=== PATIENT | male | born 1980 | race Caucasian/White ===

== ENCOUNTER → 2017-12-03 12:37 | Outpatient (CLI) | payer OTHER, SELFPAY ==
[2017-12-03 13:22] LABS: Basophils # 0.1 K/mm3 (0-0.2); Eosinophils # 0.3 K/mm3 (0.0-0.4); Eosinophils % 3.7 % (0.1-12.0); Hematocrit 52.1 % (42.0-52.0); Hemoglobin 16.7 g/dL (14.1-18.0); Lymphocytes % 22.4 K/mm3 (10-50); Mean Corpuscular Volume 90.5 fl (80-94); Mean Platelet Volume 7.5 fl (7.4-10.4); Monocytes # 0.7 K/mm3 (0.1-1.0); Monocytes % 7.4 % (1.7-9.3); Neutrophils # 5.9 K/mm3 (1.8-7.8); Neutrophils % 65.6 % (37.0-80.0); Platelet Count 256 K/mm3 (142-424); Red Blood Count 5.75 M/mm3 (4.60-6.20); Red Cell Distribution Width 12.7 % (11.5-17.5); White Blood Count 8.9 K/mm3 (4.8-10.8)
[2017-12-03 13:40] LABS: Alanine Aminotransferase 28 U/L (12-78); Albumin Level 4.2 gm/dL (3.4-5.0); Albumin/Globulin Ratio 1.3 (1.1-1.8); Alkaline Phosphatase 79 U/L (46-116); Anion Gap 10.5 mEq/L (5-15); Aspartate Amino Transferase 16 U/L (15-37); Bilirubin,Total 0.3 mg/dL (0.2-1.0); Blood Urea Nitrogen 17 mg/dL (7-18); Calcium 9.2 mg/dL (8.5-10.1); Carbon Dioxide 31 mmol/L (21.0-32.0); Chloride 106 mmol/L (98-107); Chol/HDL Ratio 3.1 (1-3.5); Cholesterol 184 mg/dL (140-200); Creatinine,Serum 0.91 mg/dL (0.70-1.30); Estimated Glomerular Filt Rate 94 ml/min (>60); GFR (African American) 113 ML/MIN (>60); Globulin 3.3 gm/dl (1.3-3.2); Glucose 98 mg/dL (74-106); HDL Cholesterol 59 mg/dL (27-67); LDL Cholesterol 113 mg/dL (0-130); Potassium 4.5 mmoL/L (3.5-5.1); Sodium 143 mmol/L (136-145); Thyroid Stimulating Hormone 2.32 uIU/ml (0.358-3.740); Total Protein,Serum 7.5 gm/dL (6.4-8.2); Triglycerides 61 mg/dL (30-200); VLDL Cholesterol 12 mg/dL (0-40)
[2017-12-04 15:41] LABS: Vitamin B12 769 pg/mL (232-1245)
== END ==
PROVIDERS: Visit Provider Internal Medicine Adolescent Medicine
DX: Z00.00 Encounter for general adult medical examination without abnormal findings (principal); E03.9 Hypothyroidism, unspecified; G25.0 Essential tremor
CPT/HCPCS: 36415; 80053; 80061; 82607; 84443; 85025

== ENCOUNTER 2020-05-10 15:45 | Emergency (ER) | payer BC, SELFPAY ==
[2020-05-10 16:12] VITALS: BP 134/84; PULSE 64; RESP 19; TEMP 36.9; O2SAT 98; BMI 25.8
--- NOTE | 2020-05-10 16:18 | HMH.EDUTC ---
[facility] Disposition Clinical Impression: Low back pain Qualifiers: Chronicity: acute Back pain laterality: left Sciatica presence: with sciatica Sciatica laterality: sciatica of left side Qualified Code(s): M54.42 - Lumbago with sciatica, left side Sciatica Qualifiers: Laterality: left Qualified Code(s): M54.32 - Sciatica, left side Disposition: Home, Self-Care Condition on Discharge: Good Instructions: Low Back Pain, DI for Low Back Pain Additional Instructions: Go home and rest. It would be best if you rested tomorrow too. No heavy lifting. No twisting. Take the oral medications as directed. The muscle relaxer (robaxin) will make you drowsy, so don't drive or operate heavy machinery after taking it. Don't start the oral steroids (medrol dose pack) until tomorrow, since you had the shots in here today. Follow up with your regular doctor. GO TO THE ER FOR ANY WORSENING SYMPTOMS OR CONCERN, ESPECIALLY BOWEL OR BLADDER ISSUES, SADDLE AREA NUMBNESS, FEVER, ETC Prescriptions: methylPREDNISolone [Medrol] 4 mg PO DIRECTED 6 Days #21 tab.ds.pk Transmission Status: Received by [id number] Methocarbamol [Robaxin 500mg Tab] 500 mg PO BIDP PRN #30 tab PRN Reason: Muscle Spasm Transmission Status: Received by [id number] Referrals: Juno Ambrocio [Primary Care Provider] - Forms: Work/School Release Time of Disposition: 16:34 Medical Decision Making - Medical Records Medical records reviewed: No: I reviewed the patient's medical records. - Mark Inquiry Pt receiving controlled substance: No Vital Signs: 05/10/20 16:12 05/10/20 16:51 Temperature 98.4 F 98.4 F Temperature Source Oral Pulse Rate 64 Pulse Rate [Right Brachial] 64 Respiratory Rate 19 19 Blood Pressure 134/84 Blood Pressure [Right Arm] 134/84 Blood Pressure Mean [Right Arm] 100 Blood Pressure Source [Right Arm] Automatic Cuff Blood Pressure Position [Right Arm] Sitting 02 Sat by Pulse Oximetry 98 Oxygen Delivery Method Room Air Orders (Tests/Meds): ED MEDICATIONS Discontinued Medications Generic Name Dose Route Start Last Admin Trade Name Freq PRN Reason Stop Dose Admin Ketorolac Tromethamine 60 mg 05/10/20 16:32 05/10/20 16:40 Toradol 60mg/2ml Vial IM 05/10/20 16:33 60 mg ONCE ONE Administration Methylprednisolone Sodium Succinate 125 mg 05/10/20 16:32 05/10/20 16:40 Solu-Medrol 125mg/2ml Vial IM 05/10/20 16:33 125 mg ONCE ONE Administration [facility] HPI - General Stated complaint: back pain Time Seen by Provider: 05/10/20 16:18 Mode of Arrival: Ambulatory Source of Information: Patient Limitations: No Limitations Description of Symptoms (Recalled from Triage Doc. by RN): PATIENT C/O LOWER BACK PAIN SINCE SUNDAY HEENT Symptoms (Recalled from RN notes): No Resp Symptoms (Recalled from RN notes): No Skin Symptoms (Recalled from RN notes): No MS Symptoms (Recalled from RN notes): Yes Functional Status (Recalled from RN notes): WNL - History of Present Illness Provider Complaint: He c/o left sided low back pain that radiates down his left leg at times. This started 3 days ago. - Related Data Home Medications Medication Instructions Recorded Confirmed Primidone [Mysoline 50mg tablet] 50 mg PO DAILY 12/10/17 12/10/17 Previous Rx's Medication Instructions Recorded levoFLOXacin [Levaquin 500mg 500 mg PO DAILY #10 tab 12/11/17 tab] Azithromycin [Z-Gordon 250mg Tab*] 250 mg PO UD DOSE PK #6 tab 05/09/18 Dextromethorphan Polistirex 10 ml PO Q12H #350 te.er.[email or web address] 05/09/18 [Delsym] Methocarbamol [Robaxin 500mg Tab] 500 mg PO BIDP PRN #30 tab 05/10/20 methylPREDNISolone [Medrol] 4 mg PO DIRECTED 6 Days #21 05/10/20 tab.ds.pk Allergies Allergy/AdvReac Type Severity Reaction Status Date / Time amoxicillin [AMOXICILLIN] Allergy Unknown Verified 12/10/17 22:35 chlorpheniramine Allergy Unknown Verified 12/10/17 22:35 RickFrom NENA Ortega
[2020-05-10 16:51] VITALS: BP 134/84; PULSE 64; RESP 19; TEMP 36.9; O2SAT 98
== END 2020-05-10 17:03 | disposition home or self-care (01) ==
PROVIDERS: Emergency Provider Nurse Practitioner Family; PCP Family Medicine
DX: M54.42 Lumbago with sciatica, left side (principal); Z88.1 Allergy status to other antibiotic agents; Z88.8 Allergy status to other drugs, medicaments and biological substances
CPT/HCPCS: 96372; 99201

== ENCOUNTER 2020-06-03 08:00 | Outpatient (RCR) | payer BC, SELFPAY ==
--- NOTE | 2020-05-20 11:46 | HMH.PTOPEV ---
PT Outpatient Evaluation Rehab PT Outpatient Evaluation Start: 05/20/20 10:54 Freq: Status: Active Protocol: Document 05/20/20 11:30 LIZZEDGARDO (Rec: 05/20/20 11:45 LIZZJESUSCHAUNCEY [id number]) Electronically Signed By James Del Rosario, PT 05/20/20 11:30 Outpatient Therapy Subjective History Subjective History Patient is a 39 year old male presenting to outpatient PT with reports of acute LBP with BLE radicular symptoms of insidious onset starting 2 weeks ago. Symptoms worse in the morning . No recent imaging to reports. Centralization of symptoms noted with lumbar extension. No other comorbidities to report. Chief Complaint Pain,Stiff,Paresthesia Symptom Type Ache,Sharp Symptoms Relieved By Rest/Positioning,Prescription Meds Symptoms Aggravated By Standing,Physical Activity, Twisting Prior Functional Limitations None Current Functional Limitations Lifting,Housework,Standing, Squatting,Recreation Activity, Walking,Bending/Stooping Symptom Description Constant but Variable Level of pain today (0-10) 5 Pain scale - at its best (0-10) 4 Pain scale - at its worst (0-10) 7 Lumbopelvic Eval Posture Thoracic Spine Posture Standing Position Neutral Lumbar Spine Posture Standing Position Increased Lordosis Assistive device Assistive Devices None / NA Gait Observation General Gait Pattern Observation Antalgic Gait,Decrease Weight Bear (L) Palapation tenderness bilateral lumbar spinal tenderness Yes: L 3/4/5 3/4 paraspinal tenderness Yes buttock tenderness Yes Lumbar/Sacral Palpation Findings Tenderness Accessory Movement L3 bilateral L4 bilateral L5 bilateral S1 bilateral Range of Motion Lumbar Spine Active Flexion Range of 32 inc radic Motion (degrees) Lumbar Spine Active Extension Range of 12 B iliopsoas dist Motion (degrees) Left Lumbar Spine Lateral Flexion Active 18 Range of Motion (degrees) Right Lumbar Spine Lateral Flexion 24 Active Range of Motion (degrees) Lumbar Spine ROM Limitations Soft Tissue Tightness Manual Muscle Test Bilateral Knee Extension Strength Grade 5 Normal Knee Flexion Strength Grade 5 Normal Hip Flexion Strength Grade
== END 2020-06-03 09:05 | disposition home or self-care (01) ==
LOC: PT 08:00
PROVIDERS: PCP Family Medicine; Visit Provider Family Medicine
DX: M54.42 Lumbago with sciatica, left side; M51.26 Other intervertebral disc displacement, lumbar region
CPT/HCPCS: 97010; 97014; 97110; 97163; G0283

== ENCOUNTER → 2020-09-09 15:39 | Outpatient (CLI) | payer BC, SELFPAY ==
--- NOTE | 2020-09-09 15:43 | XR_ITS ---
PROCEDURE: XR LUMBAR SPINE MIN 4V CLINICAL INDICATION: LUMBAGO OF LUMBAR REGION W/ SCIATICA COMPARISON: No exams were available for comparison FINDINGS: No fracture or dislocation. No lytic or blastic change. There is normal mineralization. The disc spaces are well preserved. There is 3 mm anterolisthesis of L5 on S1. There are post Faith foci of increased density within the region of the colon and may be related to ingested material. Other findings:None. IMPRESSION: Minimal anterolisthesis of L5 on S1 otherwise negative lumbar spine. Dictated by: Alex Moses MD 09/09/2020 16:38 Alex Moses MD in [place] 09/09/2020 16:38
--- NOTE | 2020-09-09 15:44 | XR_ITS ---
PROCEDURE: XR HIP LT 2-3V W/PELVIS CLINICAL INDICATION: LUMBAGO OF LUMBAR REGION W/ SCIATICA Hip pain COMPARISON: No exams were available for comparison FINDINGS: No fracture or dislocation is evident. No significant degenerative change. No lytic or blastic change. Unremarkable soft tissues. There are multiple pelvic phleboliths present IMPRESSION: No acute findings. Dictated by: Alex Moses MD 09/09/2020 16:34 Alex Moses MD in [place] 09/09/2020 16:34
== END ==
LOC: RAD 15:40
PROVIDERS: PCP Family Medicine; Visit Provider Family Medicine
DX: M54.42 Lumbago with sciatica, left side (principal); M54.5 Low back pain; M25.552 Pain in left hip
CPT/HCPCS: 72110; 73502

== ENCOUNTER → 2020-10-27 14:11 | Outpatient (CLI) | payer BC, SELFPAY ==
--- NOTE | 2020-10-27 14:16 | MR_ITS ---
PROCEDURE: MR LUMBAR SPINE WO CON CLINICAL INDICATION: LBP NO TRAUMA Pt c/o lbp with bilateral leg pain COMPARISON: CR XR LUMBAR SPINE MIN 4V from 09/09/2020 TECHNIQUE: Standard multiplanar multiecho sequences are performed without contrast. 3-D MIP and myelographic images are also rendered and reviewed FINDINGS: There is normal alignment. The spinal cord ends at the L1-L2 level. T12-L1: Mild degenerative disc disease. L1-L2: Unremarkable. L2-L3: Unremarkable. L3-L4: Unremarkable. L4-5: Unremarkable. L5-S1: Bulging disc with a small broad-based central/left paracentral disc protrusion which abuts the anteromedial aspect of both S1 nerve roots right greater than left. Facet hypertrophic changes are present with mild bilateral lateral recess and foraminal narrowing. IMPRESSION: Bulging disc at L5-S1 with a small broad-based central/left paracentral disc protrusion which abuts the anteromedial aspect of both S1 nerve roots right more so than left Dictated by: Alex Moses MD 10/28/2020 11:48 Alex Moses MD in [place] 10/28/2020 11:48
== END ==
LOC: RAD 14:11
PROVIDERS: PCP Family Medicine; Visit Provider Nurse Practitioner
DX: M54.5 Low back pain (principal); M51.26 Other intervertebral disc displacement, lumbar region
CPT/HCPCS: 72148; 76376

== ENCOUNTER 2021-02-20 21:17 | Emergency (ER) | payer BC, SELFPAY ==
[2021-02-20 21:38] VITALS: BP 132/82; PULSE 76; RESP 16; TEMP 37.6; O2SAT 97; BMI 30.1
[2021-02-20 22:20] LABS: Basophils # 0.1 K/mm3 (0-0.2); Basophils % 1.1 % (0.1-2.0); Eosinophils # 0.3 K/mm3 (0.0-0.4); Eosinophils % 3.5 % (0.1-12.0); Hematocrit 39.8 % (42.0-52.0); Hemoglobin 13.2 g/dL (14.1-18.0); Lymphocytes # 2.4 K/mm3 (0.7-4.5); Lymphocytes % 28.3 % (10-50); Mean Corpuscular HGB Conc 33.1 g/dL (31.8-35.4); Mean Corpuscular Hemoglobin 27.9 pg (27.0-31.2); Mean Corpuscular Volume 84.3 fl (80-94); Monocytes # 0.4 K/mm3 (0.1-1.0); Monocytes % 4.3 % (1.7-9.3); Neutrophils # 5.3 K/mm3 (1.8-7.8); Neutrophils % 62.8 % (37.0-80.0); Platelet Count 573 K/mm3 (142-424); Red Blood Count 4.73 M/mm3 (4.60-6.20); Red Cell Distribution Width 13.1 % (11.5-17.5); White Blood Count 8.4 K/mm3 (4.8-10.8)
[2021-02-20 22:29] LABS: Alanine Aminotransferase 36 U/L (12-78); Albumin Level 4.3 g/dl (3.5-5.0); Albumin/Globulin Ratio 1.3 (1.1-1.8); Alkaline Phosphatase 94 U/L (38-126); Anion Gap 11.7 mEq/L (5-15); Aspartate Amino Transferase 27 U/L (17-59); Bilirubin,Total 0.4 mg/dl (0.2-1.3); Blood Urea Nitrogen 18 mg/dl (9-20); Calcium 9.3 mg/dl (8.4-10.2); Carbon Dioxide 29 mmol/L (22.0-30.0); Chloride 102 mmol/L (98-107); Creatinine Clearance Estimated 132 mL/min (50-200); Estimated Glomerular Filt Rate 83 ml/min (>60); GFR (African American) 100 ML/MIN (>60); Globulin 3.2 g/dL (1.3-3.2); Glucose 119 mg/dl (74-100); Lactic Acid 1.1 mmol/L (0.7-2.1); Potassium 3.7 mmoL/L (3.5-5.1); Sodium 139 mmol/L (136-145); Total Protein,Serum 7.5 g/dl (6.3-8.2)
[2021-02-20 22:46] LABS: Procalcitonin 0.073 ng/mL (0.0-2.0)
--- NOTE | 2021-02-20 22:46 | HMH.EDWNDL ---
ED Disposition Clinical Impression: Encounter for postoperative wound check Disposition: Home, Self-Care Condition on Discharge: Good Instructions: DI for Laceration Repair Referrals: Lionel Crocker MD [Primary Care Provider] - - Critical Care Critical Care Time: No Attestation: On 02/20/21, the high probability of a clinically significant, sudden or life threatening deterioration of the following system(s) required my full and direct attention, intervention and personal management. The time I documented below is in addition to time spent performing reported procedures but includes the following listed in this critical care notation. Medical Decision Making - Medical Records Medical records reviewed: Yes: I reviewed the patient's medical records. - Mark Inquiry Pt receiving controlled substance: No Vital Signs: 02/20/21 21:38 Temperature 99.7 F H Temperature Source Oral Pulse Rate [Right Brachial] 76 Respiratory Rate 16 Blood Pressure [Right Arm] 132/82 Blood Pressure Mean [Right Arm] 98 Blood Pressure Source [Right Arm] Automatic Cuff Blood Pressure Position [Right Arm] Supine 02 Sat by Pulse Oximetry 97 Oxygen Delivery Method Room Air - Lab Data Lab results reviewed: Yes: I reviewed the patient's lab results. Lab Results 02/20/21 22:00: WBC 8.4, RBC 4.73, Hgb 13.2 L, Hct 39.8 L, MCV 84.3, MCH 27.9, MCHC 33.1, RDW 13.1, Plt Count 573 H, MPV 7.0 L, Neut % (Auto) 62.8, Lymph % (Auto) 28.3, Amador % (Auto) 4.3, Eos % (Auto) 3.5, Baso % (Auto) 1.1, Neut # (Auto) 5.3, Lymph # (Auto) 2.4, Amador # (Auto) 0.4, Eos # (Auto) 0.3, Baso # (Auto) 0.1 02/20/21 22:00: Sodium 139, Potassium 3.7, Chloride 102, Carbon Dioxide 29, Anion Gap 11.7, BUN 18, Creatinine 1.00, Estimated Creat Clear 132, Estimated GFR 83, Est GFR ( Amer) 100, Glucose 119 H, Calcium 9.3, Total Bilirubin 0.4, AST 27, ALT 36, Alkaline Phosphatase 94, Total Protein 7.5, Albumin 4.3, Globulin 3.2, Albumin/Globulin Ratio 1.3 02/20/21 22:00: Lactate 1.1 Result diagrams: 02/20/21 22:00 02/20/21 22:00 Orders (Tests/Meds): ORDERS Category Date Time Status CT lumbar spine w con Stat Cat Scan 02/20/21 21:[address] thoracic spine w con Stat Cat Scan 02/20/21 21:55 Ordered Comprehensive Metabolic Panel Stat Lab 02/20/21 22:00 Results Procalcitonin Stat Lab 02/20/21 22:00 Results Blood Culture Stat Micro 02/20/21 22:00 Received Wound Culture and Gram Stain Stat Micro 02/20/21 21:55 Ordered Wound/Laceration HPI - General Chief Complaint: Wound/Laceration Stated Complaint: incision pain Time Seen by Provider: 02/20/21 22:40 Mode of Arrival: Ambulatory Limitations: No Limitations Description of Symptoms (Recalled from ER Triage Doc. by RN): Had spinal fusion to L5 and S1 on February [address] Harrell in . [place] in place to lower back. Wound is draining, slight reddness around the site - History of Present Illness HPI narrative: This is a 40-year-old male presenting for wound check. Patient had a lumbar spine fusion by Dr. Harrell approximately 2 weeks ago and was closed with ruma. Patient was concerned as he was started to have drainage from the upper portion of the wound. He denies any purulence or pus and describes the drainage mostly as clear sanguinous. He denies any fever chills. No increased pain at the surgical site no radicular symptoms as currently. - Related Data Home Medications Medication Instructions Recorded Confirmed Oxycodone HCl 1 cap .ROUTE Q4-6H PRN 02/20/21 02/20/21 Previous Rx's Medication Instructions Recorded Methocarbamol [Robaxin 500mg Tab] 500 mg PO BIDP PRN #30 tab 05/10/20 Allergies Allergy/AdvReac Type Severity Reaction Status Date / Time amoxicillin [AMOXICILLIN] Allergy Unknown Verified 12/10/17 22:35 chlorpheniramine Allergy Unknown Verified 12/10/17 22:35 [From [facility]] codeine [From [facility]] Allergy Unknown Verified 12/10/17 2
[2021-02-20 23:14] VITALS: BP 131/89; PULSE 87; RESP 20; TEMP 37.5; O2SAT 98
== END 2021-02-20 23:26 | disposition home or self-care (01) ==
PROVIDERS: Emergency Provider Emergency Medicine; PCP Family Medicine
DX: G89.18 Other acute postprocedural pain (principal); B96.89 Other specified bacterial agents as the cause of diseases classified elsewhere; Z88.8 Allergy status to other drugs, medicaments and biological substances; F17.210 Nicotine dependence, cigarettes, uncomplicated
CPT/HCPCS: 80053; 83605; 84145; 85025; 87040; 87070; 87077; 87186; 87205; 99283

== ENCOUNTER 2021-05-13 08:56 | Emergency (ER) | payer BC, SELFPAY ==
[2021-05-13 09:11] VITALS: BP 142/93; PULSE 57; RESP 14; TEMP 37; O2SAT 97; BMI 30.8
[2021-05-13 09:35] VITALS: BP 142/93; PULSE 57; RESP 14; TEMP 37
--- NOTE | 2021-05-13 09:44 | HMH.EDUTC ---
[facility] [place] Clinical Impression: Viral syndrome, Exposure to COVID-19 virus Disposition: Home, Self-Care Condition on Discharge: Good Instructions: DI for COVID-19 (Suspected or Confirmed ), Preventing the Spread of Coronavirus Discharge Instructions Additional Instructions: Drink plenty of fluids. Take tylenol or ibuprofen for pain or fever. Take the medications as directed. Follow up with your regular doctor. GO TO THE ER FOR ANY WORSENING SYMPTOMS Quarantine until you know the results of your covid-19 test. If it is positive, the health department should call you and give you further instructions about your length of Quarantine and other things. Notify your school or workplace of your results and follow their instructions regarding return to work/school. = Prescriptions: Benzonatate [Tessalon Perle 100mg Cap] 100 mg PO TIDP PRN #30 cap PRN Reason: Cough Transmission Status: Received by [facility] Ondansetron [Zofran 4mg ODT] 4 mg PO DAILYP PRN #12 tab PRN Reason: Nausea Transmission Status: Received by [facility] Referrals: Lionel Crocker MD [Primary Care Provider] - Time of Disposition: 09:47 Medical Decision Making - Medical Records Medical records reviewed: No: I reviewed the patient's medical records. - Mark Inquiry Pt receiving controlled substance: No Vital Signs: 05/13/21 09:11 05/13/21 09:35 Temperature 98.6 F 98.6 F Temperature Source Oral Pulse Rate 57 L Pulse Rate [Left] 57 L Respiratory Rate 14 14 Blood Pressure 142/93 H Blood Pressure [Right Arm] 142/93 H Blood Pressure Mean [Right Arm] 109 02 Sat by Pulse Oximetry 97 - Lab Data Lab results reviewed: Yes: I reviewed the patient's lab results. Lab Results 05/13/21 09:33: Strep Scn Rapid Clinic Negative Orders (Tests/Meds): ORDERS Category Date Time Status Covid-19 Nasal PCR ([facility]) Routine Lab 05/13/21 09:12 Received Strep Screen Confirmation Stat Micro 05/13/21 09:33 Received [facility] HPI - General Stated complaint: Sore throat; cough; runny nose Time Seen by Provider: 05/13/21 09:44 Mode of Arrival: Ambulatory Source of Information: Patient Limitations: No Limitations HEENT Symptoms (Recalled from RN notes): Yes (sore throat, [place], and nasal drainage and congestion) Resp Symptoms (Recalled from RN notes): Yes (cough) Skin Symptoms (Recalled from RN notes): No MS Symptoms (Recalled from RN notes): No Functional Status (Recalled from RN notes): body aches - History of Present Illness Provider Complaint: He has had a runny nose and a dry cough for the past 4 days. - Related Data Home Medications Medication Instructions Recorded Confirmed Oxycodone HCl 1 cap .ROUTE Q4-6H PRN 02/20/21 02/20/21 Previous Rx's Medication Instructions Recorded Methocarbamol [Robaxin 500mg Tab] 500 mg PO BIDP PRN #30 tab 05/10/20 Benzonatate [Tessalon Perle 100mg 100 mg PO TIDP PRN #30 cap 05/13/21 Cap] Ondansetron [Zofran 4mg ODT] 4 mg PO DAILYP PRN #12 tab 05/13/21 Allergies Allergy/AdvReac Type Severity Reaction Status Date / Time amoxicillin [AMOXICILLIN] Allergy Unknown Verified 12/10/17 22:35 chlorpheniramine Allergy Unknown Verified 12/10/17 22:35 [From [facility]] codeine [From [facility]] Allergy Unknown Verified 12/10/17 22:35 dihydrocodeine Allergy Unknown Verified 12/10/17 22:35 [From [facility]] phenylephrine Allergy Unknown Verified 12/10/17 22:35 [From [facility]] pseudoephedrine Allergy Unknown Verified 12/10/17 22:35 [From [facility]] - Worker's Comp Is this a Worker's Comp case?: No [facility] History - Hepatitis A Screen Drug use history?: No High risk sexual behaviors?: No History of sexually transmitted infection?: No Currently employed?: No Childcare worker?: No Do you have indoor plumbing?: Yes Do you have electricity?: Yes Attestation statement:: This patient has been s
[2021-05-13 09:45] LABS: UTC Strep Screen (Rapid) Negative (Negative)
== END 2021-05-13 09:51 | disposition home or self-care (01) ==
PROVIDERS: Emergency Provider Nurse Practitioner Family; PCP Family Medicine
DX: U07.1 COVID-19 (principal); B34.9 Viral infection, unspecified; F17.210 Nicotine dependence, cigarettes, uncomplicated
CPT/HCPCS: 87880; 99203; G0463; U0003

== ENCOUNTER 2021-10-27 19:56 | Emergency (ER) | payer BC, SELFPAY ==
[2021-10-27 20:09] VITALS: BP 129/85; PULSE 60; RESP 18; TEMP 37.1; O2SAT 97; BMI 30.7
[2021-10-27 20:23] LABS: UTC Strep Screen (Rapid) Positive (Negative)
--- NOTE | 2021-10-27 20:29 | HMH.EDUTC ---
[facility] Disposition Clinical Impression: Strep throat Disposition: Home, Self-Care Condition on Discharge: Good Instructions: Strep Throat, DI for Strep Throat Additional Instructions: *Monitor Temp, Over the counter Motrin or Tylenol as directed/as needed Tylenol every 4 hours and Motrin every 6 hours (as long as your family doctor has told you that you can take it) for fever or pain. and straight to ER if unable to lower temp less than 101.0 after medication given *Warm salt water gargles may help to soothe the throat *Throat Lozenges *Warm fluids like tea with honey may help to soothe the throat *Sleep elevated *Humidifier/Vaporizer *If you did not take Penicillin shot or was unable to, start taking antibiotic immediately and make sure that you take it for the FULL length of time although you should start to feel better in 24-48 hours *change toothbrush and toothpaste 24-48 hours after starting to take antibiotics so you do not reinfect yourself Monitor Temp. Tylenol and/or Ibuprofen as needed. ER if fever is no less than 101 despite alternating Tylenol and Ibuprofen * Encourage fluids, water, Gatorade, powerade, pedialyte if infant/toddler/or child *Cold fluids, popsicles and ice cream may feel good on his throat Follow up IMMEDIATELY for new or worsening symptoms or no Noticeable improvement over the next 48-72 hours. 911 for difficulty breathing or swallowing Prescriptions: Azithromycin [Z-Gordon 250mg Tab] 250 mg PO DIRECTED #6 tab Transmission Status: Pending to [id number] Referrals: Lionel Crocker MD [Primary Care Provider] - As needed Time of Disposition: 20:50 Medical Decision Making - Mark Inquiry Pt receiving controlled substance: No Mark was queried for this patient: No Vital Signs: 10/27/21 20:09 Temperature 98.8 F Temperature Source Oral Pulse Rate [Right Radial] 60 Respiratory Rate 18 Blood Pressure [Right Arm] 129/85 Blood Pressure Mean [Right Arm] 99 Blood Pressure Source [Right Arm] Automatic Cuff Blood Pressure Position [Right Arm] Sitting 02 Sat by Pulse Oximetry 97 Oxygen Delivery Method Room Air - Lab Data Lab results reviewed: Yes: I reviewed the patient's lab results. Lab Results 10/27/21 20:09: Strep Scn Rapid Clinic Positive A Orders (Tests/Meds): ED MEDICATIONS Discontinued Medications Generic Name Dose Route Start Last Admin Trade Name Larry PRN Reason Stop Dose Admin Azithromycin 500 mg 10/27/21 20:36 10/27/21 20:45 Azithromycin 250mg Tablet PO 10/27/21 20:37 500 mg ONCE ONE Administration Medical Decision Narrative: Patient state that he has taken azithromycin before without complications [facility] HPI - General Stated complaint: sore throat Time Seen by Provider: 10/27/21 20:29 Mode of Arrival: Ambulatory Source of Information: Patient Limitations: No Limitations Description of Symptoms (Recalled from Triage Doc. by RN): C/O sore throat since yesterday. Advises his has strep throat HEENT Symptoms (Recalled from RN notes): Yes (sore throat) Resp Symptoms (Recalled from RN notes): No Skin Symptoms (Recalled from RN notes): No MS Symptoms (Recalled from RN notes): No Functional Status (Recalled from RN notes): n/a - History of Present Illness Provider Complaint: Patient states that he has been having sore throat since yesterday States that his was dx with strep throat recently and he thinks he may have it now too - Related Data Home Medications Medication Instructions Recorded Confirmed Oxycodone HCl 1 cap .ROUTE Q4-6H PRN 02/20/21 02/20/21 Previous Rx's Medication Instructions Recorded Methocarbamol [Robaxin 500mg Tab] 500 mg PO BIDP PRN #30 tab 05/10/20 Benzonatate [Tessalon Perle 100mg 100 mg PO TIDP PRN #30 cap 05/13/21 Cap] Ondansetron [Zofran 4mg ODT] 4 mg PO DAILYP PRN #12 tab 05/13/21 Azithromycin [Z-Gordon 250mg Tab] 250 mg PO DIRECTED #6 tab 10/27/21 Allergies Allergy
[2021-10-27 21:06] VITALS: BP 129/85; PULSE 60; RESP 18; TEMP 37.1; O2SAT 97
== END 2021-10-27 21:08 | disposition home or self-care (01) ==
PROVIDERS: Emergency Provider Nurse Practitioner; PCP Family Medicine
DX: J02.0 Streptococcal pharyngitis (principal)
CPT/HCPCS: 87880; 99202; G0463

== ENCOUNTER 2022-07-12 23:59 | Emergency (ER) | payer BC, SELFPAY ==
[2022-07-13 00:01] VITALS: BP 143/80; PULSE 72; RESP 19; TEMP 36.9; O2SAT 97; BMI 26.5
--- NOTE | 2022-07-13 00:20 | XR_ITS ---
PROCEDURE INFORMATION: Exam: XR Chest Exam date and time: 07/13/2022 12:33 AM Age: 41 years old Clinical indication: Cough; Additional info: Cough, chest congestion TECHNIQUE: Imaging protocol: Radiologic exam of the chest. Views: 2 views. COMPARISON: CR CXR CHEST(2 VIEWS-NOT PORTABLE) 12/14/2015 5:10 PM FINDINGS: Lungs: Unremarkable. No consolidation. Pleural spaces: Unremarkable. No pleural effusion. No pneumothorax. Heart/Mediastinum: Unremarkable. No cardiomegaly. Vasculature: Unremarkable. Bones/joints: Unremarkable. IMPRESSION: No acute findings.
[2022-07-13 00:25] LABS: Coronavirus 19, PCR Not Detected (NotDetected); Influenza A, PCR Not Detected (NotDetected); Influenza B, PCR Not Detected (NotDetected)
[2022-07-13 00:32] LABS: Strep Scrn Group A (Rapid) Negative (Negative)
--- NOTE | 2022-07-13 00:48 | HMH.EDURI ---
Discharge Plan Disposition Patient Disposition: Home, Self-Care Prescriptions Prescriptions: New azithromycin [azithromycin] 250 mg tablet 250 mg PO DIRECTED Qty: 6 0RF Rx Instructions: Take two (2) tablets on day #1, then one (1) tablet day #2 thru #5 benzonatate 100 mg Capsule 100 mg PO Q8H Qty: 14 0RF prednisone [prednisone] 20 mg tablet 20 mg PO BID Qty: 10 0RF Referrals Follow up/Referrals: Chito Rose MD [Primary Care Provider] - See instructions Clinical Impressions Clinical Impression: Bronchitis Instructions Patient Instructions: DI for Acute Bronchitis Discharge ED Provider: Maxwell Tovar URI/Sore Throat HPI General Chief Complaint: Upper Respiratory Infection Stated Complaint: Sore throat,cough,congestion Time Seen by Provider: 07/13/22 00:48 Mode of Arrival: Family Vehicle Source of Information: Patient, Spouse and Medical Record Limitations: No Limitations Description of Symptoms (Recalled from ER Triage Doc. by RN): Pt c/o sore throat, cough, and chest congestion for 1 week. States he was taking mucinex and it felt like it got better, then it back slid.. Pt now taking Robitussin. Denies any n/v/d. Denies any fever, chills. Denies any SOA. 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 Complaint: fever, cough and sore throat Onset (ago): day(s) Duration: intermittent Severity: moderate Able to tolerate fluids by mouth: Yes Associated symptoms: denies other symptoms Treatments prior to arrival: acetaminophen Related Data Previous Rx's Medication Instructions Recorded azithromycin 250 mg tablet 250 mg PO DIRECTED #6 tabs 07/13/22 benzonatate 100 mg capsule 100 mg PO Q8H #14 caps 07/13/22 prednisone 20 mg tablet 20 mg PO BID #10 tabs 07/13/22 Allergies Allergy/AdvReac Type Severity Reaction Status Date / Time amoxicillin [AMOXICILLIN] Allergy Unknown Verified 12/10/17 22:35 chlorpheniramine Allergy Unknown Verified 12/10/17 22:35 [From [facility]] codeine [From [facility]] Allergy Unknown Verified 12/10/17 22:35 dihydrocodeine Allergy Unknown Verified 12/10/17 22:35 [From [facility]] phenylephrine Allergy Unknown Verified 12/10/17 22:35 [From [facility]] pseudoephedrine Allergy Unknown Verified 12/10/17 22:35 [From [facility]] [facility] Social History Smoking Status: Former smoker second hand exposure: Yes alcohol intake: never current occupational status: other Travel in the last 8 weeks: None ROS Obtained: Yes All systems reviewed & no additional complaints except as documented Physical Exam General General appearance: alert and in no apparent distress Head Head exam: normocephalic Eye Eye exam: Present PERRL and EOMI; Absent scleral icterus ENT ENT exam: Present mucous membranes moist Neck Neck exam: Present trachea midline Respiratory Respiratory exam: Present normal lung sounds bilaterally; Absent respiratory distress Cardiovascular Cardiovascular exam: Present regular rate Abdominal Exam Abdominal exam: Present soft; Absent distention, tenderness, guarding or rebound Extremities Exam Extremities exam: Present full ROM Neurological Exam Neurological exam: Present alert, oriented X3 and CN II-XII intact Psychiatric Psychiatric exam: Present normal affect Skin Skin exam: Absent rash Medical Decision Making Medical Records Medical records reviewed: Yes I reviewed the patient's medical records. Mark Inquiry Pt receiving controlled substance: No Vital Signs: 07/13/22 00:01 Temperature 98.5 F Temperature Source Oral Pulse Rate [Right] 72 Respiratory Rate 19 Blood Pressure [Right Arm] 143/80 H Blood Pressure Mean [Right Arm] 101 Blood Pressure Source [Right Arm] Automatic Cuff 02 Sat by Pulse Oximetry 97 Oxygen Delivery Method Room Air Lab Data Lab results reviewed: Yes I reviewed the patient's lab results.
[2022-07-13 01:32] VITALS: BP 140/78; PULSE 70; RESP 18; TEMP 36.6; O2SAT 98
== END 2022-07-13 01:34 | disposition home or self-care (01) ==
PROVIDERS: Emergency Provider Emergency Medicine; PCP Family Medicine
DX: J40 Bronchitis, not specified as acute or chronic (principal)
CPT/HCPCS: 71046; 87430; 99283; C9803; U0003; U0005

== ENCOUNTER 2022-08-19 11:30 | Emergency (ER) | payer BC, SELFPAY ==
[2022-08-19 12:38] VITALS: BP 126/83; PULSE 76; RESP 16; TEMP 37.2; O2SAT 97; BMI 26.6
[2022-08-19 12:43] LABS: UTC Strep Screen (Rapid) Negative (Negative)
[2022-08-19 12:45] LABS: UTC Influenza A Antigen Negative (Negative); UTC Influenza B Antigen Negative (Negative)
--- NOTE | 2022-08-19 13:10 | EXP.UTC ---
Discharge Plan Disposition Patient Disposition: Home, Self-Care Condition: Good Prescriptions Prescriptions: No Action azithromycin [azithromycin] 250 mg tablet 250 mg PO DIRECTED Qty: 6 0RF Rx Instructions: Take two (2) tablets on day #1, then one (1) tablet day #2 thru #5 benzonatate 100 mg Capsule 100 mg PO Q8H Qty: 14 0RF prednisone [prednisone] 20 mg tablet 20 mg PO BID Qty: 10 0RF Referrals Follow up/Referrals: Chito Rose MD [Primary Care Provider] - See instructions Clinical Impressions Clinical Impression: URI (upper respiratory infection) Instructions Patient Instructions: DI for Viral Upper Respiratory Infection -- Adult Discharge ED Provider: Sheridan Rodrigues [facility] [place] HPI General Stated complaint: swollen,painful throat Mode of Arrival: Ambulatory Source of Information: Patient Limitations: No Limitations Time Seen by Provider: 08/19/22 13:10 Description of Symptoms (Recalled from Triage Doc. by RN): pt comes in with c/o sore throat and headache. smyptoms began 1 week ago HEENT Symptoms (Recalled from RN notes): Yes Resp Symptoms (Recalled from RN notes): No Skin Symptoms (Recalled from RN notes): No MS Symptoms (Recalled from RN notes): No Functional Status (Recalled from RN notes): n/a Related Data Previous Rx's Medication Instructions Recorded azithromycin 250 mg tablet 250 mg PO DIRECTED #6 tabs 07/13/22 benzonatate 100 mg capsule 100 mg PO Q8H #14 caps 07/13/22 prednisone 20 mg tablet 20 mg PO BID #10 tabs 07/13/22 Allergies Allergy/AdvReac Type Severity Reaction Status Date / Time amoxicillin [AMOXICILLIN] Allergy Unknown Verified 08/19/22 12:39 chlorpheniramine Allergy Unknown Verified 08/19/22 12:39 [From [facility]] codeine [From [facility]] Allergy Unknown Verified 08/19/22 12:39 dihydrocodeine Allergy Unknown Verified 08/19/22 12:39 [From [facility]] phenylephrine Allergy Unknown Verified 08/19/22 12:39 [From [facility]] pseudoephedrine Allergy Unknown Verified 08/19/22 12:39 [From [facility]] prednisone AdvReac Mild Agitated Verified 08/19/22 12:39 Worker's Comp Is this a Worker's Comp case?: No PFSH PFSH Disclaimer: The information contained in this section may have been updated after the patient was seen, as this information can be updated by other users. Social History Smoking Status: Former smoker second hand exposure: Yes alcohol intake: never current occupational status: other Travel in the last 8 weeks: None ROS Obtained: Yes All systems reviewed & no additional complaints except as documented Constitutional Constitutional: Reports malaise Eyes Eyes: Reports system reviewed and no additional complaints, except as documented ENT Ears, Nose, Mouth, and Throat: Reports nasal discharge, Reports odynophagia, Reports post nasal drip and Reports sore throat Cardiovascular Cardiovascular: Reports system reviewed and no additional complaints, except as documented Respiratory Respiratory: Reports system reviewed and no additional complaints, except as documented Gastrointestinal Gastrointestingal: Reports system reviewed and no additional complaints, except as documented and odynophagia Genitourinary Male Genitourinary: Reports system reviewed and no additional complaints, except as documented Musculoskeletal Musculoskeletal: Reports system reviewed and no additional complaints, except as documented Integumentary/Breasts Skin/Breast: Reports system reviewed and no additional complaints, except as documented Neurologic Neurologic: Reports system reviewed and no additional complaints, except as documented Endocrine Endocrine: Reports system reviewed and no additional complaints, except as documented Hematologic/Lymphatic Henatologic/Lymphatic: Reports system reviewed and no additional complaints, except as documented Allergic/Immunologic Allergic/Immunologic: Reports system reviewed and
[2022-08-19 13:29] VITALS: BP 126/83; PULSE 76; RESP 16; TEMP 37.2
== END 2022-08-19 13:36 | disposition home or self-care (01) ==
PROVIDERS: Emergency Provider Nurse Practitioner Family; PCP Family Medicine
DX: J06.9 Acute upper respiratory infection, unspecified (principal)
CPT/HCPCS: 87804; 87880; 99212; G0463

== ENCOUNTER 2023-06-14 15:26 | Emergency (ER) | payer BC, SELFPAY ==
[2023-06-14 15:27] VITALS: BP 133/91; PULSE 52; RESP 18; TEMP 36.8; O2SAT 97; BMI 28.7
--- NOTE | 2023-06-14 15:37 | EXP.UTC ---
Discharge Plan Disposition Patient Disposition: Home, Self-Care Condition: Good Prescriptions Prescriptions: New ibuprofen [IBU] 800 mg tablet 800 mg PO Q8HP PRN (Reason: Moderate Pain) Qty: 30 0RF promethazine 25 mg tablet 25 mg PO TID PRN (Reason: nausea and vomiting) Qty: 20 0RF Referrals Follow up/Referrals: Chito Rose MD [Primary Care Provider] - See instructions Activity Restrictions/Add. Instructions Additional Instructions/Restrictions: Drink plenty of fluids. Take the medications as directed. Follow up with your regular doctor. GO TO THE ER FOR ANY WORSENING SYMPTOMS Clinical Impressions Clinical Impression: Headache, Epistaxis Stand Alone Forms Stand Alone Forms: Work/School Release Instructions Patient Instructions: DI for Nosebleed, DI for Headache Discharge ED Provider: Davis Drake [facility] General Stated complaint: BENTLEY, poss HBP Time Seen by Provider: 06/14/23 15:37 History of Present Illness Provider Complaint: He states that for the past 5 days he has had head ache. He had a nose bleed today at his job. So, he left there and came here. He is worried that his blood pressure is too high and it is causing his symptoms. Related Data Previous Rx's Medication Instructions Recorded ibuprofen 800 mg tablet (IBU) 800 mg PO Q8HP PRN Moderate Pain 06/14/23 #30 tabs promethazine 25 mg tablet 25 mg PO TID PRN nausea and 06/14/23 vomiting #20 tabs Allergies Allergy/AdvReac Type Severity Reaction Status Date / Time amoxicillin [AMOXICILLIN] Allergy Unknown Verified 06/14/23 15:44 chlorpheniramine Allergy Unknown Verified 06/14/23 15:44 [From [facility]] codeine [From [facility]] Allergy Unknown Verified 06/14/23 15:44 dihydrocodeine Allergy Unknown Verified 06/14/23 15:44 [From [facility]] phenylephrine Allergy Unknown Verified 06/14/23 15:44 [From [facility]] pseudoephedrine Allergy Unknown Verified 06/14/23 15:44 [From [facility]] prednisone AdvReac Mild Agitated Verified 06/14/23 15:44 [facility] Disclaimer: The information contained in this section may have been updated after the patient was seen, as this information can be updated by other users. Social History Smoking Status: Former smoker tobacco type: cigarettes second hand exposure: Yes alcohol intake: never current occupational status: other Travel in the last 8 weeks: None ROS Obtained: Yes All systems reviewed & no additional complaints except as documented Constitutional Constitutional: Denies chills, Denies fever(s) and Reports headache(s) Eyes Eyes: Denies eye discharge ENT Ears, Nose, Mouth, and Throat: Reports as per HPI, Denies dizziness, Denies otalgia, Reports epistaxis, Reports headache(s) and Denies sore throat Cardiovascular Cardiovascular: Denies chest pain Respiratory Respiratory: Denies shortness of breath, Denies chest congestion, Denies cough, Denies stridor and Denies wheezing Gastrointestinal Gastrointestingal: Denies nausea or vomiting Musculoskeletal Musculoskeletal: Reports system reviewed and no additional complaints, except as documented and Denies arthralgias Integumentary/Breasts Skin/Breast: Denies rash Neurologic Neurologic: Reports as per HPI, Denies dizziness, Reports headache(s) and Denies paresthesias Allergic/Immunologic Allergic/Immunologic: Denies wheezing Physical Exam General General appearance: alert and in no apparent distress Head Head exam: atraumatic, normocephalic and normal inspection Eye Eye exam: Present normal appearance, PERRL and EOMI ENT ENT exam: Present normal exam, normal oropharynx, mucous membranes moist, TM's normal bilaterally and normal external ear exam Neck Neck exam: Present normal inspection, full ROM and trachea midline; Absent meningismus or lymphadenopathy Chest Chest inspection: Present normal inspection and symmetric karrie
--- NOTE | 2023-06-14 17:57 | PC.NURSE ---
Pt's is going to take him home due to medication given. I explained that had to come into room for discharge.
[2023-06-14 18:04] VITALS: BP 128/96; PULSE 52; RESP 18; TEMP 36.8; O2SAT 97
== END 2023-06-14 18:04 | disposition home or self-care (01) ==
PROVIDERS: Emergency Provider Nurse Practitioner Family; PCP Family Medicine
DX: R51.9 Headache, unspecified (principal); R04.0 Epistaxis; Z87.891 Personal history of nicotine dependence
CPT/HCPCS: 96374; 96375; 99212; 99214; G0463

== ENCOUNTER 2023-10-19 11:45 | Emergency (ER) | payer BC, SELFPAY ==
[2023-10-19 12:10] VITALS: BP 130/82; PULSE 76; RESP 19; TEMP 36.6; O2SAT 99; BMI 31.1
--- NOTE | 2023-10-19 12:24 | ED_ITS ---
Discharge Plan Disposition Patient Disposition: Home, Self-Care Condition: Good Prescriptions Prescriptions: New cefdinir 300 mg capsule 300 mg PO BID Qty: 20 0RF No Action ibuprofen [IBU] 800 mg tablet 800 mg PO Q8HP PRN (Reason: Moderate Pain) Qty: 30 0RF promethazine 25 mg tablet 25 mg PO TID PRN (Reason: nausea and vomiting) Qty: 20 0RF Referrals Follow up/Referrals: Chito Rose MD [Primary Care Provider] - See instructions Activity Restrictions/Add. Instructions Additional Instructions/Restrictions: *Monitor Temp, Over the counter Motrin or Tylenol as directed/as needed Tylenol every 4 hours and Motrin every 6 hours (as long as your family doctor has told you that you can take it) for fever or pain. and straight to ER if unable to lower temp less than 101.0 after medication given *Warm salt water gargles may help to soothe the throat *Throat Lozenges? *Warm fluids like tea with honey may help to soothe the throat? *Sleep elevated *Humidifier/Vaporizer *Flonase 2 sprays in each nostril daily but be aware that it may take 2-3 days before you notice improvement *Bromfed may cause drowsiness. Know how it effects you (your child) before driving, caring for small child, or sending your child to school. Not other antihistamines/allergy medications while taking bromfed Your throat swab was sent for culture. Those results are typically sent to your primary care. Be sure to follow up in 2-3 days with your family doctor/primary care physician if no improvement so they can review those result and treat if necessary. If you don?t have a primary care doctor, I recommend you get one but in the mean time, you will have to return to a walk in clinic Follow up IMMEDIATELY for new or worsening symptoms or no Noticeable improvement over the next 48-72 hours. 911 for difficulty breathing or swallowing Instructions Patient Instructions: Strep Throat, DI for Strep Throat Discharge ED Provider: Ligia Meraz [facility] [facility] [place] H[place] General Stated complaint: fatigue, BENTLEY, congestion, body aches Mode of Arrival: Ambulatory Source of Information: Patient Limitations: No Limitations Time Seen by Provider: 10/19/23 12:24 Description of Symptoms (Recalled from Triage Doc. by RN): PATIENT C/O BODY ACHES, HEADACHE, FEELING TIRED, SORE THROAT, AND HEAD CONGESTION X 2 DAYS HEENT Symptoms (Recalled from RN notes): Yes Resp Symptoms (Recalled from RN notes): No Skin Symptoms (Recalled from RN notes): No MS Symptoms (Recalled from RN notes): No Functional Status (Recalled from RN notes): WNL History of Present Illness Provider Complaint: Patient states that he hasnt felt well for the last couple of days States that he has been having sore throat, body aches, fatigue and nasal congestion states that everyone in his household has been sick so today he came in to get tested Related Data Previous Rx's Medication Instructions Recorded ibuprofen 800 mg tablet (IBU) 800 mg PO Q8HP PRN Moderate Pain 06/14/23 #30 tabs promethazine 25 mg tablet 25 mg PO TID PRN nausea and 06/14/23 vomiting #20 tabs cefdinir 300 mg capsule 300 mg PO BID #20 caps 10/19/23 Allergies Allergy/AdvReac Type Severity Reaction Status Date / Time amoxicillin [AMOXICILLIN] Allergy Unknown Verified 06/14/23 15:44 chlorpheniramine Allergy Unknown Verified 06/14/23 15:44 [From [facility]] codeine [From [facility]] Allergy Unknown Verified 06/14/23 15:44 dihydrocodeine Allergy Unknown Verified 06/14/23 15:44 [From [facility]] phenylephrine Allergy Unknown Verified 06/14/23 15:44 [From [facility]] pseudoephedrine Allergy Unknown Verified 06/14/23 15:44 [From [facility]] prednisone AdvReac Mild Agitated Verified 06/14/23 15:44 Worker's Comp Is this a Worker's Comp case?: No [facility] Disclaimer: The information contained in this section may have been updated after the patient was seen, as this information can be updated by other users. Social History Smoking Status: Former smoker tobacco type: cigarettes second hand exposure: Yes alcohol intake: never current occupational status: other Travel in the last 8 weeks: None ROS Obtained: Yes All systems reviewed & no additional complaints except as documented and Yes Systems reviewed as appropriate & no additional complaints except as documented Constitutional Constitutional: Reports system reviewed and no additional complaints, except as documented, Reports as per HPI, Reports body ache, Reports chills, Reports fatigue and Reports fever(s) ENT Ears, Nose, Mouth, and Throat: Reports system reviewed and no additional complaints, except as documented, Reports as per HPI, Reports nasal congestion and Reports sore throat Cardiovascular Cardiovascular: Reports system reviewed and no additional complaints, except as documented and Reports as per HPI Respiratory Respiratory: Reports system reviewed and no additional complaints, except as documented and Reports as per HPI Gastrointestinal Gastrointestingal: Reports system reviewed and no additional complaints, except as documented and as per HPI Endocrine Endocrine: Reports fatigue Physical Exam General General appearance: alert and in no apparent distress ENT ENT exam: Present mucous membranes moist Expanded ENT Exam Nose exam: Absent sinus tenderness Throat exam: Present tonsillar erythema Respiratory Respiratory exam: Present normal lung sounds bilaterally; Absent respiratory distress or wheezes Cardiovascular Cardiovascular exam: Present regular rate, normal rhythm and normal heart sounds Abdominal Exam Abdominal exam: Present soft and normal bowel sounds; Absent distention or tenderness Neurological Exam Neurological exam: Present alert, oriented X3 and normal gait Medical Decision Making Mark Inquiry Pt receiving controlled substance: No Mark was queried for this patient: No Vital Signs: 10/19/23 12:10 Temperature 97.8 F Temperature Source Oral Pulse Rate [Right Brachial] 76 Respiratory Rate 19 Blood Pressure [Right Arm] 130/82 Blood Pressure Mean [Right Arm] 98 Blood Pressure Source [Right Arm] Automatic Cuff Blood Pressure Position [Right Arm] Sitting 02 Sat by Pulse Oximetry 99 Oxygen Delivery Method Room Air Lab Data Lab results reviewed: Yes I reviewed the patient's lab results. Medical Decision Narrative: Patient denies allergy to amoxicillin and reports has taken Cefdnir in the past without complications or reactions
[2023-10-19 12:35] VITALS: BP 130/82; PULSE 76; RESP 19; TEMP 36.6; O2SAT 99
[2023-10-19 12:47] LABS: UTC Influenza A Antigen Negative (Negative); UTC Influenza B Antigen Negative (Negative); UTC Strep Screen (Rapid) Positive (Negative)
== END 2023-10-19 12:50 | disposition home or self-care (01) ==
PROVIDERS: Emergency Provider Nurse Practitioner; PCP Family Medicine
DX: J02.0 Streptococcal pharyngitis (principal); R07.0 Pain in throat; R50.9 Fever, unspecified; R51.9 Headache, unspecified; R09.81 Nasal congestion; R53.83 Other fatigue; M79.18 Myalgia, other site
CPT/HCPCS: 87804; 87880; 99212; 99214; G0463

== ENCOUNTER 2023-11-09 09:00 | Emergency (ER) | payer BC, SELFPAY ==
[2023-11-09 09:05] VITALS: BP 128/86; PULSE 63; RESP 18; TEMP 36.8; O2SAT 97; BMI 31.5
--- NOTE | 2023-11-09 09:16 | ED_ITS ---
Discharge Plan Disposition Patient Disposition: Home, Self-Care Condition: Good Prescriptions Prescriptions: New amoxicillin 875 mg tablet 875 mg PO Q12H Qty: 20 0RF benzonatate 100 mg capsule 100 mg PO TIDP PRN (Reason: Cough) Qty: 30 0RF methylprednisolone 4 mg Tablets,Dose Pack 4 mg PO DIRECTED 6 Days Qty: 21 0RF Rx Instructions: Take 1 pack as directed for 6 days Referrals Follow up/Referrals: Chito Rose MD [Primary Care Provider] - See instructions Activity Restrictions/Add. Instructions Additional Instructions/Restrictions: Drink plenty of fluids. Take tylenol or ibuprofen for pain or fever. Take the medications as directed. Follow up with your regular doctor. GO TO THE ER FOR ANY WORSENING SYMPTOMS Throw your tooth brush away and get a new one. Clinical Impressions Clinical Impression: Strep throat Stand Alone Forms Stand Alone Forms: Work/School Release Instructions Patient Instructions: Strep Throat, DI for Strep Throat Discharge ED Provider: Davis Drake [facility] General Stated complaint: scratchy throat Time Seen by Provider: 11/09/23 09:16 History of Present Illness Provider Complaint: He states that he has had sore throat, fever, and malaise for the past 2 days. Related Data Previous Rx's Medication Instructions Recorded amoxicillin 875 mg tablet 875 mg PO Q12H #20 tabs 11/09/23 benzonatate 100 mg capsule 100 mg PO TIDP PRN Cough #30 caps 11/09/23 methylprednisolone 4 mg tablets in 4 mg PO DIRECTED 6 days #21 tabs 11/09/23 a dose pack Allergies Allergy/AdvReac Type Severity Reaction Status Date / Time chlorpheniramine Allergy Unknown Verified 11/09/23 09:55 [From [facility]] codeine [From [facility]] Allergy Unknown Verified 11/09/23 09:55 dihydrocodeine Allergy Unknown Verified 11/09/23 09:55 [From [facility]] phenylephrine Allergy Unknown Verified 11/09/23 09:55 [From [facility]] pseudoephedrine Allergy Unknown Verified 11/09/23 09:55 [From [facility]] prednisone AdvReac Mild Agitated Verified 11/09/23 09:55 [facility] Disclaimer: The information contained in this section may have been updated after the patient was seen, as this information can be updated by other users. Social History Smoking Status: Former smoker tobacco type: cigarettes second hand exposure: Yes alcohol intake: never current occupational status: other Travel in the last 8 weeks: None ROS Obtained: Yes All systems reviewed & no additional complaints except as documented Constitutional Constitutional: Reports chills and Reports fever(s) Eyes Eyes: Denies eye discharge ENT Ears, Nose, Mouth, and Throat: Reports as per HPI Cardiovascular Cardiovascular: Denies chest pain Respiratory Respiratory: Denies chest congestion and Reports cough Gastrointestinal Gastrointestingal: Reports nausea; Denies abdominal pain, constipation, cramping, diarrhea or vomiting Musculoskeletal Musculoskeletal: Denies arthralgias Integumentary/Breasts Skin/Breast: Denies rash Neurologic Neurologic: Denies paresthesias Physical Exam General General appearance: alert and in no apparent distress Head Head exam: atraumatic, normocephalic and normal inspection Eye Eye exam: Present normal appearance, PERRL and EOMI ENT ENT exam: Present mucous membranes moist and normal external ear exam Expanded ENT Exam TM/Canal exam: Bilateral TM: erythema and bulging Nose exam: Absent sinus tenderness Mouth exam: Present normal external inspection; Absent drooling Teeth exam: Present normal inspection Throat exam: Present tonsillar erythema, tonsillomegaly and tonsillar exudate Neck Neck exam: Present normal inspection, full ROM and trachea midline; Absent tenderness, meningismus or lymphadenopathy Chest Chest inspection: Present normal inspection and symmetric chest wall rise; Absent tenderness Respiratory Respiratory exam: Present normal lung sounds bilaterally; Absent respiratory distress, wheezes or stridor Cardiovascular Cardiovascular exam: Present regular rate and normal rhythm; Absent systolic murmur or diastolic murmur Abdominal Exam Abdominal exam: Present soft and normal bowel sounds; Absent distention, tenderness, guarding, rebound or rigidity Extremities Exam Extremities exam: Present normal inspection and normal capillary refill; Absent calf tenderness Back Exam Back exam: Present normal inspection and full ROM; Absent tenderness, CVA tenderness (R) or CVA tenderness (L) Neurological Exam Neurological exam: Present alert, oriented X3 and CN II-XII intact Psychiatric Psychiatric exam: Present normal affect and normal mood Skin Skin exam: Present warm, dry, intact and normal color Medical Decision Making Medical Records Medical records reviewed: No I reviewed the patient's medical records. Mark Inquiry Pt receiving controlled substance: No Lab Data Lab results reviewed: Yes I reviewed the patient's lab results.
[2023-11-09 09:45] LABS: UTC Strep Screen (Rapid) Positive (Negative)
[2023-11-09 10:08] VITALS: BP 128/86; PULSE 63; RESP 18; TEMP 36.8; O2SAT 97
== END 2023-11-09 10:08 | disposition home or self-care (01) ==
PROVIDERS: Emergency Provider Nurse Practitioner Family; PCP Family Medicine
DX: J02.0 Streptococcal pharyngitis (principal); R07.0 Pain in throat; R50.9 Fever, unspecified; R53.81 Other malaise; Z87.891 Personal history of nicotine dependence
CPT/HCPCS: 87880; 99212; 99214; G0463

== ENCOUNTER 2023-12-10 10:03 | Emergency (ER) | payer BC, SELFPAY ==
[2023-12-10 10:10] VITALS: BP 121/88; PULSE 62; RESP 18; TEMP 36.5; O2SAT 96; BMI 31.8
--- NOTE | 2023-12-10 10:29 | ED_ITS ---
Discharge Plan Disposition Patient Disposition: Home, Self-Care Condition: Good Referrals Follow up/Referrals: Chito Rose MD [Primary Care Provider] - See instructions Activity Restrictions/Add. Instructions Additional Instructions/Restrictions: *Monitor Temp, Over the counter Motrin or Tylenol as directed/as needed Tylenol every 4 hours and Motrin every 6 hours (as long as your family doctor has told you that you can take it) for fever or pain. and straight to ER if unable to lower temp less than 101.0 after medication given Make sure to drink plently of fluids *Sleep elevated *Humidifier/Vaporizer *Collect diarrhea sample and bring it back in, make sure to stop at registration and get your lab work registered Follow up IMMEDIATELY for new or worsening symptoms or no Noticeable improvement over the next 48-72 hours. 911 for difficulty breathing or swal lowing Clinical Impressions Clinical Impression: Viral syndrome Instructions Patient Instructions: DI for Viral Syndrome, Diarrhea [place]charge ED Provider[place] Ligia Meraz [facility] [place] General Stated complaint: headache, diarrhea Mode of Arrival: Ambulatory Source of Information: Patient and Parent(s) Limitations: No Limitations Time Seen by Provider: 12/10/23 10:29 Description of Symptoms (Recalled from Triage Doc. by RN): Pt's symptoms are diarrhea, BENTLEY, nausea, and no appetite, and fatigue. HEENT Symptoms (Recalled from RN notes): Yes Resp Symptoms (Recalled from RN notes): No Skin Symptoms (Recalled from RN notes): No MS Symptoms (Recalled from RN notes): No Functional Status (Recalled from RN notes): n/a History of Present Illness Provider Complaint: Patient states that he has been having diarrhea on and off for a week, nausea, headache States that he has been feeling bad on and off States that he wasnt sure if he may have the flu or not so he came in Related Data Allergies Allergy/AdvReac Type Severity Reaction Status Date / Time chlorpheniramine Allergy Unknown Verified 12/10/23 10:20 [From [facility]] codeine [From [facility]] Allergy Unknown Verified 12/10/23 10:20 dihydrocodeine Allergy Unknown Verified 12/10/23 10:20 [From [facility]] phenylephrine Allergy Unknown Verified 12/10/23 10:20 [From [facility]] pseudoephedrine Allergy Unknown Verified 12/10/23 10:20 [From [facility] ] azithromycin [From Zithromax] Allergy Verified 12/10/23 10:21 prednisone AdvReac Mild Agitated Verified 12/10/23 10:20 Worker's Comp Is this a Worker's Comp case?: No [facility] Disclaimer: The information contained in this section may have been updated after the patient was seen, as this information can be updated by other users. Social History Smoking Status: Former smoker tobacco type: cigarettes second hand exposure: Yes alcohol intake: never current occupational status: other Travel in the last 8 weeks: None ROS Obtained: Yes All systems reviewed & no additional complaints except as d ocumented and Yes Systems reviewed as appropriate & no additional complaints except as documented Constitutional Constitutional: Reports system reviewed and no additional complaints, except as documented, Reports as per HPI, Reports body ache, Denies chills, Reports fatigue and Denies fever(s) ENT Ears, Nose, Mouth, and Throat: Reports system reviewed and no additional complaints, except as documented and Reports as per HPI Cardiovascular Cardiovascular: Reports system reviewed and no additional complaints, except as documented and Reports as per HPI Respiratory Respiratory: Reports system reviewed and no additional complaints, except as documented and Reports as per HPI Gastrointestinal Gastrointestingal: Reports system reviewed and no additional complaints, except as documented and as per HPI Endocrine Endocrine: Reports fatigue Physical Exam General General appearance: alert and in no apparent distress ENT ENT exam: Present mucous membranes moist Respiratory Respiratory exam: Present normal lung sounds bilaterally; Absent respiratory distress or wheezes Cardiovascular Cardiovascular exam: Present regular rate, normal rhythm and normal heart sounds Abdominal Exam Abdominal exam: Present soft, distention and normal bowel sounds Neurological Exam Neurological exam: Present alert, oriented X3 and normal gait Medical Decision Making Mark Inquiry Pt receiving controlled substance: No Mark was queried for this patient: No Vital Signs: 12/10/23 10:10 Temperature 97.7 F Temperature Source Oral Pulse Rate [Right Radial] 62 Respiratory Rate 18 Blood Pressure [Right Arm] 121/88 Blood Pressure Mean [Right Arm] 99 Blood Pressure Source [Right Arm] Automatic Cuff Blood Pressure Position [Right Arm] Sitting 02 Sat by Pulse Oximetry 96 Oxygen Delivery Method Room Air Lab Data Lab results reviewed: Yes I reviewed the patient's lab results.
[2023-12-10 10:36] LABS: UTC Influenza A Antigen Negative (Negative); UTC Influenza B Antigen Negative (Negative)
[2023-12-10 10:50] VITALS: BP 139/86; PULSE 90; RESP 19; TEMP 36.6; O2SAT 100
[2023-12-10 11:24] LABS: Adenovirus F 40/41, stool Not Detected (NotDetected); Astrovirus Not Detected (NotDetected); Campylobacter Not Detected (NotDetected); Clostridium Difficile A/B, PCR Not Detected (NotDetected); Cryptosporidium Not Detected (NotDetected); Cyclospora Cayetanesis Not Detected (NotDetected); Entamoeba histolytica Not Detected (NotDetected); Enteroaggregative E coli Not Detected (NotDetected); Enterotoxigenic E coli Not Detected (NotDetected); Giardia lamblia Not Detected (NotDetected); Norovirus Not Detected (NotDetected); Plesimonas Shigalloides, PCR Not Detected (NotDetected); Rotavirus A Not Detected (NotDetected); Salmonella, PCR Not Detected (NotDetected); Sapovirus Not Detected (NotDetected); Shiga-like toxin E coli Not Detected (NotDetected); Shigella Enterovasive E coli Not Detected (NotDetected); Vibrio Cholerae Not Detected (NotDetected); Vibrio, PCR Not Detected (NotDetected); Yersinia Entercolitica, PCR Not Detected (NotDetected)
[2023-12-13 13:14] LABS: Enteropathogenic E coli Detected (NotDetected)
== END 2023-12-10 10:49 | disposition home or self-care (01) ==
PROVIDERS: Emergency Provider Nurse Practitioner; PCP Family Medicine
DX: A08.39 Other viral enteritis (principal); A04.0 Enteropathogenic Escherichia coli infection; R19.7 Diarrhea, unspecified; R11.0 Nausea; R51.9 Headache, unspecified; Z87.891 Personal history of nicotine dependence
CPT/HCPCS: 87507; 87804; 99212; 99213; G0463

== ENCOUNTER 2024-03-27 08:24 | Outpatient (CLI) | payer BC, SELFPAY ==
[2024-03-27 08:59] LABS: Benzodiazepines Screen,Urine Negative ng/ml (<200)
[2024-03-27 09:00] LABS: Amphetamine/Metha Screen,Urine Positive ng/ml (<1000)
[2024-03-27 09:01] LABS: Barbiturates Screen,Urine Negative ng/ml (<200); Cannabinoid Screen,Urine Positive ng/ml (<50)
[2024-03-27 09:02] LABS: Cocaine Screen,Urine Negative ng/ml (<300)
[2024-03-27 09:03] LABS: Methadone Screen,Urine Negative ng/ml (<300); Opiate Screen,Urine Negative ng/ml (<300)
[2024-03-27 09:04] LABS: Phencyclidine Screen,Urine Negative ng/ml (<25)
== END 2024-03-27 23:59 | disposition home or self-care (01) ==
LOC: LAB 08:24
PROVIDERS: PCP Family Medicine; Visit Provider Nurse Practitioner Psychiatric/Mental Health
DX: F90.9 Attention-deficit hyperactivity disorder, unspecified type (principal)
CPT/HCPCS: 36415; 80307

== ENCOUNTER 2024-07-06 17:10 | Emergency (ER) | payer BC, SELFPAY ==
--- NOTE | 2024-07-06 17:30 | ED_ITS ---
Discharge Plan Disposition Patient Disposition: Home, Self-Care Condition: Good Prescriptions Prescriptions: New polymyxin B sulf-trimethoprim 10,000 unit- 1 mg/mL drops 1 drp Eye-Left Q3H 7 Days Qty: 10 0RF Rx Instructions: while awake; do not exceed 6 doses in 24 hours ibuprofen [IBU] 800 mg tablet 800 mg PO Q8HP PRN (Reason: Moderate Pain) Qty: 30 0RF No Action clonidine HCl 0.1 mg tablet 0.1 mg PO DAILY Patient Comments: TAKE 1 TO 2 TABLET(S) BY MOUTH EVERY DAY AT BEDTIME FOR ANXIETY / SLEEP venlafaxine 75 mg capsule,extended release 24hr 75 mg PO DIRECTED Patient Comments: TAKE ONE CAPSULE BY MOUTH EVERY DAY IN THE MORNING dextroamphetamine-amphetamine 30 mg capsule,extended release 24hr 30 mg PO DAILY Patient Comments: TAKE ONE CAPSULE BY MOUTH EVERY DAY IN THE MORNING Referrals Follow up/Referrals: Chito Rose MD [Primary Care Provider] - See instructions Activity Restrictions/Add. Instructions Additional Instructions/Restrictions: Use the eye drops as directed. Follow up with your regular doctor. GO TO THE ER FOR ANY WORSENING SYMPTOMS OR CONCERNS Clinical Impressions Clinical Impression: Right cornea abrasion Instructions Patient Instructions: How to Instill Eye Drops, DI for Corneal Abrasion, Corneal Abrasion Print Language Print Language: Tamazight Discharge ED Provider: [facility] General Stated complaint: right eye swelling w/pain Time Seen by Provider: 07/06/24 17:30 History of Present Illness Provider Complaint: He states that since yesterday he has had right eye irritation and redness. He denies any injury, but he thinks that there was something in his eye at first. His tetanus immunization is up to date. He denies any vision changes. Related Data Home Medications ?Medication ?Instructions ?Recorded ?Confirmed clonidine HCl 0.1 mg tablet 0.1 mg PO DAILY 07/06/24 07/06/24 dextroamphetamine-amphetamine ER 30 mg PO DAILY 07/06/24 07/06/24 30 mg 24hr capsule,extend release venlafaxine 75 mg capsule,extended 75 mg PO DIRECTED 07/06/24 release 24 hr Previous Rx's ?Medication ?Instructions ?Recorded ibuprofen 800 mg tablet (IBU) 800 mg PO Q8HP PRN Moderate Pain 07/06/24 #30 tabs polymyxin B sulfate 10,000 1 drp Eye-Left Q3H 7 days #10 mL 07/06/24 unit-trimethoprim 1 mg/mL eye drops Allergies Allergy/AdvReac Type Severity Reaction Status Date / Time chlorpheniramine Allergy Unknown Verified 12/10/23 10:20 [From [facility]] codeine [From [facility]] Allergy Unknown Verified 12/10/23 10:20 dihydrocodeine Allergy Unknown Verified 12/10/23 10:20 [From [facility]] phenylephrine Allergy Unknown Verified 12/10/23 10:20 [From [facility]] pseudoephedrine Allergy Unknown Verified 12/10/23 10:20 [From [facility]] azithromycin [From Zithromax] Allergy Verified 12/10/23 10:21 prednisone AdvReac Mild Agitated Verified 12/10/23 10:20 PFSH PFS Disclaimer: The information contained in this section may have been updated after the patient was seen, as this information can be updated by other users. Social History Smoking Status: Former smoker tobacco type: cigarettes second hand exposure: Yes alcohol intake: never current occupational status: other Travel in the last 8 weeks: None ROS Obtained: Yes All systems reviewed & no additional complaints except as documented Constitutional Constitutional: Denies chills and Denies fever(s) Eyes Eyes: Reports as per HPI, Denies change in vision and Reports eye discharge ENT Ears, Nose, Mouth, and Throat: Denies dizziness, Denies otalgia and Denies sore throat Cardiovascular Cardiovascular: Denies chest pain Respiratory Respiratory: Denies shortness of breath, Denies chest congestion, Denies cough, Denies stridor and Denies wheezing Gastrointestinal Gastrointestingal: Denies nausea or vomiting Musculoskeletal Musculoskeletal: Reports system reviewed and no additional complaints, except as documented and Denies arthralgias Integumentary/Breasts Skin/Breast: Denies rash Neurologic Neurologic: Denies dizziness and Denies paresthesias Allergic/Immunologic Allergic/Immunologic: Denies wheezing Physical Exam General General appearance: alert and in no apparent distress Head Head exam: atraumatic, normocephalic and normal inspection Eye Eye exam: Present PERRL and EOMI Expanded Eye Exam Eyelids: left: normal inspection and right: erythema Pupils: Left: size (2), Right: size (2) and Bilateral: regular, round and reactive Sclera/Conjunctival: left: normal inspection and right: injection Visual acuity (R) = 20/: 25 Visual acuity (L) = 20/: 25 ENT ENT exam: Present normal exam, normal oropharynx, mucous membranes moist, TM's normal bilaterally and normal external ear exam Neck Neck exam: Present normal inspection, full ROM and trachea midline; Absent meningismus or lymphadenopathy Chest Chest inspection: Present normal inspection and symmetric chest wall rise; Absent tenderness Respiratory Respiratory exam: Present normal lung sounds bilaterally; Absent respiratory distress Cardiovascular Cardiovascular exam: Present regular rate and normal rhythm; Absent JVD Abdominal Exam Abdominal exam: Present soft and normal bowel sounds; Absent distention, tenderness or guarding Extremities Exam Extremities exam: Present normal inspection, full ROM and normal capillary refill; Absent calf tenderness Back Exam Back exam: Present normal inspection; Absent tenderness Neurological Exam Neurological exam: Present alert and oriented X3 Psychiatric Psychiatric exam: Present normal affect and normal mood Skin Skin exam: Present warm, dry, intact and normal color Lymphatic Lymphatic Findings: no adenopathy Medical Decision Making Medical Records Medical records reviewed: No I reviewed the patient's medical records. Screening: Per USPSTF and CDC recommendations, given the prevalence of disease in [facility], it is our hospital?s policy to screen for HIV and viral Hepatitis for all patients aged 18 and over and those with ongoing risk factors. Mark Inquiry Pt receiving controlled substance: No Procedures Risk/Benefits of Procedure(s) Were Explained: Yes Eye Exam/FB Removal Location: eye (R) Topical anesthetic used: tetracaine Fluorescein Stick(s) used: Yes Time Out performed: Yes Procedure performed under: direct visualization with magnification Foreign body: other (none) Evidence of corneal penetration: No Technique: irrigation Eye irrigated w/saline (#ccs): 25 Patient tolerated procedure: well and no complications Complications: other (He tolerated this well, no foreign body was noted. the upper lid was inverted to do make sure no foreign body was there. There was a small corneal abrasion noted at the 2:00 position in relation to the pupil )
[2024-07-06 17:32] VITALS: BP 130/89; PULSE 70; RESP 20; TEMP 36.8; O2SAT 98; BMI 30.1
[2024-07-06 18:46] VITALS: BP 130/89; PULSE 70; RESP 20; TEMP 36.8
[2024-07-06] MEDS: TETRACAINE 0.5% OPTH SOL 15ML OP (18:51)
[2024-07-06] MEDS: EYE WASH IRRIGATION SOLN 118ML BOTTLE 120 ML OP (18:51)
== END 2024-07-06 18:52 | disposition home or self-care (01) ==
PROVIDERS: Emergency Provider Nurse Practitioner Family; PCP Family Medicine
DX: S05.01XA Injury of conjunctiva and corneal abrasion without foreign body, right eye, initial encounter (principal); X58.XXXA Exposure to other specified factors, initial encounter
CPT/HCPCS: 99213; G0381

== ENCOUNTER 2025-02-03 19:33 | Emergency (ER) | payer BC, SELFPAY ==
--- NOTE | 2025-02-03 19:38 | ED_ITS ---
<Statement entered by Prasad Grossman MD - 02/03/25 23:09> I was consulted by the AILIN, and we discussed the complexity of the problems being addressed. I approved the treatment and management plan for this patient's care in the emergency department, thus performing a substantive portion of the medical decision making. Prasad Grossman MD, JAQUELIN, FACEP Discharge Plan Disposition Patient Disposition: Home, Self-Care Condition: Good Prescriptions Prescriptions: New pantoprazole [Protonix] 40 mg tablet,delayed release (DR/EC) 40 mg PO DAILY Qty: 30 0RF No Action clonidine HCl 0.1 mg tablet 0.1 mg PO DAILY Patient Comments: TAKE 1 TO 2 TABLET(S) BY MOUTH EVERY DAY AT BEDTIME FOR ANXIETY / SLEEP venlafaxine 75 mg capsule,extended release 24hr 75 mg PO DIRECTED Patient Comments: TAKE ONE CAPSULE BY MOUTH EVERY DAY IN THE MORNING dextroamphetamine-amphetamine 30 mg capsule,extended release 24hr 30 mg PO DAILY Patient Comments: TAKE ONE CAPSULE BY MOUTH EVERY DAY IN THE MORNING polymyxin B sulf-trimethoprim 10,000 unit- 1 mg/mL drops 1 drp Eye-Left Q3H 7 Days Qty: 10 0RF Rx Instructions: while awake; do not exceed 6 doses in 24 hours ibuprofen [IBU] 800 mg tablet 800 mg PO Q8HP PRN (Reason: Moderate Pain) Qty: 30 0RF Referrals Follow up/Referrals: Chito Rose MD [Primary Care Provider, Medical] - See instructions Dane Jc II, MD [Staff Physician, Gastroenterology] - See instructions Activity Restrictions/Add. Instructions Additional Instructions/Restrictions: I have started you on a proton pump inhibitor and have sent a prescription to your pharmacy. I am also referring you to gastroenterology. Please call in the morning to make your appointment. If you have persistent new or worsening signs or symptoms follow-up with your PCP return to the ER as needed. Clinical Impressions Clinical Impression: Gastritis Qualifiers: Gastritis type: unspecified gastritis Chronicity: acute Gastritis bleeding: p resence of bleeding unspecified Qualified Code(s): K29.00 - Acute gastritis without bleeding Instructions Patient Instructions: DI for Acute Abdominal Pain Print Language Print Language: Mongolian Discharge ED Provider: Prasad Grossman General Adult HPI <NEO Mayorga - Last Filed: 02/03/25 21:49> General Chief complaint: Abdominal Pain Stated complaint: Nausea,stomach pain Time Seen by Provider: 02/03/25 19:37 History of Present Illness HPI narrative: Patient presents for evaluation of epigastric abdominal pain. Patient states his pain began this morning about 30 minutes after having oatmeal for breakfast. It has been persistent all day and is not radiated. Patient has had nausea but no vomiting no diarrhea chest pain shortness of breath hemoptysis hematochezia melena hematemesis hematuria. He has never had any abdominal surgery does not drink smoke take any [id number] medications. He has had similar symptoms in the past but never this intense. Related Data Home Medications ?Medication ?Instructions ?Recorded ?Confirmed clonidine HCl 0.1 mg tablet 0.1 mg PO DAILY 07/06/24 1 09/05/23 dextroamphetamine-amphetamine ER 30 mg PO DAILY 07/06/24 30 mg 24hr capsule,extend release venlafaxine 75 mg capsule,extended 75 mg PO DIRECTE D 07/06/24 release 24 hr Previous Rx's ?Medication ?Instructions ?Recorded ibuprofen 800 mg tablet (IBU) 800 mg PO Q8HP PRN Moder ate Pain 07/06/24 #30 tabs polymyxin B sulfate 10,000 1 drp Eye-Left Q3H 7 days # 10 mL 07/06/24 unit-trimethoprim 1 mg/mL eye drops pantoprazole 40 mg tablet,delayed 40 mg PO DAILY #30 t abs 02/03/25 release (Protonix) Allergies Allergy/AdvReac Type Severity Reaction Status Date / Time chlorpheniramine (From Allergy Unknown Verified 12/10/23 10:20 [facility]) codeine (From [facility]) Allergy Unknown Verified 12/10/23 10:20 dihydrocodeine (From Allergy Unknown Verified 12/10/23 10:20 [facility]) phenylephrine (From Allergy Unknown Verified 12/10/23 10:20 [facility]) pseudoephedrine (From Allergy Unknown Verified 12/10/23 10:20 [facility]) azithromycin (From Zithromax) Allergy Verified 12/10/23 10:21 prednisone AdvReac Mild Agitated Verified 12/10/23 10:20 [facility] <NEO Mayorga - Last Filed: 02/03/25 21:49> [facility] Disclaimer: The information contained in this section may have been updated after the patient was seen, as this information can be updated by other users. Social History Smoking Status: Former smoker tobacco type: cigarettes second hand exposure: Yes alcohol intake: never current occupational status: other Travel in the last 8 weeks?: None Have you lived/traveled outside [place] in past 30 days?: No Contact w/someone who lives/traveled outside [place] past 30 days?: No Exposure to someone with infectious disease in past 14 days?: No Do you have a fever (greater than 100.4 F or 38 C)?: No Have you tested positive for COVID-19?: No Exposed to someone with COVID-19 in past 14 days?: No Do you have a sore throat?: No Do you have a cough?: No Do you have any weakness?: No Do you have any diarrhea?: No Are you experiencing any unusual bleeding?: No Do you have any muscle aches/pain?: No Do you have any abdominal pain?: No Are you experiencing loss of taste or smell?: No Other Medical History Have you received the Flu Vaccine for this season: No Have you received the Pneumonia Vaccine: No <NEO Mayorga - Last Filed: 02/03/25 21:49> ROS Obtained: Yes Systems reviewed as appropriate & no additional complaints except as documented Physical Exam <NEO Mayorga - Last Filed: 02/03/25 21:49> General General appearance: alert and in no apparent distress Respiratory Respiratory exam: Present normal lung sounds bilaterally Cardiovascular Cardiovascular exam: Present regular rate Neurological Exam Neurological exam: Present alert and oriented X3 Medical Decision Making <NEO Mayorga - Last Filed: 02/03/25 21:49> Medical Records Medical records reviewed: Yes I reviewed the patient's medical records. Screening: Per USPSTF and CDC recommendations, given the prevalence of disease in our region, it is our hospital?s policy to screen for HIV and viral Hepatitis for all patients aged 18 and over and those with ongoing risk factors. Mark Inquiry Pt receiving controlled substance: No Vital Signs: 02/03/25 19:46 02/03/25 20:00 02/03/25 20:43 Temperature 98 F Temperature Source Oral Pulse Rate 67 77 Pulse Rate [Radial] 76 Respiratory Rate 16 Blood Pressure 132/93 H 134/90 Blood Pressure [Right Arm] 141/86 H Blood Pressure Mean [Right Arm] 104 Blood Pressure Position Blood Pressure Position [Right Arm] Sitting 02 Sat by Pulse Oximetry 97 94 L 96 Oxygen Delivery Method Room Air 02/03/25 21:42 Temperature 98 F Temperature Source Oral Pulse Rate 70 Pulse Rate [Radial] Respiratory Rate 16 Blood Pressure 128/83 Blood Pressure [Right Arm] Blood Pressure Mean [Right Arm] Blood Pressure Position Sitting Blood Pressure Position [Right Arm] 02 Sat by Pulse Oximetry Oxygen Delivery Method Room Air Lab Data Lab results reviewed: Yes I reviewed the patient's lab results. Lab Results 02/03/25 19:45: WBC 11.4 H, RBC 5.14, Hgb 14.7, Hct 44.5, MCV 86.6, MCH 28.6, MCHC 33.0, RDW 12.8, Plt Count 275, MPV 9.3, Neut % (Auto) 67.7, Lymph % (Auto) 18.9, [place] % (Auto) 10.0 H, Eos % (Auto) 2.0, Baso % (Auto) 0.6, Neut # (Auto) 7.8, Lymph # (Auto) 2.2, [place] # (Auto) 1.1 H, Eos # (Auto) 0.2, Baso # (Auto) 0.1, Sodium 138, Potassium 4.0, Chloride 106, Carbon Dioxide 25, Anion Gap 11.0, BUN 24 H, Creatinine 0.80, Estimated Creat Clear 167, Estimated GFR 105, Est GFR ( Amer) 127, Glucose 121 H, Calcium 9.2, Total Bilirubin 0.4, AST 33, ALT 44, Alkaline Phosphatase 79, Total Protein 7.2, Albumin 4.4, Globulin 2.8, Albumin/Globulin Ratio 1.6, Lipase 46, Procalcitonin 0.066 02/03/25 19:45 02/03/25 19:45 Orders (Tests/Meds): ED MEDICATIONS Discontinued Medications Generic Name Dose Route Start Last Admin Trade Name Freq PRN Reason Stop Dose Admin Belladonna Alkaloids 60 ml 02/03/25 19:45 02/03/25 19:52 Belladonna Alkaloids 60 Ml Ml PO 02/03/25 19:46 60 ml ONCE ONE Administration Famotidine 20 mg 02/03/25 20:38 02/03/25 20:42 Famotidine 20mg/2ml Vial IV 02/03/25 20:39 20 mg ONCE ONE Administration Sodium Chloride 1,000 mls @ 999 mls/hr 02/03/25 19:45 02/03/25 19:52 Sod Chlor 0.9% 1000ml Bag IV 02/03/25 20:45 999 mls/hr .Q1H1M ONE Administration Iopamidol 75 ml 02/03/25 20:35 02/03/25 20:35 Iopamidol-370 (76%);100ml Bottle IV 02/03/25 20:36 75 ml ONCE ONE Administration Ketorolac Tromethamine 15 mg 02/03/25 19:45 02/03/25 19:51 Ketorolac 30mg/Ml Vial IV 02/03/25 19:46 15 mg ONCE ONE Administration Ondansetron HCl 4 mg 02/03/25 19:45 02/03/25 19:52 Ondansetron 4mg/2ml Vial IV 02/03/25 19:46 4 mg ONCE ONE Administration Sodium Chloride 10 ml 02/03/25 20:35 02/03/25 20:35 Sodium Chloride 0.9% 10ml Syr (Rad Only) IV 03/05/25 20:34 10 ml NEEDED PRN Administration Maintain IV Site Sodium Chloride 8 ml 02/03/25 20:38 Sodium Chloride 0.9% 10ml Vial IV 03/05/25 20:37 NEEDED PRN dilute pepcid ORDERS Category Date Time Status CT abdomen pelvis w con Stat Cat Scan 02/03/25 19:45 Completed POCUS Point of Care (ER Only) Stat Exams 02/03/25 19:45 Completed CBC w/Auto Diff [Complete Blood Count Auto Diff] Stat Lab 02/03/25 19:45 Completed CMP [Comprehensive Metabolic Panel] Stat Lab 02/03/25 19:45 Completed Lipase Stat Lab 02/03/25 19:45 Completed Procalcitonin Stat Lab 02/03/25 19:45 Completed Medical Decision Narrative: In summary patient is a 44-year-old male who presents to the emergency department for evaluation of epigastric abdominal pain. Patient is dynamically stable upon arrival, febrile. Physical exam is remarkable for clear breath sounds with no adventitious sounds or increased work of breathing, cardiovascular is S1-S2 regular rate and rhythm without murmurs gallops rubs or thrills no dependent edema noted. Abdominal examination reveals very tender in the epigastrium without rebound or guarding or rigidity. Patient does not have a positive Cuevas sign. Bowel sounds normal active.. Differential diagnosis includes ulcer versus GERD versus esophagitis versus pancreatitis versus constipation versus cholelithiasis versus cholecystitis etc. Initial workup will be conducted with hematologic labs POCUS CT scan abdomen pelvis. Initial interventions include crystalloid bolus Toradol Zofran GI cocktail. Initial workup reviewed by me and POCUS reveals a very thick-walled and contracted gallbladder without evidence of stone or biliary ductal dilatation, hematologic labs are nonactionable and my informal interpretation of his CT scan shows a thickened gastrum consistent with gastritis versus gastroduodenitis. Please see final read for formal interpretation. Upon repeat evaluation patient had improvement after IV Pepcid,. Given this I have started the patient on Protonix and sent the prescription to his pharmacy and I will for him to gastroenterology for evaluation for upper endoscopy. Patient given strict return precautions. <Prasad Grossman MD - Last Filed: 02/03/25 21:14> Vital Signs: 02/03/25 19:46 02/03/25 20:00 02/03/25 20:43 Temperature 98 F Temperature Source Oral Pulse Rate 67 77 Pulse Rate [Radial] 76 Respiratory Rate 16 Blood Pressure 132/93 H 134/90 Blood Pressure [Right Arm] 141/86 H Blood Pressure Mean [Right Arm] 104 Blood Pressure Position Blood Pressure Position [Right Arm] Sitting 02 Sat by Pulse Oximetry 97 94 L 96 Oxygen Delivery Method Room Air 02/03/25 21:42 Temperature 98 F Temperature Source Oral Pulse Rate 70 Pulse Rate [Radial] Respiratory Rate 16 Blood Pressure 128/83 Blood Pressure [Right Arm] Blood Pressure Mean [Right Arm] Blood Pressure Position Sitting Blood Pressure Position [Right Arm] 02 Sat by Pulse Oximetry Oxygen Delivery Method Room Air Lab Data Lab Results 02/03/25 19:45: WBC 11.4 H, RBC 5.14, Hgb 14.7, Hct 44.5, MCV 86.6, MCH 28.6, MCHC 33.0, RDW 12.8, Plt Count 275, MPV 9.3, Neut % (Auto) 67.7, Lymph % (Auto) 18.9, [place] % (Auto) 10.0 H, Eos % (Auto) 2.0, Baso % (Auto) 0.6, Neut # (Auto) 7.8, Lymph # (Auto) 2.2, [place] # (Auto) 1.1 H, Eos # (Auto) 0.2, Baso # (Auto) 0.1, Sodium 138, Potassium 4.0, Chloride 106, Carbon Dioxide 25, Anion Gap 11.0, BUN 24 H, Creatinine 0.80, Estimated Creat Clear 167, Estimated GFR 105, Est GFR ( Amer) 127, Glucose 121 H, Calcium 9.2, Total Bilirubin 0.4, AST 33, ALT 44, Alkaline Phosphatase 79, Total Protein 7.2, Albumin 4.4, Globulin 2.8, Albumin/Globulin Ratio 1.6, Lipase 46, Procalcitonin 0.066 Orders (Tests/Meds): ED MEDICATIONS Discontinued Medications Generic Name Dose Route Start Last Admin Trade Name Freq PRN Reason Stop Dose Admin Belladonna Alkaloids 60 ml 02/03/25 19:45 02/03/25 19:52 Belladonna Alkaloids 60 Ml Ml PO 02/03/25 19:46 60 ml ONCE ONE Administration Famotidine 20 mg 02/03/25 20:38 02/03/25 20:42 Famotidine 20mg/2ml Vial IV 02/03/25 20:39 20 mg ONCE ONE Administration Sodium Chloride 1,000 mls @ 999 mls/hr 02/03/25 19:45 02/03/25 19:52 Sod Chlor 0.9% 1000ml Bag IV 02/03/25 20:45 999 mls/hr .Q1H1M ONE Administration Iopamidol 75 ml 02/03/25 20:35 02/03/25 20:35 Iopamidol-370 (76%);100ml Bottle IV 02/03/25 20:36 75 ml ONCE ONE Administration Ketorolac Tromethamine 15 mg 02/03/25 19:45 02/03/25 19:51 Ketorolac 30mg/Ml Vial IV 02/03/25 19:46 15 mg ONCE ONE Administration Ondansetron HCl 4 mg 02/03/25 19:45 02/03/25 19:52 Ondansetron 4mg/2ml Vial IV 02/03/25 19:46 4 mg ONCE ONE Administration Sodium Chloride 10 ml 02/03/25 20:35 02/03/25 20:35 Sodium Chloride 0.9% 10ml Syr (Rad Only) IV 03/05/25 20:34 10 ml NEEDED PRN Administration Maintain IV Site Sodium Chloride 8 ml 02/03/25 20:38 Sodium Chloride 0.9% 10ml Vial IV 03/05/25 20:37 NEEDED PRN dilute pepcid ORDERS Category Date Time Status CT abdomen pelvis w con Stat Cat Scan 02/03/25 19:45 Completed POCUS Point of Care (ER Only) Stat Exams 02/03/25 19:45 Completed CBC w/Auto Diff [Complete Blood Count Auto Diff] Stat Lab 02/03/25 19:45 Completed CMP [Comprehensive Metabolic Panel] Stat Lab 02/03/25 19:45 Completed Lipase Stat Lab 02/03/25 19:45 Completed Procalcitonin Stat Lab 02/03/25 19:45 Completed Procedures <Prasad Grossman MD - Last Filed: 02/03/25 21:14> Miscellaneous Procedure Procedure Performed: Limited RUQ ultrasound Indication: Abdominal pain Identified structures: -Gallbladder -Gallbladder wall -Common bile duct -Liver Findings: Sonographic Cuevas sign negative no obvious gallstones or sludge there is possibly some scant possible pericholecystic fluid and anterior gallbladder wall is significantly thickened however the gallbladder is contracted into gallbladder wall was measured at 0.7 cm. Common bile duct visualized and within normal limits Impression: Abnormal limits right upper quadrant ultrasound with thickened anterior gallbladder wall but contracted GB, may represent chronic inflammatory change vs. thickening due to contracted GB, equivocal study Images were saved to permanent archive The study was technically adequate CPT 16143-14 This study was performed by me, and I personally interpreted all images/videos. Based on my clinical judgement, these images were adequate and did not necessitate further imaging. Critical Care <NEO Mayorga - Last Filed: 02/03/25 21:49> Critical Care Time Critical Care Time: No
--- NOTE | 2025-02-03 19:45 | CT_ITS ---
PROCEDURE INFORMATION: Exam: CT Abdomen And Pelvis With Contrast Exam date and time: 02/03/2025 8:29 PM Age: 44 years old Clinical indication: Abdominal pain; Epigastric; Additional info: Epigastric abdominal pain TECHNIQUE: Imaging protocol: Computed tomography of the abdomen and pelvis with contrast. Radiation optimization: All CT scans at this facility use at least one of these dose optimization techniques: automated exposure control; mA and/or kV adjustment per patient size (includes targeted exams where dose is matched to clinical indication); or iterative reconstruction. Contrast material: ISOVUE; Contrast volume: 75 ml; Contrast route: IV; COMPARISON: CR XR HIP LT 2-3V W/PELVIS 09/09/2020 3:54 PM FINDINGS: Liver: Normal. No mass. Gallbladder and biliary ducts: Normal. No calcified stones. No ductal dilation. Pancreas: Normal. No ductal dilation. Spleen: Normal. No splenomegaly. Adrenal glands: Normal. No mass. Kidneys and ureters: Normal. No hydronephrosis. Stomach and bowel: Concentric wall thickening of the gastric antrum and diffuse mucosal enhancement throughout the stomach, compatible with gastritis. Bowel loops are normal in caliber. No evidence of bowel obstruction. Appendix: No evidence of appendicitis. Intraperitoneal space: Unremarkable. No free air. No significant fluid collection. Vasculature: Unremarkable. No abdominal aortic aneurysm. Lymph nodes: Unremarkable. No enlarged lymph nodes. Urinary bladder: Unremarkable as visualized. Reproductive: Unremarkable as visualized. Bones/joints: Orthopedic hardware produces fusion of the lumbosacral junction. Bones are otherwise unremarkable. Soft tissues: Unremarkable. IMPRESSION: Findings suggestive of gastritis
[2025-02-03 19:46] VITALS: BP 141/86; PULSE 76; RESP 16; TEMP 36.6; O2SAT 97; BMI 31.7
--- OUTSIDE RECORDS SUMMARY | 2025-02-03 19:50 | XMS_ITS | Data Portability ---
Author Organization [facility] Address [address] [place] [address] Care Team Providers Care Enchilada Maker Name Role Phone MINI CHO Primary Care Provider LEONARDO HERNANDEZ Metal Bed Assembler [phone] Assessment Encounter Date Assessment Date Assessment LastModified by Organization Details LastModified Time 10/23/2023 10/23/2023 he is doing very well good tolerance of upgraded activities [place] [id number] Not available 10/23/2023 09:20:55 10/25/2023 10/25/2023 he is doing very well good tolerance of upgraded activities [place] [address] Not available 10/25/2023 08:54:07 10/29/2023 10/29/2023 he is doing very well good tolerance of upgraded activities [place] [address] Not available 10/29/2023 09:09:33 10/31/2023 10/31/2023 he is doing very well good tolerance of upgraded activities he will now go to work conditioning at [place] [id number] Not available 10/31/2023 14:04:22 10/31/2023 10/31/2023 5 weeks s/p medial lateral epicondyle debridement with ulnar nerve transposition. Doing exceptionally well with no sign of numbness or tingling, continue light use of the hand, continue stretching exercises, follow-up 4 weeks for repeat exam, if he is completely symptom-free we can start to phase him in to a work conditioning program [email or web address] Not available 10/31/2023 12:54:40 Plan of Treatment Reminders Order Date Submit Date Provider Last Modified By Organization Details Last Modified Time Details Appointments None record ed. Lab None record ed. Referral None record ed. Procedures None record ed. Surgeries None record ed. Imaging None record ed. Medication Orders None record ed. Patient TargetsNo targets recorded. Patient Instructions Encounter Date Encounter Id Patient Instructions Last Modified By Organization Details Last Modified Time 10/23/2023 [id number] Therapy 1-2 time s per week for 3-4 weeks to regain full ROM and strength. ST. Wrist/elbow AROM/PROM WFL within 2 weeks 2. Begin towel inspector/pinch/wrist strengthening progression within 3 weeks 3. Regain forceful grasp for all functional activities within 4-6 weeks Not available 10/23/2023 09:20:55 10/25/2023 [id number] Therapy 1-2 time s per week for 3-4 weeks to regain full ROM and strength. ST. Wrist/elbow AROM/PROM WFL within 2 weeks 2. Begin towel inspector/pinch/wrist strengthening progression within 3 weeks 3. Regain forceful grasp for all functional activities within 4-6 weeks Not available 10/25/2023 08:54:07 10/29/2023 [id number] Therapy 1-2 time s per week for 3-4 weeks to regain full ROM and strength. ST. Wrist/elbow AROM/PROM WFL within 2 weeks 2. Begin towel inspector/pinch/wrist strengthening progression within 3 weeks 3. Regain forceful grasp for all functional activities within 4-6 weeks Not available 10/29/2023 09:09:33 10/31/2023 [id number] Therapy 1-2 time s per week for 3-4 weeks to regain full ROM and strength. ST. Wrist/elbow AROM/PROM WFL within 2 weeks 2. Begin towel inspector/pinch/wrist strengthening progression within 3 weeks 3. Regain forceful grasp for all functional activities within 4-6 weeks Not available 10/31/2023 13:29:28 Reason for Referral None Reported. Problems No Known Problems Procedures Surgical History Date Name Laterality Status Provider Name and Address Organization Details Recorded Time OT Therapeutic Exercise completed JOSEPH GREGORY JR, OTR/L, CHT [address] [place], [address], [facility] 10/31/2023 13:29:27 4 PT Hot/Cold Pack completed JOSEPH GREGORY JR, OTR/L, CHT [address] [place], [address], [facility] 10/31/2023 13:29:27 4 OT Therapeutic Exercise completed JOSEPH GREGORY JR, OTR/L, CHT [address] [place], [address], [facility] 10/29/2023 09:18:57 4 PT Hot/Cold Pack completed JOSEPH GREGORY JR, OTR/L, CHT [address] [place], [address], [facility] 10/29/2023 09:09:33 4 OT Therapeutic Exercise completed JOSEPH GREGORY JR, OTR/L, CHT [address] [place], [address], [facility] 10/25/2023 08:54:07 4 PT Hot/Cold Pack completed JOSEPH GREGORY JR, OTR/L, CHT [address] [place], [address], [facility] 10/25/2023 08:54:07 4 OT Therapeutic Exercise completed JOSEPH GREGORY JR, OTR/L, CHT [address] [place], [address], [facility] 10/23/2023 10:14:05 4 PT Hot/Cold Pack completed JOSEPH GREGORY JR, OTR/L, CHT [address] [place], [address], [facility] 10/23/2023 09:20:55 4 OT Therapeutic Exercise completed JOSEPH GREGORY JR, OTR/L, CHT [address] [place], [address], [facility] 10/17/2023 10:30:18 4 PT Hot/Cold Pack completed JOSEPH GREGORY JR, OTR/L, CHT [address] [place], [address], [facility] 10/17/2023 10:02:05 4 OT Therapeutic Exercise completed JOSEPH GREGORY JR, OTR/L, CHT [address] [place], [address], [facility] 10/15/2023 09:32:01 4 PT Hot/Cold Pack completed JOSEPH GREGORY JR, OTR/L, CHT [address] [place], [address], [facility] 10/15/2023 09:32:01 4 OT Therapeutic Exercise completed JOSEPH GREGORY JR, OTR/L, CHT [address] [place], [address], [facility] 10/11/2023 10:10:46 4 PT Hot/Cold Pack completed JOSEPH GREGORY JR, OTR/L, CHT [address] [place], [address], [facility] 10/11/2023 09:09:15 4 OT Therapeutic Exercise completed JOSEPH GREGORY JR, OTR/L, CHT [address] [place], [address], [facility] 10/09/2023 09:36:31 4 OT Manual Therapy completed JOSEPH GREGORY JR, OTR/L, CHT [address] [place], [address], [facility] 10/09/2023 09:25:10 4 PT Hot/Cold Pack completed JOSEPH GREGORY JR, OTR/L, CHT [address] [place], [address], [facility] 10/09/2023 09:25:10 4 OT Therapeutic Exercise completed JOSEPH GREGORY JR, OTR/L, CHT [address] [place], [address], [facility] 10/02/2023 10:24:48 4 OT Manual Therapy completed JOSEPH GREGORY JR, OTR/L, CHT [address] [place], [address], [facility] 10/02/2023 10:24:48 4 PT Hot/Cold Pack completed JOSEPH GREGORY JR, OTR/L, CHT [address] [place], [address], [facility] 10/02/2023 10:24:48 4 OT Therapeutic Exercise completed JOSEPH GREGORY JR, OTR/L, CHT [address] [place], [address], [facility] 09/27/2023 15:40:41 4 OT Manual Therapy completed JOSEPH GREGORY JR, OTR/L, CHT [address] [place], [address], [facility] 09/27/2023 15:40:37 4 PT Hot/Cold Pack completed JOSEPH GREGORY JR, OTR/L, CHT [address] [place], [address], [facility] 09/27/2023 14:31:25 4 OT Evaluation - Moderate complexity completed JOSEPH GREGORY JR, OTR/L, CHT [address] [place], [address], [facility] 09/24/2023 09:00:28 4 OT Therapeutic Exercise completed JOSEPH GREGORY JR, OTR/L, CHT [address] [place], [address], [facility] 09/24/2023 10:40:54 4 PT Hot/Cold Pack completed JOSEPH GREGORY JR, OTR/L, CHT [address] [place], [address], [facility] 09/24/2023 10:40:56 4 Op Note completed LIONEL ADAN MD [address] [place], [address], [facility] 09/20/2023 14:14:19 3 Orthotic, EWHO, Static Custom completed JOSEPH GREGORY JR, OTR/L, CHT [address] [place], [address], [facility] 06/27/2023 13:52:27 Imaging Results None recorded. Procedure Notes None recorded. Medical Equipment None Reported. Allergies Allergen ID Allergen Name Allergen Category Reaction Reaction Severity Criticality Documentation Date Start Date Code Code System Note Provider Name and Address Organization Details Recorded Time [id number] azithromy [facility]rish[facility] medicatio n Not available Not available Not available 06/27/2023 63523 Rx[facility] 13:17[facility]23 Medications Name Sig Start Date Stop Date Status Note LastModified by Organization Details LastModified Time hydrocodone 10 mg-acetamin ophen 325 mg tablet TAKE 1/2 - 1 TABLET EVERY 4-6 HOURS NEEDED FOR SEVERE POST SURGICAL PAIN 2023 active per patient, not taking anymore 10/03/19 24 Not Available Not Available Not Available meloxicam 7.5 mg tablet TAKE 1 TABLET PO DAILY WITH FOOD REGARDLES S OF PAIN FOR 1 WEEK, THEN ONLY NEEDED FOR PAIN RELIEF THEREAFTE R 2023 active Not Available Not Available Not Avai lable gabapentin 100 mg capsule TAKE 1 CAPSULE EVERY NIGHT BEFORE BED FOR 1 WEEK 2023 active per patient not taking anymore 10/03/19 24 Not Available Not Available Not Available Vitals Date Recorded Body height Body mass index (BMI) Body weight Provider Name and Address Organization Details Last Updated DateTime 10/31/2023 177.8 cm 30.6 kg/m2 [address]85.[address] [facility] 10/31/2023 12:45:08 Social History None recorded. Functional Status Question Answer Note LastModified by Organization D etails LastModified Time What is your level of alcohol consumption? None [email or web address] Information not available 06/27/2023 Mental Status None recorded. Family History Nothing Reported. Medical History No medical history recorded. 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 Lateral ep icondylitis of right humerus 6540427753 52464 M77.11 [id number] LIONEL ADAN MD SURGERY SCHEDULE [address] [place] [address] 09/20/2023 10:27:32 09/20/2023 10:30:56 [id number] JOSEPH GREGORY JR, OTR/L, CHT PHYSICAL THERAPY / HAND TH[facility]APY [facility] [address] [place] [address] 09/24/2023 09:23:31 09/25/2023 16:36:10 Lateral epicondylitis of right humerus 0988947839 54482 M77.11 Medial epi condylitis of right elbow joint 2787992797 61749 M77.01 Ulnar nerv e entrapment at elbow 348260552 G56.21 [id number] JOSEPH GREGORY JR, OTR/L, CHT PHYSICAL THERAPY / [facility]AP[facility] [address] [place] [address] 09/27/2023 14:28:43 09/28/2023 04:06:49 Lateral epicondylitis of right humerus 8117637019 23665 M77.11 Medial epi condylitis of right elbow joint 1779028153 33620 M77.01 Ulnar nerv e entrapment at elbow 308162816 G56.21 [id number] LIONEL ADAN MD [facility] [address] [place] [address] 10/03/2023 12:07:48 10/03/2023 12:38:42 Medial epicondylitis of right elbow joint 3155818732 78120 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 Lateral ep icondylitis of right humerus 8005881921 79706 M77.11 [id number] JOSEPH GREGORY JR, OTR/L, CHT PHYSICAL THERAPY / HAND TH[facility]APY [facility] [address] [place] [address] 10/02/2023 10:07:55 10/03/2023 04:40:55 Lateral epicondylitis of right humerus 9146419025 10863 M77.11 Medial epi condylitis of right elbow joint 3875065507 53012 M77.01 Ulnar nerv e entrapment at elbow 624290778 G56.21 [id number] JOSEPH GREGORY JR, OTR/L, CHT PHYSICAL THERAPY / [facility]APY [facility] [address] [place] [address] 10/09/2023 09:02:04 10/10/2023 04:56:56 Lateral epicondylitis of right humerus 1692926034 88895 M77.11 Medial epi condylitis of right elbow joint 7220231289 68815 M77.01 Ulnar nerv e entrapment at elbow 547060358 G56.21 [id number] JOSEPH GREGORY JR, OTR/L, CHT PHYSICAL THERAPY / [facility] [address] [place] [address] 10/11/2023 08:51:46 10/12/2023 05:05:00 Lateral epicondylitis of right humerus 8008440791 37615 M77.11 Medial epi condylitis of right elbow joint 3681832089 66998 M77.01 Ulnar nerv e entrapment at elbow 125471515 G56.21 [id number] JOSEPH GREGORY JR, OTR/L, CHT PHYSICAL THERAPY / [facility]APY [facility] [address] [place] [address] 10/15/2023 09:14:49 10/16/2023 04:33:44 Lateral epicondylitis of right humerus 7051059354 41168 M77.11 Medial epi condylitis of right elbow joint 4088375076 74465 M77.01 Ulnar nerv e entrapment at elbow 558423217 G56.21 [id number] JOSEPH GREGORY JR, OTR/L, CHT PHYSICAL THERAPY / [facility]APY [facility] [address] [place] [address] 10/17/2023 09:56:50 10/18/2023 04:25:31 Lateral epicondylitis of right humerus 7531330189 49586 M77.11 Medial epi condylitis of right elbow joint 1227035011 44734 M77.01 Ulnar nerv e entrapment at elbow 790582104 G56.21 [id number] JOSEPH GREGORY JR, OTR/L, CHT PHYSICAL THERAPY / [facility]APY [facility] [address] [place] [address] 10/23/2023 08:49:14 10/24/2023 11:20:54 Lateral epicondylitis of right humerus 9157833956 12392 M77.11 Medial epi condylitis of right elbow joint 9545076888 35751 M77.01 Ulnar nerv e entrapment at elbow 002348233 G56.21 [id number] JOSEPH GREGORY JR, OTR/L, CHT PHYSICAL THERAPY / HAND [facility]APY [facility] [address] [place] [address] 10/25/2023 08:45:14 10/26/2023 05:00:23 Lateral epicondylitis of right humerus 1640314716 02095 M77.11 Medial epi condylitis of right elbow joint 3960885687 01019 M77.01 Ulnar nerv e entrapment at elbow 653389851 G56.21 [id number] LIONEL ADAN MD [facility] [address] [place] [address] 10/31/2023 12:40:23 10/31/2023 13:02:37 Medial epicondylitis of right elbow joint 4293226296 16068 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 Lateral ep icondylitis of right humerus 8789346540 80013 M77.11 Postoperative care 40783 9007 Z48.89 5 weeks s/p medial lateral epicondyle debridemen t with ulnar nerve transposit ion. He continues to heal well. Patient will begin physical therapy. F/U PRN. [id number] JOSEPH GREGORY JR, OTR/L, CHT PHYSICAL THERAPY / HAND [facility]APY [facility] [address] [place] [address] 10/29/2023 08:58:33 10/30/2023 04:46:30 Lateral epicondylitis of right humerus 1584680873 17240 M77.11 Medial epi condylitis of right elbow joint 6183097756 07707 M77.01 Ulnar nerv e entrapment at elbow 246656004 G56.21 [id number] JOSEPH GREGORY JR, OTR/L, CHT PHYSICAL THERAPY / [facility]APY [facility] [address] [place] [address] 10/31/2023 12:40:43 11/01/2023 04:52:10 Lateral epicondylitis of right humerus 4972605694 74287 M77.11 Medial epi condylitis of right elbow joint 6232290089 40476 M77.01 Ulnar nerv e entrapment at elbow 744239512 G56.21 Health Concerns Section Related Observation LastModified by Organization Detai ls LastModified Time None Recorded Concern Status LastModified by Organization Details LastModified Time None Recorded Advance Directives Directive None Recorded Payers Insurance Date Sequence Insurance Name Policy Number Policy Velasco Covered Member ID Velasco Member ID Guarantor Name 11/01/2023 [employer] Notes Date Note Type Note Provider Name and Address Organization Details Recorded Time 4 text/html PT Functional and ADL AssessmentReported bystaff.Pushingcannot perform Pullingcannot perform Reachingcannot perform Graspingperforms with deficit or compensation Liftingcannot perform Carryingcannot perform 09-20-2023 LATERAL EPICONDYLE DEBRIDEMENT; RIGHT MEDIAL EPICONDYLE DEBRIDEMENT; R SQUNT, *Performed by Lionel Adan MDThe patient will begin gentle range of motion exercises and nerve glides 3-5 days postoperatively. no use of right hand for ADL's JOSEPH GREGORY JR, OTR/L, CHT [address] [place], [address], [facility] 10/23/2023 10:14:19 4 text/html PT Functional and ADL AssessmentReported bystaff.Pushingcannot perform Pullingcannot perform Reachingcannot perform Graspingperforms with deficit or compensation Liftingcannot perform Carryingcannot perform 09-20-2023 LATERAL EPICONDYLE DEBRIDEMENT; RIGHT MEDIAL EPICONDYLE DEBRIDEMENT; R SQUNT, *Performed by Lionel Adan MDThe patient will begin gentle range of motion exercises and nerve glides 3-5 days postoperatively. no use of right hand for ADL's JOSEPH GREGORY JR, OTR/L, CHT [address] [place], [address], [facility] 10/25/2023 09:32:52 4 text/html PT Functional and ADL AssessmentReported bystaff.Pushingcannot perform Pullingcannot perform Reachingcannot perform Graspingperforms with deficit or compensation Liftingcannot perform Carryingcannot perform 09-20-2023 LATERAL EPICONDYLE DEBRIDEMENT; RIGHT MEDIAL EPICONDYLE DEBRIDEMENT; R SQUNT, *Performed by Lionel Adan MDThe patient will begin gentle range of motion exercises and nerve glides 3-5 days postoperatively. no use of right hand for ADL's JOSEPH GREGORY JR, OTR/L, CHT [address] [place], [address], [facility] 10/29/2023 09:53:00 4 text/html POST OP GLOBAL VISITDATE OF SURGERY: 09/20/2023TIME POST SURGERY:10-14 DAYS 2 WKS 6 WKS 12WKS OTHER: 5 wksSURGERY:Right lateral condyle debridementRight medial epicondyle debridementRight subcutaneous ulnar nerve transpositionINTERVAL HISTORY: PREOP SYMPTOMSBETTER PAIN LEVEL (VAS)3/10 OVERALL ASSESSMENTIMPROVING NEW SYMPTOMS OR QUESTIONS: Mr. Smith is here for a post op visit. Still having some tenderness, but overall improving. OTHER RECENT SURGERIES: n/a EMPLOYMENT STATUS: w.c. off work due to surgery LIONEL ADAN MD [address] [place], [address], [facility] 10/31/2023 12:58:19 4 text/html PT Functional and ADL AssessmentReported bystaff.Pushingcannot perform Pullingcannot perform Reachingcannot perform Graspingperforms with deficit or compensation Liftingcannot perform Carryingcannot perform 09-20-2023 LATERAL EPICONDYLE DEBRIDEMENT; RIGHT MEDIAL EPICONDYLE DEBRIDEMENT; R SQUNT, *Performed by Lionel Adan MDThe patient will begin gentle range of motion exercises and nerve glides 3-5 days postoperatively. no use of right hand for ADL's JOSEPH GREGORY JR, OTR/L, CHT [address] [place], [address], [facility] 10/31/2023 14:04:36
[2025-02-03] MEDS: KETOROLAC 30MG/ML VIAL 15 MG IV (19:51)
[2025-02-03] MEDS: 0.9 % SODIUM CHLORIDE 1000ML 1,000 ML 999 ML IV (19:52)
[2025-02-03] MEDS: BELLADONNA ALKALOIDS 60 ML ML PO (19:52)
[2025-02-03] MEDS: ONDANSETRON 4MG/2ML VIAL 4 MG IV (19:52)
--- NOTE | 2025-02-03 19:56 | ECG_ITS ---
APPROVED REPORT Exam: Resting ECG HR:70 bpm ECG Measurements Heart Rate 70 AXES IL 157 P 76 QRSd 89 QRS 95 QT 361 T 91 QTc 381 Conclusion SINUS RHYTHM BORDERLINE RIGHT AXIS DEVIATION [QRS AXIS > 90] BORDERLINE ECG UNCONFIRMED REPORT Electronically signed by : Davis Grossman, 02/03/2025 23:14:12
[2025-02-03 19:57] LABS: Basophils # 0.1 K/mm3 (0-0.2); Basophils % 0.6 % (0.1-2.0); Eosinophils # 0.2 Kmm3 (0.0-0.4); Hematocrit 44.5 % (42.0-52.0); Hemoglobin 14.7 g/dL (14.1-18.0); Immature Granulocytes # 0.09 10^3uL; Immature Granulocytes % 0.8 %; Lymphocytes # 2.2 K/mm3 (0.7-4.5); Lymphocytes % 18.9 % (10-50); Mean Corpuscular Hemoglobin 28.6 pg (27.0-31.2); Mean Corpuscular Volume 86.6 fl (80-94); Mean Platelet Volume 9.3 fl (7.4-10.4); Monocytes # 1.1 K/mm3 (0.1-1.0); Neutrophils # 7.8 K/mm3 (1.8-7.8); Neutrophils % 67.7 % (37.0-80.0); Nucleated Red Blood Cells # 0 10^3/uL; Nucleated Red Blood Cells % 0 %; Platelet Count 275 K/mm3 (142-424); Red Blood Count 5.14 M/mm3 (4.60-6.20); Red Cell Distribution Width 12.8 % (11.5-17.5); Red Cell Distribution Width-SD 39.9 fL; White Blood Count 11.4 K/mm3 (4.8-10.8)
[2025-02-03 20:00] VITALS: BP 132/93; PULSE 67; O2SAT 94
[2025-02-03 20:07] LABS: Albumin Level 4.4 g/dl (3.5-5.0); Chloride 106 mmol/L (98-107); Sodium 138 mmol/L (136-145)
[2025-02-03 20:09] LABS: Alanine Aminotransferase 44 U/L (12-78); Aspartate Amino Transferase 33 U/L (17-59); Blood Urea Nitrogen 24 mg/dl (9-20); Creatinine Clearance Estimated 167 mL/min (50-200); Estimated Glomerular Filt Rate 105 ml/min (>60); GFR (African American) 127 ML/MIN (>60)
[2025-02-03 20:10] LABS: Albumin/Globulin Ratio 1.6 (1.1-1.8); Alkaline Phosphatase 79 U/L (38-126); Bilirubin,Total 0.4 mg/dl (0.2-1.3); Calcium 9.2 mg/dl (8.4-10.2); Carbon Dioxide 25 mmol/L (22.0-30.0); Globulin 2.8 g/dL (1.3-3.2); Glucose 121 mg/dl (74-100); Lipase 46 U/L (23-300); Total Protein,Serum 7.2 g/dl (6.3-8.2)
--- NOTE | 2025-02-03 20:31 | PC.NURSE ---
pt out of the room for testing.
--- NOTE | 2025-02-03 20:32 | PC.NURSE ---
pt brought back to assigned room from radiology without incident.
[2025-02-03] MEDS: IOPAMIDOL-370 (76%);100ML BOTTLE 75 ML IV (20:35)
[2025-02-03] MEDS: SODIUM CHLORIDE 0.9% 10ML SYR (RAD ONLY) 10 ML IV (20:35)
[2025-02-03 20:39] LABS: Procalcitonin 0.066 ng/mL (0.0-2.0)
[2025-02-03] MEDS: FAMOTIDINE 20MG/2ML VIAL 20 MG IV (20:42)
[2025-02-03 20:43] VITALS: BP 134/90; PULSE 77; O2SAT 96
[2025-02-03 21:42] VITALS: BP 128/83; PULSE 70; RESP 16; TEMP 36.6; O2SAT 96
== END 2025-02-03 21:44 | disposition home or self-care (01) ==
PROVIDERS: Physician Assistant; Emergency Provider Student in an Organized Health Care Education/Training Program; PCP Family Medicine
DX: K29.00 Acute gastritis without bleeding (principal); Z87.891 Personal history of nicotine dependence
CPT/HCPCS: 74177; 80053; 83690; 84145; 85025; 93005; 96361; 96374; 96375; 99285; J1885; J2405; J7030; Q9967

== ENCOUNTER 2025-02-07 09:24 | Observation (INO) | payer BC, SELFPAY ==
[2025-02-07] VITALS (13 sets, daily range): BP systolic 107–125; BP diastolic 65–88; PULSE 77–110; RESP 15–18; TEMP 37–37.6; O2SAT 94–99; BMI 31.2
--- OUTSIDE RECORDS SUMMARY | 2025-02-07 09:35 | XMS_ITS | Clinical Summary ---
Author Organization [facility] Address [address] [place] [phone] Phone [email or web address] Care Team Providers Care Physical Metallurgist Name Role Phone Lionel Crocker MD Primary Care Provider [phone] Allergies Active Allergy Reactions Criticality Noted Date Comments Amoxicillin 12/10/2017 Azithromycin Rash Low 12/06/2020 Chlorpheniramine 12/10/2017 Codeine 12/10/2017 Dihydrocodeine 12/10/2017 Phenylephrine 12/10/2017 Pseudoephedrine 12/10/2017 Medications topiramate (TOPAMAX) 100 MG tablet Take 100 mg by mouth 2 (two) times a day. Active methocarbamol (ROBAXIN) 750 MG tablet Take 750 mg by mouth every night. 1 Active HYDROcodone-jhonatan taminophen (LORCET PLUS) 10-325 MG per tablet TAKE ONE TABLET BY MOUTH EVERY 8 HOURS NEEDED FOR SEVERE pain MAY CAUSE DROWSINESS 1 Active famotidine (PEPCID) 10 MG tablet Take by mouth. Activ e Active Problems No known active problems Social History Tobacco Use Types Packs/Day Years Used Date Smoking Tobacco: Every Day E-Cigarettes Smokeless Tobacco: Never Tobacco Cessation:Ready to Q uit: Not Asked; Counseling Given: Not Answered Alcohol Use Standard Drinks/Week Comments No 0 (1 standard drink = 0.6 oz pur e alcohol) Intimate Partner Violence Answer Date R ecorded Insults You Not on file 12/15/2020 Threatens You Not on file 12/15/2020 Screams at You Not on file 12/15/2020 Physically Hurt Not on file 12/15/2020 Intimate Partner Violence Score Not on file 12/15/2020 Alcohol Use Answer Date Recorded Alcohol Use Status No 04/26/2023 Depression Answer Date Recorded PHQ Total Score 0 04/26/2023 Stress Answer Date Recorded Stress in your Life Not on file 07/07/2024 Dealing with Stress 3 07/07/2024 Sex and Gender Information Value Date Recorded Sex Assigned at Not on file Legal Sex Male 12:16 PM CDT Gender Identity Not on file Sexual Orientation Not on file Last Filed Vital Signs Vital Sign [place] Time Taken Comments Blood Pressure 130/80 06/03/2024 9:26 AM EDT Pulse 90 06/03/2024 9:26 AM EDT Temperature 36.2 C (97.2 F) 06/03/2024 9:26 AM EDT Respiratory Rate 16 06/03/2024 9:26 AM EDT Oxygen Saturation 95% 12/21/2023 11:59 AM EDT Inhaled Oxygen Concentration - - Weight 92.1 kg (203 lb) 06/03/2024 9:26 AM EDT Height 177.8 cm (5' 10 ) 06/03/2024 9:26 AM EDT Body Mass Index 29.13 06/03/2024 9:26 AM EDT Plan of Treatment Health Maintenance Due Date Last Done Comments Dental Cleaning/Exam 1980 HIV Screening 1980 Hepatitis C Screening 1980 Annual Preventive Exam 1998 Hep B Infection Screening - Triple Screen 1998 Hepatitis B Immunization (1 of 3 - 19+ 3-dose series) 1999 Pneumococcal: Ped (0 to 5 Yrs) and At-Risk Member (6 to 64 Yrs) (1 of 2 - PCV) 1999 Covid-19 Immunization (3 - season) 2024 12/30/2020, 12/02/2020 Influenza Immunization (Season Ended) 2025 06/28/2015 Tetanus Diphtheria and Pertussis Immunization (6 - Td or Tdap) 11/09/2027 11/08/2017, 12/18/1995, 10/29/1985, Additional history exists Polio Immunization Completed 10/29/1985, 0 12/11/1984, 09/11/1984, Additional history exists HIB Immunization Aged Out No longer e ligible based on patient's age to complete this topic HPV Immunization Aged Out No longer e ligible based on patient's age to complete this topic Hepatitis A Immunization Aged Out No longer eligible based on patient's age to complete this topic Insurance [place] [id number] ANTHEM IN COPAY 5 OPT OUT NO COPAY NB Care Teams Physical Metallurgist Relationship Specialty Start Date End Date Lionel Crocker MD [address] [place] [address] VANDANA JOSE [phone] PCP - General Camp Director 06/04/20
--- OUTSIDE RECORDS SUMMARY | 2025-02-07 09:35 | XMS_ITS | Clinical Summary ---
Author Organization [facility] Address [address] [place] [address] Care Team Providers Care Labor Relations Specialist Name Role Phone Angela Mcdermott APRN Primary Care Provider [phone] Angely Ayon Unavailable [phone] Allergies Active Allergy Reactions Criticality Noted Date Comments Azithromycin Rash Low 12/06/2020 Medications topiramate 50 MG tablet Take 50 mg by mouth every night. 1 Active oxyCODONE (Roxicodone) 5 MG immediate release tabletIndication s:Chronic low back pain with sciatica, sciatica laterality unspecified, unspecified back pain laterality,Statu s post lumbar spinal fusion Take 1 tablet (5 mg total) by mouth every 4 (four) hours. 60 tablet 1 Active Additional Information Patient not taking.Reported on 10/04/2021 famotidine (Pepcid) 10 MG tablet Take by mouth. Activ e methocarbamol (Robaxin) 750 MG tablet Take 1 tablet (750 mg total) by mouth every night. 60 tablet 2 1 Active HYDROcodone-acet aminophen ([place]) 5-325 MG tabletIndication s:Status post lumbar spinal fusion Take 1 tablet by mouth 3 (three) times a day. 90 tablet 1 Active HYDROcodone-acet aminophen ([place]) 5-325 MG tabletIndication s:Status post lumbar spinal fusion Take 1 tablet by mouth 3 (three) times a day if needed for moderate pain or severe pain. 90 tablet 1 Active Additional Information Patient not taking.Reported on 10/04/2021 Active Problems Problem Noted Date Diagnosed Date Muscle spasm of back 02/03/2021 Lumbosacral radiculopathy at L5 12/07/2020 Pain of facet joint 12/07/2020 Spondylolisthesis of lumbosacral region 12/08/19 21 Low back pain 12/06/2020 Resolved Problems Problem Noted Date Diagnosed Date Resolved Date Motion sickness 02/07/2021 02/08/2021 Overview (02/07/2021): Congenital tremor Immunizations Immunization Administration Dates Next Due [facility] COVID-19 Vaccine (Purple Cap) 12 + 12/30/2020,12/02/2020 Family History Medical History Relation Name Comments Diabetes Father Hypertension Father Stroke Father Diabetes Mother Hypertension Mother Stroke Mother Stroke Other 1 Diabetes Other 2 Hypertension Other 3 Relation Name Status Comments Father Mother Other 1 Other 2 Other 3 Social History Tobacco Use Types Packs/Day Years Used Date Smoking Tobacco: Former Cigarettes 0 01/25/1999 - 01/25/2019 Smokeless Tobacco: Former Alcohol Use Standard Drinks/Week Comments Yes 0 (1 standard drink = 0.6 oz pur e alcohol) socially Sex and Gender Information Value Date Recorded Sex Assigned at Not on file Legal Sex Male 8:10 PM EDT Gender Identity Not on file Sexual Orientation Not on file Last Filed Vital Signs Vital Sign Reading Time Taken Comments Blood Pressure 112/82 10/04/2021 8:41 AM EST Pulse 101 02/11/2021 2:28 PM EDT Temperature 36.8 C (98.3 F) 02/11/2021 7:28 AM EDT Respiratory Rate 18 02/11/2021 2:28 PM EDT Oxygen Saturation 97% 02/11/2021 2:28 PM EDT Inhaled Oxygen Concentration - - Weight 99.8 kg (220 lb) 10/04/2021 8:41 AM EST Height 177.8 cm (5' 10 ) 10/04/2021 8:41 AM EST Body Mass Index 31.57 10/04/2021 8:41 AM EST Plan of Treatment Health Maintenance Due Date Last Done Comments [facility]-Depression Screening 1980 [facility]-Infant/Child/Adol SDOH Screenings 1980 [facility]-Varicella Vaccines (1 of 2 - 13+ 2-dose series) 1993 HPV Vaccines (1 - Male 3-dose series) 1995 [facility]- SDOH Screenings 1998 [facility]-Adult SDOH Screenings 1998 [facility]-Hepatitis B Vaccines (1 of 3 - 19+ 3-dose series) 1999 [facility]-FHLSA-26 Vaccine (3 - season) 2024 12/30/2020, 12/02/2020 [facility]-Influenza Vaccine (Season Ended) 2025 06/28/2015 [facility]-DTaP,Tdap,and Td Vaccines (3 - Td or Tdap) 11/09/2027 11/08/2017, 12/18/1995 [facility]-Zoster Vaccines (1 of 2) 2030 [facility]-HIB Vaccines Aged Out No longer e ligible based on patient's age to complete this topic [facility]-Hepatitis A Vaccines Aged Out No longer eligible based on patient's age to complete this topic [facility]-IPV Vaccines Aged Out No longer e ligible based on patient's age to complete this topic [facility]-Pneumococcal Vaccine: Pediatrics (0 to 5 Years) and At-Risk Patients (6 to 49 Years) Aged Out No longer eligible b ased on patient's age to complete this topic [facility]-Rotavirus Vaccines Aged Out No lo nger eligible based on patient's age to complete this topic Medical Devices Implanted Type Area Molder Apprentice Device Identifier Shelf Expiration Date Model / Serial / Lot Graft Vivigen 1cc - [id number] - [id number] Implanted:Qty : 1 on 02/07/2021 by Josiah Harrell MD at [facility] Allograft N/A: Spine Lumbar [facility]-[id number] 01/19/2022 BL-1500-001 / [id number] / Post Ibf Ui H 11mm 8deg 25/05 - [id number] - [id number] Implanted:Qty : 2 on 02/07/2021 by Josiah Harrell MD at [facility] Cage N/A: Spine Lumbar [id number] 08/02/2025 [id number] / [id number] / Pre-Lordosed Jag W/ Line 35mm - [id number] Implanted:Qty : 2 on 02/07/2021 by Josiah Harrell MD at [facility] Nail N/A: Spine Lumbar [employer] LP-[id number] / / Screw 5.5mm Viper Ti Fen Crtcl Polyax 6mm X 45mm - [id number] Implanted:Qty : 4 on 02/07/2021 by Josiah Harrell MD at [facility] Screw N/A: Spine Lumbar [employer] [id number] / / Single Inner Setscrew - [id number] Implanted:Qty : 4 on 02/07/2021 by Josiah Harrell MD at [facility] Screw N/A: Spine Lumbar [employer] LP-[id number] / / Screw 5.5mm Viper Ti Fen Crtcl Polyax 5mm X 45mm - [id number] Implanted:Qty : 1 on 02/07/2021 by Josiah Harrell MD at [facility] Screw N/A: Spine Lumbar [employer] [id number] / / Graft Vivigen 1cc - [id number] Implanted:Qty : 1 on 02/07/2021 at [facility]-[id number] 01/19/2022 BL-1500-001 / / [id number] Insurance ANTH Care Teams Labor Relations Specialist Relationship Specialty Start Date End Date Angela Mcdermott APRN [address] [place] [address] PCP - General 01/14/21 Angely Ayon PA [address] [facility] [address] [place] [phone] Physician Bee Producer Neurosurgery 05/25/21
--- OUTSIDE RECORDS SUMMARY | 2025-02-07 09:35 | XMS_ITS | Data Portability ---
Author Organization [facility] Address [address] [place] [address] Care Team Providers Care Steaming Cabinet Tender Name Role Phone MINI CHO Primary Care Provider LEONARDO HERNANDEZ Debit Agent Assessment Encounter Date Assessment Date Assessment LastModified by Organization Details LastModified Time 10/23/2023 10/23/2023 he is doing very well good tolerance of upgraded activities [place] [id number] Not available 10/23/2023 09:20:55 10/25/2023 10/25/2023 he is doing very well good tolerance of upgraded activities [place] [id number] Not available 10/25/2023 08:54:07 10/29/2023 10/29/2023 he is doing very well good tolerance of upgraded activities [place] [id number] Not available 10/29/2023 09:09:33 10/31/2023 10/31/2023 he is doing very well good tolerance of upgraded activities 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 ST. Wrist/elbow AROM/PROM WFL within 2 weeks 2. Begin infection control specialist/pinch/wrist strengthening progression within 3 weeks 3. Regain forceful grasp for all functional activities within 4-6 weeks Not available 10/23/2023 09:20:55 10/25/2023 [id number] Therapy 1-2 time s per week for 3-4 weeks to regain full ROM and strength. ST. Wrist/elbow AROM/PROM WFL within 2 weeks 2. Begin infection control specialist/pinch/wrist strengthening progression within 3 weeks 3. Regain forceful grasp for all functional activities within 4-6 weeks Not available 10/25/2023 08:54:07 10/29/2023 [id number] Therapy 1-2 time s per week for 3-4 weeks to regain full ROM and strength. ST. Wrist/elbow AROM/PROM WFL within 2 weeks 2. Begin infection control specialist/pinch/wrist strengthening progression within 3 weeks 3. Regain forceful grasp for all functional activities within 4-6 weeks Not available 10/29/2023 09:09:33 10/31/2023 [id number] Therapy 1-2 time s per week for 3-4 weeks to regain full ROM and strength. ST. Wrist/elbow AROM/PROM WFL within 2 weeks 2. Begin infection control specialist/pinch/wrist strengthening progression within 3 weeks 3. Regain forceful grasp for all functional activities within 4-6 weeks Not available 10/31/2023 13:29:28 Reason for Referral None Reported. Problems No Known Problems Procedures Surgical History Date Name Laterality Status Provider Name and Address Organization Details Recorded Time OT Therapeutic Exercise completed JOSEPH GREGORY JR, OTR/L, CHT [address] [place], [address], [facility] 10/31/2023 13:29:27 4 PT Hot/Cold Pack completed JOSEPH GREGORY JR, OTR/L, CHT [address] [place], [address], [facility] 10/31/2023 13:29:27 4 OT Therapeutic Exercise completed JOSEPH GREGORY JR, OTR/L, CHT [address] [place], [address], [facility] 10/29/2023 09:18:57 4 PT Hot/Cold Pack completed JOSEPH GREGROY JR, OTR/L, CHT [address] [place], [address], [facility] 10/29/2023 09:09:33 4 OT Therapeutic Exercise completed JOSEPH GREGORY JR, OTR/L, CHT [address] [place], [address], [facility] 10/25/2023 08:54:07 4 PT Hot/Cold Pack completed JOSEPH GREGORY JR, OTR/L, CHT [address] [place], [address], [facility] 10/25/2023 08:54:07 4 OT Therapeutic Exercise completed JOSEPH GREGORY JR, OTR/L, CHT [address] [place], [address], [facility] 10/23/2023 10:14:05 4 PT Hot/Cold Pack completed JOSEPH GREGORY JR, OTR/L, CHT [address] [place], [address], [facility] 10/23/2023 09:20:55 4 OT Therapeutic Exercise completed JOSEPH GREGORY JR, OTR/L, CHT [address] [place], [address], [facility] 10/17/2023 10:30:18 4 PT Hot/Cold Pack completed JOSEPH GREGORY JR, OTR/L, CHT [address] [place], [address], [facility] 10/17/2023 10:02:05 4 OT Therapeutic Exercise completed JOSEPH GREGORY JR, OTR/L, CHT [address] [place] [place], [address], [facility] 10/15/2023 09:32:01 4 PT Hot/Cold Pack completed JOSEPH GREGORY JR, OTR/L, CHT [address] [place], [address], [facility] 10/15/2023 09:32:01 4 OT Therapeutic Exercise completed JOSEPH GREGORY JR, OTR/L, CHT [address] [place], [address], [facility] 10/11/2023 10:10:46 4 PT Hot/Cold Pack completed JOSEPH GREGORY JR, OTR/L, CHT [address] [place], [address], [facility] 10/11/2023 09:09:15 4 OT Therapeutic Exercise completed JOSEPH GREGORY JR, OTR/L, CHT [address] [place], [address], [facility] 10/09/2023 09:36:31 4 OT Manual Therapy completed JOSEPH GREGORY JR, OTR/L, CHT [address] [place], [address], [facility] 10/09/2023 09:25:10 4 PT Hot/Cold Pack completed JOSEPH GREGORY JR, OTR/L, CHT [address] [place], [address], [facility] 10/09/2023 09:25:10 4 OT Therapeutic Exercise completed JOSEPH GREGORY JR, OTR/L, CHT [address] [place], [address], [facility] 10/02/2023 10:24:48 4 OT Manual Therapy completed JOSEPH GREGORY JR, OTR/L, CHT [address] [place], [address], [facility] 10/02/2023 10:24:48 4 PT Hot/Cold Pack completed JOSEPH GREGORY JR, OTR/L, CHT [address] [place], [address], [facility] 10/02/2023 10:24:48 4 OT Therapeutic Exercise completed JOSEPH GREGORY JR, OTR/L, CHT [address] [place], [address], [facility] 09/27/2023 15:40:41 4 OT Manual Therapy completed JOSEPH GREGORY JR, OTR/L, CHT [address] [place], [address], [facility] 09/27/2023 15:40:37 4 PT Hot/Cold Pack completed JOSEPH GREGORY JR, OTR/L, CHT [address] [place], [address], [facility] 09/27/2023 14:31:25 4 OT Evaluation - Moderate complexity completed JOSEPH GREGORY JR, OTR/L, CHT [address] [place], [address], [facility] 09/24/2023 09:00:28 4 OT Therapeutic Exercise completed JOSEPH GREGORY JR, OTR/L, CHT [address] [place], [address], [facility] 09/24/2023 10:40:54 4 PT Hot/Cold Pack completed JOSEPH GREGORY JR, OTR/L, CHT [address] [place], [address], [facility] 09/24/2023 10:40:56 4 Op Note completed LIONEL ADAN MD [address] [place], [address], [facility] 09/20/2023 14:14:19 3 Orthotic, EWHO, Static Custom completed JOSEPH GREGORY JR, OTR/L, CHT [address] [place], [address], [facility] 06/27/2023 13:52:27 Imaging Results None recorded. Procedure Notes None recorded. Medical Equipment None Reported. Allergies Allergen ID Allergen Name Allergen Category Reaction Reaction Severity Criticality Documentation Date Start Date Code Code System Note Provider Name and Address Organization Details Recorded Time [id number] azithromy ramakrishna medicatio n Not available Not available Not available 06/27/2023 20433 Rx[facility] 13:17:23 Medications Name Sig Start Date [...] Updated DateTime 10/31/2023 177.8 cm 30.6 kg/m2 19397.17 g [facility] 10/31/2023 12:45:08 Social History None recorded. 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 Lateral ep icondylitis of right humerus 6754239985 22981 M77.11 [id number] LIONEL ADAN MD SURGERY SCHEDULE [address] [place] [address] 09/20/2023 10:27:32 09/20/2023 10:30:56 [id number] JOSEPH GREGORY JR, OTR/L, CHT PHYSICAL THERAPY / HAND THERAPY [facility] [address] [place] [address] 09/24/2023 09:23:31 09/25/2023 16:36:10 Lateral epicondylitis of right humerus 2044536642 00122 M77.11 Medial epi condylitis of right elbow joint 0706107224 80886 M77.01 Ulnar nerv e entrapment at elbow 391816440 G56.21 [id number] JOSEPH GREGORY JR, OTR/L, CHT PHYSICAL THERAPY / HAND TH[facility]APY [facility] [address] [place] [address] 09/27/2023 14:28:43 09/28/2023 04:06:49 Lateral epicondylitis of right humerus 2854507975 48942 M77.11 Medial epi condylitis of right elbow joint 3966963392 90821 M77.01 Ulnar nerv e entrapment at elbow 039748920 G56.21 [id number] LIONEL ADAN MD [facility] [address] [place] [address] 10/03/2023 12:07:48 10/03/2023 12:38:42 Medial epicondylitis of right elbow joint 5418569727 03369 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 Lateral ep icondylitis of right humerus 9221688312 11687 M77.11 [id number] JOSEPH GREGORY JR, OTR/L, CHT PHYSICAL THERAPY / HAND THERAPY [facility] [address] [place] [address] 10/02/2023 10:07:55 10/03/2023 04:40:55 Lateral epicondylitis of right humerus 7429934838 07095 M77.11 Medial epi condylitis of right elbow joint 0067563566 63263 M77.01 Ulnar nerv e entrapment at elbow 869993611 G56.21 [id number] JOSEPH GREGORY JR, OTR/L, CHT PHYSICAL THERAPY / HAND THERAPY [facility] [address] [place] [address] 10/09/2023 09:02:04 10/10/2023 04:56:56 Lateral epicondylitis of right humerus 6072402867 33366 M77.11 Medial epi condylitis of right elbow joint 2633667762 25699 M77.01 Ulnar nerv e entrapment at elbow 688758328 G56.21 [id number] JOSEPH GREGORY JR, OTR/L, CHT PHYSICAL THERAPY / HAND TH[facility]APY [facility] [address] [place] [address] 10/11/2023 08:51:46 10/12/2023 05:05:00 Lateral epicondylitis of right humerus 2672023541 22139 M77.11 Medial epi condylitis of right elbow joint 7761761932 77196 M77.01 Ulnar nerv e entrapment at elbow 641517490 G56.21 [id number] JOSEPH GREGORY JR, OTR/L, CHT PHYSICAL THERAPY / HAND THERAPY [facility] [address] [place] [address] 10/15/2023 09:14:49 10/16/2023 04:33:44 Lateral epicondylitis of right humerus 5572368103 49248 M77.11 Medial epi condylitis of right elbow joint 1590950305 77076 M77.01 Ulnar nerv e entrapment at elbow 881970691 G56.21 [id number] JOSEPH GREGORY JR, OTR/L, CHT PHYSICAL THERAPY / HAND THERAPY [facility] [address] [place] [address] 10/17/2023 09:56:50 10/18/2023 04:25:31 Lateral epicondylitis of right humerus 0294157112 39015 M77.11 Medial epi condylitis of right elbow joint 5019374670 63447 M77.01 Ulnar nerv e entrapment at elbow 026472578 G56.21 [id number] JOSEPH GREGORY JR, OTR/L, CHT PHYSICAL THERAPY / HAND THERAPY [facility] [address] [place] [address] 10/23/2023 08:49:14 10/24/2023 11:20:54 Lateral epicondylitis of right humerus 3794024138 89653 M77.11 Medial epi condylitis of right elbow joint 1531657188 52924 M77.01 Ulnar nerv e entrapment at elbow 189227708 G56.21 [id number] JOSEPH GREGORY JR, OTR/L, CHT PHYSICAL THERAPY / HAND THERAPY [facility] [address] [place] [address] 10/25/2023 08:45:14 10/26/2023 05:00:23 Lateral epicondylitis of right humerus 9120583864 24295 M77.11 Medial epi condylitis of right elbow joint 0846935170 46020 M77.01 Ulnar nerv e entrapment at elbow 849172808 G56.21 [id number] LIONEL ADAN MD [facility]EDI [facility] [address] [place] [address] 10/31/2023 12:40:23 10/31/2023 13:02:37 Medial epicondylitis of right elbow joint 5708841833 22926 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 Lateral ep icondylitis of right humerus 2902867793 18514 M77.11 Postoperative care 37022 9007 Z48.89 5 weeks s/p medial lateral epicondyle debridemen t with ulnar nerve transposit ion. He continues to heal well. Patient will begin physical therapy. F/U PRN. [id number] JOSEPH GREGORY JR, OTR/L, CHT PHYSICAL THERAPY / HAND THERAPY [facility] [address] [place] [address] 10/29/2023 08:58:33 10/30/2023 04:46:30 Lateral epicondylitis of right humerus 2118602796 04628 M77.11 Medial epi condylitis of right elbow joint 6161196680 23547 M77.01 Ulnar nerv e entrapment at elbow 036863539 G56.21 [id number] JOSEPH GREGORY JR, OTR/L, CHT PHYSICAL THERAPY / HAND [facility]APY [facility] [address] [place] [address] 10/31/2023 12:40:43 11/01/2023 04:52:10 Lateral epicondylitis of right humerus 7818606079 27510 M77.11 Medial epi condylitis of right elbow joint 8899801365 49349 M77.01 Ulnar nerv e entrapment at elbow 722939046 G56.21 Health Concerns Section Related Observation LastModified [...] JOSEPH GREGORY JR, OTR/L, CHT [address] [place], [address], [facility] 10/23/2023 10:14:19 4 text/html PT Functional and [...] JOSEPH GREGORY JR, OTR/L, CHT [address] [place], [address], [facility] 10/25/2023 09:32:52 4 text/html PT Functional and [...] ADL's JOSEPH GREGORY JR, OTR/L, CHT [address] [place], [address], [facility] 10/29/2023 09:53:00 4 text/html POST OP GLOBAL [...] due to surgery LIONEL ADAN MD [address] [place], [address], [facility] 10/31/2023 12:58:19 4 text/html PT Functional and [...] ADL's JOSEPH GREGORY JR, OTR/L, CHT [address] [place], [address], [facility] 10/31/2023 14:04:36
--- NOTE | 2025-02-07 09:46 | CT_ITS ---
PROCEDURE INFORMATION: Exam: CT Abdomen And Pelvis With Contrast Exam date and time: 02/07/2025 10:54 AM Age: 44 years old Clinical indication: Other: Severe epigastric pain/n/v TECHNIQUE: Imaging protocol: Computed tomography of the abdomen and pelvis with contrast. Radiation optimization: All CT scans at this facility use at least one of these dose optimization techniques: automated exposure control; mA and/or kV adjustment per patient size (includes targeted exams where dose is matched to clinical indication); or iterative reconstruction. Contrast material: ISOVUE; Contrast volume: 75 ml; Contrast route: IV; COMPARISON: CT ABDOMEN PELVIS W CON 02/03/2025 8:29 PM FINDINGS: Lungs: Calcified granuloma in the left lung. Liver: Normal. No mass. Gallbladder and biliary ducts: Normal. No calcified stones. No ductal dilation. Pancreas: Normal. No ductal dilation. Spleen: Normal. No splenomegaly. Adrenal glands: Normal. No mass. Kidneys and ureters: Normal. No hydronephrosis. Stomach and bowel: Low-density mural thickening of the stomach has worsened compared to 02/03/2025. No bowel obstruction. Appendix: No evidence of appendicitis. Intraperitoneal space: Increased stranding and edema in the upper abdomen. Vasculature: Unremarkable. No abdominal aortic aneurysm. Lymph nodes: Some mildly prominent perigastric lymph nodes are seen. Urinary bladder: Unremarkable as visualized. Reproductive: Unremarkable as visualized. Bones/joints: Changes of PLIF at L5-S1. Soft tissues: Unremarkable. IMPRESSION: Findings of gastritis have worsened compared to 02/03/2025.
--- NOTE | 2025-02-07 09:47 | HMH.EDGENADL ---
Discharge Plan Disposition Patient Disposition: Admitted Clinical Impressions Clinical Impression: SIRS (systemic inflammatory response syndrome), Gastritis, Abdominal pain Discharge ED Provider: Guerline Luna General Adult HPI General Chief complaint: Abdominal Pain Stated complaint: Severe abd pain, fever, SOB Time Seen by Provider: 02/07/25 09:39 History of Present Illness HPI narrative: This patient is a 44-year-old male who denies significant past medical history presenting to the emergency department for evaluation with concern for severe upper/epigastric abdominal pain, nausea, vomiting, and fever at home with a Tmax of 101 ?F. Patient notes that he was evaluated here 02/03/2025 after onset of pain, but is progressively worsened since then to the point where he is now only able to tolerate sips of water or chicken broth. He states that he cannot tolerate oral intake of anything else and is subsequently had decreased stool and urine output. He notes significant dry heaving. He states that he was told to follow-up with GI for gastritis, but he was unable to make an appoint with him until 03/02/2025. Given this and worsening of pain, he elected to come back in today. No other concerns or complaints noted at this time. Related Data Home Medications ?Medication ?Instructions ?Recorded ?Confirmed dextroamphetamine-amphetamine ER 30 mg PO DAILY 07/06/24 02/07/25 30 mg 24hr capsule,extend release clonidine HCl 0.1 mg 0.1 mg PO HS 02/07/25 02/07/25 tablet,extended release,12 hr doxepin 25 mg capsule 50 mg PO HSP PRN Sleep 02/07/25 02/07/25 sucralfate 1 gram tablet 1 g PO QID 02/07/25 02/07/25 venlafaxine 150 mg 150 mg PO DAILY 02/07/25 02/07/25 capsule,extended release 24 hr Previous Rx's ?Medication ?Instructions ?Recorded pantoprazole 40 mg tablet,delayed 40 mg PO DAILY #30 tabs 02/03/25 release (Protonix) Allergies Allergy/AdvReac Type Severity Reaction Status Date / Time chlorpheniramine (From Allergy Unknown Verified 12/10/23 10:20 [facility] ) codeine (From [facility]) Allergy Unknown Verified 12/10/23 10:20 dihydrocodeine (From Allergy Unknown Verified 12/10/23 10:20 [facility]) phenylephrine (From Allergy Unknown Verified 12/10/23 10:20 [facility]) pseudoephedrine (From Allergy Unknown Verified 12/10/23 10:20 [facility]) azithromycin (From Zithromax) Allergy Verified 12/10/23 10:21 prednisone AdvReac Mild Agitated Verified 12/10/23 10:20 [facility] Disclaimer: The information contained in this section may have been updated after the patient was seen, as this information can be updated by other users. Social History Smoking Status: Former smoker tobacco type: cigarettes second hand exposure: Yes alcohol intake: never current occupational status: other Travel in the last 8 weeks?: None Have you lived/traveled outside US in past 30 days?: No Contact w/someone who lives/traveled outside US past 30 days?: No Exposure to someone with infectious disease in past 14 days?: No Do you have a fever (greater than 100.4 F or 38 C)?: Yes Have you tested positive for COVID-19?: No Exposed to someone with COVID-19 in past 14 days?: No Do you have a sore throat?: No Do you have a cough?: No Do you have any weakness?: No Do you have any diarrhea?: No Are you experiencing any unusual bleeding?: No Do you have any muscle aches/pain?: No Do you have any abdominal pain?: No Are you experiencing loss of taste or smell?: No Other Medical History Have you received the Flu Vaccine for this season: No Have you received the Pneumonia Vaccine: No ROS Obtained: Yes All systems reviewed & no additional complaints except as documented Physical Exam General General appearance: alert and in no apparent distress Head Head exam: atraumatic and normocephalic Eye Eye exam: Present normal appearance, PERRL and EOMI ENT ENT exam: Present normal exam, normal oropharynx, mucous membranes moist and normal external ear exam Neck Neck exam: Present normal inspection, full ROM and trachea midline; Absent tenderness Chest Chest inspection: Present normal inspection and symmetric chest wall rise; Absent tenderness Respiratory Respiratory exam: Present normal lung sounds bilaterally; Absent respiratory distress, wheezes, stridor or accessory muscle use Cardiovascular Cardiovascular exam: Present normal rhythm and tachycardia Abdominal Exam Abdominal exam: Present soft and tenderness (Epigastric); Absent distention, guarding, rebound or rigidity Extremities Exam Extremities exam: Present normal inspection, full ROM and normal capillary refill; Absent tenderness or edema Back Exam Back exam: Present normal inspection and full ROM; Absent tenderness Neurological Exam Neurological exam: Present alert, oriented X3, CN II-XII intact and normal gait; Absent motor sensory deficit Psychiatric Psychiatric exam: Present normal affect and normal mood Skin Skin exam: Present warm and dry Medical Decision Making Medical Records Medical records reviewed: Yes I reviewed the patient's medical records. Screening: Per USPSTF and CDC recommendations, given the prevalence of disease in our region, it is our hospital?s policy to screen for HIV and viral Hepatitis for all patients aged 18 and over and those with ongoing risk factors. Mark Inquiry Pt receiving controlled substance: No Vital Signs: 02/07/25 09:45 02/07/25 10:00 02/07/25 10:30 Temperature 99.7 F H Temperature Source Oral Pulse Rate 99 H 89 Pulse Rate [Right Radial] 110 H Respiratory Rate 15 18 18 Blood Pressure 119/83 119/81 Blood Pressure [Right Arm] 125/88 Blood Pressure Mean 96 90 Blood Pressure Mean [Right Arm] 100 Blood Pressure Source [Right Arm] Automatic Cuff Blood Pressure Position [Right Arm] Sitting 02 Sat by Pulse Oximetry 99 97 96 Oxygen Delivery Method Room Air 02/07/25 11:00 02/07/25 11:34 02/07/25 12:00 Temperature Temperature Source Pulse Rate 82 83 86 Pulse Rate [Right Radial] Respiratory Rate 18 Blood Pressure 112/70 107/66 L 117/65 Blood Pressure [Right Arm] Blood Pressure Mean 77 Blood Pressure Mean [Right Arm] Blood Pressure Source [Right Arm] Blood Pressure Position [Right Arm] 02 Sat by Pulse Oximetry 95 99 96 Oxygen Delivery Method Room Air 02/07/25 12:30 02/07/25 13:00 02/07/25 13:30 Temperature Temperature Source Pulse Rate 83 77 84 Pulse Rate [Right Radial] Respiratory Rate 18 18 Blood Pressure 112/73 116/73 Blood Pressure [Right Arm] Blood Pressure Mean 82 81 Blood Pressure Mean [Right Arm] Blood Pressure Source [Right Arm] Blood Pressure Position [Right Arm] 02 Sat by Pulse Oximetry 96 98 98 Oxygen Delivery Method 02/07/25 14:00 Temperature Temperature Source Pulse Rate 87 Pulse Rate [Right Radial] Respiratory Rate Blood Pressure 111/77 Blood Pressure [Right Arm] Blood Pressure Mean Blood Pressure Mean [Right Arm] Blood Pressure Source [Right Arm] Blood Pressure Position [Right Arm] 02 Sat by Pulse Oximetry 94 L Oxygen Delivery Method Lab Data Lab results reviewed: Yes I reviewed the patient's lab results. Lab Results 02/07/25 09:43: WBC 21.0 H*, RBC 5.46, Hgb 15.8, Hct 46.2, MCV 84.6, MCH 28.9, MCHC 34.2, RDW 13.0, Plt Count 289, MPV 9.0, Neut % (Auto) 81.3 H, Lymph % (Auto) 7.1 L, [place] % (Auto) 10.6 H, Eos % (Auto) 0.1, Baso % (Auto) 0.5, Neut # (Auto) 17.0 H, Lymph # (Auto) 1.5, [place] # (Auto) 2.2 H, Eos # (Auto) 0.0, Baso # (Auto) 0.1, Total Counted 100, Neutrophils % (Manual) 87 H, Lymphocytes % (Manual) 5 L, Monocytes % (Manual) 8, Platelet Estimate Normal, RBC Morphology Normal, Sodium 132 L, Potassium 4.0, Chloride 102, Carbon Dioxide 25, Anion Gap 9.0, BUN 16, Creatinine 1.00, Estimated Creat Clear 132, Estimated GFR 81, Est GFR ( Amer) 98, Glucose 108 H, Lactate 0.7, Calcium 8.9, Total Bilirubin 0.9, AST 24, ALT 24, Alkaline Phosphatase 87, Total Protein 7.5, Albumin 4.2, Globulin 3.3 H, Albumin/Globulin Ratio 1.3, Lipase 43, Plasma/Serum Alcohol < 10, HCV Ab MARYJO w/Rflx PCR Qn Reactive, HIV Ag/Ab Combo Qual Negative 02/07/25 11:32: Urine Color Yellow, Urine Appearance Clear, Urine pH 6.0, Ur Specific [place] <= 1.005, Urine Protein Negative, Urine Glucose (UA) Negative, Urine Ketones 1+, Urine Blood Trace-i, Urine Nitrate Negative, Urine Bilirubin Negative, Urine Urobilinogen 0.2, Ur Leukocyte Esterase Negative, Urine RBC None, Urine WBC Occasional, Ur Squamous Epith Cells Occasional, Urine Bacteria Trace, Urine Opiates Screen Negative, Urine Methadone Screen Negative, Ur Barbituates Screen Negative, Ur Phencyclidine Scrn Negative, Ur Amphetamines Screen Positive H, U Benzodiazepines Scrn Negative, Urine Cocaine Screen Negative, U Marijuana (THC) Screen Positive H 02/07/25 09:43 02/07/25 09:43 Orders (Tests/Meds): ED MEDICATIONS Generic Name Dose Route Start Last Admin Trade Name Freq PRN Reason Stop Dose Admin Sodium Chloride 10 ml 02/07/25 09:46 Sodium Chloride 0.9% 10ml Vial IV 03/09/25 09:45 NEEDED PRN dilute protonix Discontinued Medications Generic Name Dose Route Start Last Admin Trade Name Freq PRN Reason Stop Dose Admin Acetaminophen 1,000 mg 02/07/25 09:46 02/07/25 09:56 Acetaminophen 1,000mg/100ml Vial IV 02/07/25 09:47 1,000 mg ONCE ONE Administration Belladonna Alkaloids 60 ml 02/07/25 12:15 02/07/25 12:21 Belladonna Alkaloids 60 Ml Ml PO 02/07/25 12:16 60 ml ONCE ONE Administration Lactated Ringer's 1,000 mls @ 999 mls/hr 02/07/25 09:46 02/07/25 09:56 Lactated Ringer's 1000 Ml Bag IV 02/07/25 10:46 999 mls/hr .Q1H1M ONE Administration Lactated Ringer's 2,190 mls @ 1,095 mls/hr 02/07/25 10:28 02/07/25 10:41 Lactated Ringer's 1000 Ml Bag 30 ml/kg infuse over 2 hr (2190 ml) 02/07/25 12:27 1,095 mls/hr IV Administration .Q2H ONE Ampicillin Sodium/Sulbactam 100 mls @ 200 mls/hr 02/07/25 13:01 02/07/25 13:22 Sodium 3 gm/ Sodium Chloride IV 02/07/25 13:02 200 mls/hr ONCE ONE Administration Iopamidol 75 ml 02/07/25 10:52 02/07/25 10:53 Iopamidol-370 (76%);100ml Bottle IV 02/07/25 10:53 75 ml ONCE ONE Administration Ketorolac Tromethamine 15 mg 02/07/25 09:46 02/07/25 09:56 Ketorolac 30mg/Ml Vial IV 02/07/25 09:47 15 mg ONCE ONE Administration Ondansetron HCl 4 mg 02/07/25 09:46 02/07/25 09:56 Ondansetron 4mg/2ml Vial IV 02/07/25 09:47 4 mg ONCE ONE Administration Pantoprazole Sodium 40 mg 02/07/25 09:46 02/07/25 09:56 Pantoprazole 40mg Vial IV 02/07/25 09:47 40 mg ONCE ONE Administration Sodium Chloride 10 ml 02/07/25 10:52 02/07/25 10:53 Sodium Chloride 0.9% 10ml Syr (Rad Only) IV 02/07/25 10:53 10 ml ONCE ONE Administration ORDERS Category Date Time Status CT abdomen pelvis w con Stat Cat Scan 02/07/25 09:46 Completed CXR 2 view (NOT portable) [XR chest 2V] Stat Exams 02/07/25 12:23 Completed Complete Blood Count Auto Diff Stat Lab 02/07/25 09:43 Completed Comprehensive Metabolic Panel Stat Lab 02/07/25 09:43 Completed Ethyl Alcohol Stat Lab 02/07/25 09:43 Completed HCV RNA PCR, Quant Stat Lab 02/07/25 09:43 Received HIV Combo Stat Lab 02/07/25 09:43 Completed Hepatitis C Ab Qual. W/ RFX Stat Lab 02/07/25 09:43 Completed Lactic Acid Stat Lab 02/07/25 09:43 Completed Lipase Stat Lab 02/07/25 09:43 Completed UA [Urinalysis and Microscopic] Stat Lab 02/07/25 11:32 Completed UDS [Drug Screen,Urine] Stat Lab 02/07/25 11:32 Completed Blood Culture Stat Micro 02/07/25 10:29 Received ECG Data Tracing #1: I reviewed this ECG and interpreted as documented below: Normal sinus rhythm with a ventricular rate of [address] changes concerning for ischemia. Normal intervals ECG initial impression date: 02/07/25 ECG initial impression time: 10:21 Medical Decision Narrative: In summary, this patient is a 44-year-old man presenting to the Emergency Department for evaluation of epigastric abdominal pain and tenderness as well as fevers, nausea, dry heaves. Differential diagnoses considered include but are not limited to gastritis, gastroenteritis, colitis, pancreatitis, cholecystitis, ascending cholangitis. Ruling out the most morbid conditions drove assessment. I reviewed patient's past medical records and noted evaluation here 02/03/2025 for similar symptoms with diagnosis of gastritis and discharged home. He had a CT scan at that time and labs that were reassuring with the exception of mild leukocytosis and CT scan concerning for gastritis. He had a bedside [id number] gallbladder ultrasound performed that demonstrated a contracted gallbladder without findings concerning for acute cholecystitis per the provider's note. He was discharged home with prescription for PPI, instructions for close follow-up with GI, and strict return precautions. On exam, the patient has epigastric tenderness with no rebound, guarding, or rigidity. He is mildly tachycardic but he is afebrile and nontoxic-appearing with normal blood pressure at this time. Cardiopulmonary exam is reassuring. Workup included CBC, CMP, lipase, CT abdomen pelvis with IV contrast. He was given a bolus of IV fluids as well as IV Toradol, acetaminophen, Zofran, and pantoprazole. I independently interpreted CT scan prior to the radiologist read and noted inflammation around the stomach with fat stranding, but no obvious perforation. No obvious gallbladder inflammation or pericholecystic fluid. Please see their read for final interpretation. Labs were obtained that demonstrated leukocytosis at 21,000, which is new. Chemistry is reassuring with normal liver enzymes, normal kidney function, normal lipase.. On reassessment, patient had no improvement after administration of interventions above. He continues to have significant pain, so administered GI cocktail which also did not help. Given this is a second visit for severe gastritis with worsening pain and difficulty tolerating oral intake at home, I called and had an interactive discussion with GI. I also obtained chest x-ray to rule out pulmonary cause of infection, and chest x-ray on my independent interpretation is clear with no large focal consolidation concerning for pneumonia. Dr. Jc advised that he recommended admission for monitoring and for IV antibiotics pending blood cultures given his severe intractable pain and significant gastric inflammation. He was started on IV Unasyn per his recommendations. I had an indirect discussion with the hospitalist who admitted the patient in stable condition. Critical Care Critical Care Time Critical Care Time: No
[2025-02-07 09:54] LABS: Basophils # 0.1 K/mm3 (0-0.2); Basophils % 0.5 % (0.1-2.0); Eosinophils % 0.1 % (0.1-12.0); Hematocrit 46.2 % (42.0-52.0); Hemoglobin 15.8 g/dL (14.1-18.0); Immature Granulocytes # 0.09 10^3uL; Immature Granulocytes % 0.4 %; Lymphocytes # 1.5 K/mm3 (0.7-4.5); Lymphocytes % 7.1 % (10-50); Mean Corpuscular HGB Conc 34.2 g/dL (31.8-35.4); Mean Corpuscular Hemoglobin 28.9 pg (27.0-31.2); Mean Corpuscular Volume 84.6 fl (80-94); Monocytes # 2.2 K/mm3 (0.1-1.0); Monocytes % 10.6 % (1.7-9.3); Neutrophils % 81.3 % (37.0-80.0); Nucleated Red Blood Cells # 0 10^3/uL; Nucleated Red Blood Cells % 0 %; Platelet Count 289 K/mm3 (142-424); Red Blood Count 5.46 M/mm3 (4.60-6.20); Red Cell Distribution Width-SD 40.1 fL
[2025-02-07] MEDS: KETOROLAC 30MG/ML VIAL 15 MG IV (09:56)
[2025-02-07] MEDS: ONDANSETRON 4MG/2ML VIAL 4 MG IV (09:56)
[2025-02-07] MEDS: PANTOPRAZOLE 40MG VIAL 40 MG IV ×2 (09:56→20:18)
[2025-02-07] MEDS: ACETAMINOPHEN 1,000MG/100ML VIAL 1000 MG IV (09:56)
[2025-02-07] MEDS: LACTATED RINGERS 1000ML 1,000 ML 999 ML IV (09:56)
[2025-02-07 10:04] LABS: Alanine Aminotransferase 24 U/L (12-78); Albumin Level 4.2 g/dl (3.5-5.0); Albumin/Globulin Ratio 1.3 (1.1-1.8); Alkaline Phosphatase 87 U/L (38-126); Aspartate Amino Transferase 24 U/L (17-59); Bilirubin,Total 0.9 mg/dl (0.2-1.3); Blood Urea Nitrogen 16 mg/dl (9-20); Calcium 8.9 mg/dl (8.4-10.2); Carbon Dioxide 25 mmol/L (22.0-30.0); Chloride 102 mmol/L (98-107); Creatinine Clearance Estimated 132 mL/min (50-200); Estimated Glomerular Filt Rate 81 ml/min (>60); GFR (African American) 98 ML/MIN (>60); Globulin 3.3 g/dL (1.3-3.2); Glucose 108 mg/dl (74-100); Lipase 43 U/L (23-300); Sodium 132 mmol/L (136-145); Total Protein,Serum 7.5 g/dl (6.3-8.2)
[2025-02-07 10:05] LABS: Lactic Acid 0.7 mmol/L (0.7-2.1)
--- NOTE | 2025-02-07 10:06 | PC.NURSE ---
Rounded on patient , no concerns at this time.
[2025-02-07 10:14] LABS: MANUAL DIFFERENTIAL MANUAL DIFFERENTIAL (MANUAL DIFF)
--- NOTE | 2025-02-07 10:19 | ECG_ITS ---
APPROVED REPORT Exam: Resting ECG HR:88 bpm ECG Measurements Heart Rate 88 AXES CA 146 P 65 QRSd 96 QRS 121 QT 344 T 59 QTc 389 Conclusion SINUS RHYTHM POSSIBLE RIGHT VENTRICULAR HYPERTROPHY [SOME/ALL OF: PROMINENT R IN V1, LATE TRANSITION, RAD, JOMAR, SSS] No STEMI Electronically signed by : BILLY SANTIAGO, 02/07/2025 14:59:05
[2025-02-07] MEDS: LACTATED RINGERS 1000ML 2,190 ML 1095 ML IV (10:41)
[2025-02-07] MEDS: SODIUM CHLORIDE 0.9% 10ML SYR (RAD ONLY) 10 ML IV (10:53)
[2025-02-07] MEDS: IOPAMIDOL-370 (76%);100ML BOTTLE 75 ML IV (10:53)
[2025-02-07 11:17] LABS: Lymphocytes % 5 % (10-50); Monocytes % 8 % (2-9); Neutrophils % 87 % (42-76); Platelet Estimate Normal; RBC Morphology Normal; Total Cells Counted 100
[2025-02-07 11:38] LABS: Microscopic, Urine URINE MICROSCOPIC (MICROSCOPIC)
[2025-02-07 11:43] LABS: Appearance,Urine CLEAR (Clear); Bilirubin,Urine Negative (Negative); Blood, Urine TRACE-I (Negative); Color,Urine YELLOW (Yellow); Glucose,Urine (UA) Negative (Negative); Ketones,Urine 1+ (Negative); Leukocyte Esterase,Urine Negative (Negative); Nitrate,Urine Negative (Negative); Protein,Urine Negative (Negative); Specific Gravity, Urine <= 1.005 (1.005-1.030); Urobilinogen,Urine 0.2 EU/dl (0.2)
[2025-02-07] MEDS: BELLADONNA ALKALOIDS 60 ML ML PO (12:21)
--- NOTE | 2025-02-07 12:23 | XR_ITS ---
PROCEDURE INFORMATION: Exam: XR Chest Exam date and time: 02/07/2025 12:42 PM Age: 44 years old Clinical indication: Chest wall pain; Additional info: Epigastric pain/nausea/vom, former smoker TECHNIQUE: Imaging protocol: Radiologic exam of the chest. Views: 2 views. COMPARISON: CR XR CHEST 2V 07/13/2022 12:33 AM FINDINGS: Lungs: Unremarkable. No consolidation. Pleural spaces: Unremarkable. No pleural effusion. No pneumothorax. Heart/Mediastinum: Unremarkable. No cardiomegaly. Bones/joints: Unremarkable. IMPRESSION: No acute findings.
[2025-02-07 13:06] LABS: Ethyl Alcohol < 10 mg/dl (0-10)
[2025-02-07 13:20] LABS: Amphetamine/Metha Screen,Urine Positive ng/ml (<1000); Barbiturates Screen,Urine Negative ng/ml (<200)
[2025-02-07 13:21] LABS: Benzodiazepines Screen,Urine Negative ng/ml (<200); Cannabinoid Screen,Urine Positive ng/ml (<50)
[2025-02-07 13:22] LABS: Cocaine Screen,Urine Negative ng/ml (<300)
[2025-02-07] MEDS: AMPICILLIN SODIUM/SULBACTAM 3 GM in 0.9 % SODIUM CHLORIDE 100 ML IV (13:22)
[2025-02-07 13:23] LABS: Methadone Screen,Urine Negative ng/ml (<300); Opiate Screen,Urine Negative ng/ml (<300)
[2025-02-07 13:24] LABS: Phencyclidine Screen,Urine Negative ng/ml (<25)
[2025-02-07 13:31] LABS: Bacteria,Urine Trace /lpf; Squamous Epithelial Cell,Urine Occasional #/hpf (0-5); WBC,Urine Occasional #/hpf (0-3)
[2025-02-07 13:40] LABS: HIV Combo NEGATIVE (Negative)
--- NOTE | 2025-02-07 13:41 | PC.NURSE ---
I notified of the need for a bed to admit.
[2025-02-07 13:47] LABS: Hepatitis C Ab Qual. W/ RFX REACTIVE (Negative)
--- NOTE | 2025-02-07 14:07 | HMH.PHAINT1 ---
Pharmacy Intervention Comments: MEDICATION RECONCILIATION COMPLETE USING EXTERNAL PHARMACY FILL HISTORY AND JESÚS REPORT.
--- NOTE | 2025-02-07 14:37 | PC.NURSE ---
arrived by w/c from ED
[2025-02-07] MEDS: LACTATED RINGERS 1000ML 1,000 ML 100 ML IV (17:01)
[2025-02-07] MEDS: SUCRALFATE 1GM TABLET 1 GM PO ×2 (17:01→20:18)
[2025-02-07] MEDS: miSOPROStoL 200 MCG TABLET PO ×2 (17:22→21:16)
--- NOTE | 2025-02-07 17:26 | EXP.HP ---
History of Present Illness *Admission Date: 02/07/25 *Reason for visit:: Abdominal pain *History of present illness: Andre Smith is a 44-year-old male with a medical history significant for ADHD, anxiety/depression who presents with 4-day onset of progressive epigastric pain. He states he has been under a lot of stress with his son who has autism, bipolar disorder recently. He denies NSAID, alcohol use, dietary changes. He came to our ED with similar symptoms 2 days ago and diagnosed with gastritis based on CT and discharged with Protonix. He has since followed up with PCP who started Carafate with meals. Patient states he has been taking Protonix, but shortly after his dinner which would deactivate Protonix. He has also not uses Carafate as much because he thought he had only had to use it with an empty stomach. Patient presents with worsening epigastric pain, and CT abdomen/pelvis in the ED revealed worsening gastritis. WBC also 21 with no signs of infection or sepsis. I recommended a GI cocktail without alleviation of symptoms. Case discussed with ED provider and decision was made to admit patient for intractable epigastric pain. [facility] Disclaimer: The information contained in this section may have been updated after the patient was seen, as this information can be updated by other users. Social History Smoking Status: Former smoker tobacco type: cigarettes second hand exposure: Yes alcohol intake: never current occupational status: other Travel in the last 8 weeks?: None Have you lived/traveled outside US in past 30 days?: No Contact w/someone who lives/traveled outside US past 30 days?: No Exposure to someone with infectious disease in past 14 days?: No Do you have a fever (greater than 100.4 F or 38 C)?: Yes Have you tested positive for COVID-19?: No Exposed to someone with COVID-19 in past 14 days?: No Do you have a sore throat?: No Do you have a cough?: No Do you have any weakness?: No Do you have any diarrhea?: No Are you experiencing any unusual bleeding?: No Do you have any muscle aches/pain?: No Do you have any abdominal pain?: No Are you experiencing loss of taste or smell?: No Other Medical History Have you received the Flu Vaccine for this season: Yes Have you received the Pneumonia Vaccine: No Meds Home Medications and Allergies Home Medications ?Medication ?Instructions ?Recorded ?Confirmed ?Type dextroamphetamine-amphetamine ER 30 mg PO DAILY 07/06/24 02/07/25 History 30 mg 24hr capsule,extend release pantoprazole 40 mg tablet,delayed 40 mg PO DAILY #30 tabs 02/03/25 02/07/25 Rx release (Protonix) doxepin 25 mg capsule 50 mg PO HSP PRN Sleep 02/07/25 02/07/25 History sucralfate 1 gram tablet 1 g PO QID 02/07/25 02/07/25 History venlafaxine 150 mg 150 mg PO DAILY 02/07/25 02/07/25 History capsule,extended release 24 hr New Prescriptions to Start Prescriptions: Allergies Allergy/AdvReac Type Severity Reaction Status Date / Time chlorpheniramine (From Allergy Unknown Verified 12/10/23 10:20 [facility]) codeine (From [facility]) Allergy Unknown Verified 12/10/23 10:20 dihydrocodeine (From Allergy Unknown Verified 12/10/23 10:20 [facility]) phenylephrine (From Allergy Unknown Verified 12/10/23 10:20 [facility]) pseudoephedrine (From Allergy Unknown Verified 12/10/23 10:20 [facility]) azithromycin (From Zithromax) Allergy Verified 12/10/23 10:21 prednisone AdvReac Mild Agitated Verified 12/10/23 10:20 Exam Data for Last 24 hours Vital signs and Labs for Last 24 Hours: Temp Pulse Resp BP Pulse Ox O2 Del Method 99.7 F H 89 16 117/80 96 Room Air 02/07/25 14:22 02/07/25 14:47 02/07/25 14:47 02/07/25 14:47 02/07/25 14:47 02/07/25 15:00 Laboratory Results - last 24 hr 02/07/25 09:43: WBC 21.0 H*, RBC 5.46, Hgb 15.8, Hct 46.2, MCV 84.6, MCH 28.9, MCHC 34.2, RDW 13.0, Plt Count 289, MPV 9.0, Neut % (Auto) 81.3 H, Lymph % (Auto) 7.1 L, [place] % (Auto) 10.6 H, Eos % (Auto) 0.1, Baso % (Auto) 0.5, Neut # (Auto) 17.0 H, Lymph # (Auto) 1.5, [place] # (Auto) 2.2 H, Eos # (Auto) 0.0, Baso # (Auto) 0.1, Total Counted 100, Neutrophils % (Manual) 87 H, Lymphocytes % (Manual) 5 L, Monocytes % (Manual) 8, Platelet Estimate Normal, RBC Morphology Normal, Sodium 132 L, Potassium 4.0, Chloride 102, Carbon Dioxide 25, Anion Gap 9.0, BUN 16, Creatinine 1.00, Estimated Creat Clear 132, Estimated GFR 81, Est GFR ( Amer) 98, Glucose 108 H, Lactate 0.7, Calcium 8.9, Total Bilirubin 0.9, AST 24, ALT 24, Alkaline Phosphatase 87, Total Protein 7.5, Albumin 4.2, Globulin 3.3 H, Albumin/Globulin Ratio 1.3, Lipase 43, Plasma/Serum Alcohol < 10, HCV Ab MARYJO w/Rflx PCR Qn Reactive, HIV Ag/Ab Combo Qual Negative 02/07/25 11:32: Urine Color Yellow, Urine Appearance Clear, Urine pH 6.0, Ur Specific [place] <= 1.005, Urine Protein Negative, Urine Glucose (UA) Negative, Urine Ketones 1+, Urine Blood Trace-i, Urine Nitrate Negative, Urine Bilirubin Negative, Urine Urobilinogen 0.2, Ur Leukocyte Esterase Negative, Urine RBC None, Urine WBC Occasional, Ur Squamous Epith Cells Occasional, Urine Bacteria Trace, Urine Opiates Screen Negative, Urine Methadone Screen Negative, Ur Barbituates Screen Negative, Ur Phencyclidine Scrn Negative, Ur Amphetamines Screen Positive H, U Benzodiazepines Scrn Negative, Urine Cocaine Screen Negative, U Marijuana (THC) Screen Positive H I & O for Last 24 hours: Intake & Output 02/04/25 02/05/25 02/06/25 02/07/25 23:59 23:59 23:59 23:59 Weight 98.883 kg Constitutional Constitutional: no acute distress *Routine HEENT Exam Head: Present normocephalic Eye: Present EOMI and PERRL ENT: Present mucous membranes moist *Routine Neck Exam Neck: Present supple; Absent lymphadenopathy *Routine Respiratory Exam Respiratory: Present CTA bilaterally *Routine Cardiovascular Exam Cardiovascular: Present RRR *Routine Abdominal Exam Abdominal: Present soft, normoactive bowel sounds and tenderness Comments: Epigastric tenderness to palpation. *Routine Rectal Exam Rectal:: deferred *Routine Genitalia Exam Genitalia:: deferred *Routine Extremities Exam Extremities: Absent cyanosis, clubbing or edema *Routine Skin Exam Skin: Present warm; Absent rash *Routine Neurological Exam Neurological: Present alert and oriented X3 Assessment and Plan *Assessment and plan (1) Abdominal pain: Status: Acute Category: Medical Code(s): R10.9 - Unspecified abdominal pain Plan Andre Smith is a 44-year-old male with a medical history significant for ADHD, anxiety/depression who presents with 4-day onset of progressive epigastric pain. He states he has been under a lot of stress with his son who has autism, bipolar disorder recently. He denies NSAID, alcohol use, dietary changes. He came to our ED with similar symptoms 2 days ago and diagnosed with gastritis based on CT and discharged with Protonix. He has since followed up with PCP who started Carafate with meals. Patient states he has been taking Protonix, but shortly after his dinner which would deactivate Protonix. He has also not uses Carafate as much because he thought he had only had to use it with an empty stomach. Patient presents with worsening epigastric pain, and CT abdomen/pelvis in the ED revealed worsening gastritis. WBC also 21 with no signs of infection or sepsis. I recommended a GI cocktail without alleviation of symptoms. Case discussed with ED provider and decision was made to admit patient for intractable epigastric pain. #Epigastric pain #Gastritis ? Presents with several day onset of progressive epigastric pain. CT abdomen/pelvis shows worsening gastritis. ? Initial WBC 21, with no evidence of infection. No peritonitis, guarding. Likely stress/pain mediated. ? Patient states he has been extremely stressed taking care of his autistic, bipolar son. Patient has underlying ADHD, anxiety/depression. ? Was not taking Protonix and empty stomach. Gave counseling. ? Low suspicion for bleeding PUD as hemoglobin stable at baseline 15. No disproportionate elevation in BUN. ? Started IV Protonix 40 mg twice daily, Carafate with meals, misoprostol 200 mg 4 times daily. ? Follow-up FOBT. ? Follow-up CBC, CMP in the morning. #Anxiety/depression ? Continue home venlafaxine 150 mg. #ADHD ? Hold home meds for now. Full code DVT prophylaxis: Patient ambulatory
--- NOTE | 2025-02-07 17:47 | PC.NURSE ---
Pt is A&Ox4. Vital signs stable tolerating room air. IV fluids infusing per MAR. Pt resting comfortably with no further needs voiced at this time. Call light within reach.
[2025-02-07] MEDS: SODIUM CHLORIDE 0.9% 10ML VIAL 10 ML IV (20:18)
[2025-02-07] MEDS: DOXEPIN HCL 25 MG CAPSULE 50 MG PO (21:19)
[2025-02-08] VITALS: BP 124/74; PULSE 97; RESP 17; TEMP 37.6; O2SAT 93
[2025-02-08 01:53] LABS: Adenovirus F 40/41, stool Not Detected (NotDetected); Astrovirus Not Detected (NotDetected); Campylobacter Not Detected (NotDetected); Clostridium Difficile A/B, PCR Not Detected (NotDetected); Cryptosporidium Not Detected (NotDetected); Cyclospora Cayetanesis Not Detected (NotDetected); Entamoeba histolytica Not Detected (NotDetected); Enteroaggregative E coli Not Detected (NotDetected); Enterotoxigenic E coli Not Detected (NotDetected); Giardia lamblia Not Detected (NotDetected); Norovirus Not Detected (NotDetected); Plesimonas Shigalloides, PCR Not Detected (NotDetected); Rotavirus A Not Detected (NotDetected); Salmonella, PCR Not Detected (NotDetected); Sapovirus Not Detected (NotDetected); Shiga-like toxin E coli Not Detected (NotDetected); Shigella Enterovasive E coli Not Detected (NotDetected); Vibrio Cholerae Not Detected (NotDetected); Vibrio, PCR Not Detected (NotDetected); Yersinia Entercolitica, PCR Not Detected (NotDetected)
[2025-02-08 02:11] LABS: Occult Blood,Stool Negative (Negative)
[2025-02-08 04:00] VITALS: BP 111/73; PULSE 77; RESP 15; TEMP 36.8; O2SAT 95; BMI 30.9
[2025-02-08] MEDS: LACTATED RINGERS 1000ML 1,000 ML 100 ML IV (04:25)
[2025-02-08 04:41] LABS: Enteropathogenic E coli Detected (NotDetected)
--- NOTE | 2025-02-08 05:10 | PC.NURSE ---
Notified Leta Castillo about stool result at this time.
[2025-02-08] MEDS: SUCRALFATE 1GM TABLET 1 GM PO ×2 (05:18→11:05)
[2025-02-08] MEDS: miSOPROStoL 200 MCG TABLET PO ×2 (05:18→11:05)
--- NOTE | 2025-02-08 05:48 | PC.NURSE ---
Alert and oriented. Room air. Abdomen tender to touch, no pain reported throughout night. at bedside. Patient had several loose bowel movements, diarrhea panel ordered per policy, results read to Jonathan. Call light in reach.
[2025-02-08 06:28] LABS: Basophils # 0.1 K/mm3 (0-0.2); Basophils % 0.5 % (0.1-2.0); Eosinophils # 0.1 Kmm3 (0.0-0.4); Hematocrit 39.1 % (42.0-52.0); Immature Granulocytes # 0.08 10^3uL; Immature Granulocytes % 0.6 %; Lymphocytes # 1.8 K/mm3 (0.7-4.5); Lymphocytes % 12.6 % (10-50); Mean Corpuscular HGB Conc 32.5 g/dL (31.8-35.4); Mean Corpuscular Hemoglobin 28.3 pg (27.0-31.2); Mean Corpuscular Volume 87.3 fl (80-94); Mean Platelet Volume 8.8 fl (7.4-10.4); Monocytes # 1.8 K/mm3 (0.1-1.0); Monocytes % 12.3 % (1.7-9.3); Neutrophils # 10.4 K/mm3 (1.8-7.8); Nucleated Red Blood Cells # 0 10^3/uL; Nucleated Red Blood Cells % 0 %; Platelet Count 233 K/mm3 (142-424); Red Blood Count 4.48 M/mm3 (4.60-6.20); Red Cell Distribution Width 13.1 % (11.5-17.5); Red Cell Distribution Width-SD 42.3 fL; White Blood Count 14.3 K/mm3 (4.8-10.8)
[2025-02-08 06:29] LABS: Albumin Level 3.1 g/dl (3.5-5.0); Chloride 106 mmol/L (98-107); Sodium 134 mmol/L (136-145)
[2025-02-08 06:30] LABS: Potassium 3.7 mmoL/L (3.5-5.1)
[2025-02-08 06:32] LABS: Alanine Aminotransferase 17 U/L (12-78); Albumin/Globulin Ratio 1.2 (1.1-1.8); Alkaline Phosphatase 75 U/L (38-126); Anion Gap 2.7 mEq/L (5-15); Aspartate Amino Transferase 18 U/L (17-59); Bilirubin,Total 0.3 mg/dl (0.2-1.3); Blood Urea Nitrogen 11 mg/dl (9-20); Carbon Dioxide 29 mmol/L (22.0-30.0); Cholesterol 134 mg/dl (140-200); Creatinine Clearance Estimated 131 mL/min (50-200); Estimated Glomerular Filt Rate 81 ml/min (>60); GFR (African American) 98 ML/MIN (>60); Globulin 2.5 g/dL (1.3-3.2); Total Protein,Serum 5.6 g/dl (6.3-8.2); Triglycerides 76 mg/dl (30-150); VLDL Cholesterol 15 mg/dL (0-40)
[2025-02-08 06:33] LABS: Calcium 8.3 mg/dl (8.4-10.2); Chol/HDL Ratio 4.1 (1-3.5); Glucose 99 mg/dl (74-100); HDL Cholesterol 33 mg/dl (40-60)
[2025-02-08 06:44] LABS: Direct LDL Cholesterol 56.92 mg/dL (100-129)
[2025-02-08 07:07] LABS: MANUAL DIFFERENTIAL MANUAL DIFFERENTIAL (MANUAL DIFF)
[2025-02-08 08:00] VITALS: BP 109/67; PULSE 89; RESP 18; TEMP 36.6; O2SAT 90
[2025-02-08] MEDS: VENLAFAXINE XR 75MG CAPSULE 150 MG PO (08:36)
[2025-02-08] MEDS: SODIUM CHLORIDE 0.9% 10ML VIAL 10 ML IV (08:37)
[2025-02-08] MEDS: PANTOPRAZOLE 40MG VIAL 40 MG IV (08:37)
--- NOTE | 2025-02-08 10:42 | EXP.DC.SUM ---
General Admission date:: 02/07/25 HPI HPI HPI: Andre Smith is a 44-year-old male with a medical history significant for ADHD, anxiety/depression who presents with 4-day onset of progressive epigastric pain. He states he has been under a lot of stress with his son who has autism, bipolar disorder recently. He denies NSAID, alcohol use, dietary changes. He came to our ED with similar symptoms 2 days ago and diagnosed with gastritis based on CT and discharged with Protonix. He has since followed up with PCP who started Carafate with meals. Patient states he has been taking Protonix, but shortly after his dinner which would deactivate Protonix. He has also not uses Carafate as much because he thought he had only had to use it with an empty stomach. Patient presents with worsening epigastric pain, and CT abdomen/pelvis in the ED revealed worsening gastritis. WBC also 21 with no signs of infection or sepsis. I recommended a GI cocktail without alleviation of symptoms. Case discussed with ED provider and decision was made to admit patient for intractable epigastric pain. Hospital Course Hospital Course Hospital Course: Andre Smith is a 44-year-old male with a medical history significant for ADHD, anxiety/depression who presents with 4-day onset of progressive epigastric pain. He states he has been under a lot of stress with his son who has autism, bipolar disorder recently. He denies NSAID, alcohol use, dietary changes. He came to our ED with similar symptoms 2 days ago and diagnosed with gastritis based on CT and discharged with Protonix. He has since followed up with PCP who started Carafate with meals. Patient states he has been taking Protonix, but shortly after his dinner which would deactivate Protonix. He has also not uses Carafate as much because he thought he had only had to use it with an empty stomach. Patient presents with worsening epigastric pain, and CT abdomen/pelvis in the ED revealed worsening gastritis. WBC also 21 with no signs of infection or sepsis. I recommended a GI cocktail without alleviation of symptoms. Case discussed with ED provider and decision was made to admit patient for intractable epigastric pain. #Epigastric pain #Gastritis #Post infectious dyspepsia ? Presents with several day onset of progressive epigastric pain. CT abdomen/pelvis shows worsening gastritis. ? Initial WBC 21, with no evidence of infection. No peritonitis, guarding. Likely stress/pain mediated. Improved to 14.3 on day of discharge. ? Patient states he has been extremely stressed taking care of his autistic, bipolar son. Patient has underlying ADHD, anxiety/depression. ? Was not taking Protonix on empty stomach. Encouraged to do so. ? Low suspicion for bleeding PUD as hemoglobin stable at baseline 15. No disproportionate elevation in BUN. ? Clinically improved with IV Protonix 40 mg twice daily, Carafate with meals, misoprostol 200 mg 4 times daily. ? GI panel positive for EPEC, GI believes this is likely contributor of postinfectious dyspepsia. ? Discharged with Protonix 40 mg twice daily, Carafate with meals. ? Will have advised to follow-up with GI within 2 weeks. #Anxiety/depression ? Continue home venlafaxine 150 mg. #ADHD ?Continue home medications. Exam Data for Last 24 hours Vital signs and Labs for Last 24 Hours: Temp Pulse Resp BP Pulse Ox O2 Del Method 97.9 F 89 18 109/67 L 90 L Room Air 02/08/25 08:00 02/08/25 08:00 02/08/25 08:00 02/08/25 08:00 02/08/25 08:00 02/08/25 08:59 Laboratory Results - last 24 hr 02/07/25 09:43: Total Counted 100, Neutrophils % (Manual) 87 H, Lymphocytes % (Manual) 5 L, Monocytes % (Manual) 8, Platelet Estimate Normal, RBC Morphology Normal, Plasma/Serum Alcohol < 10, HCV Ab MARYJO w/Rflx PCR Qn Reactive, HIV Ag/Ab Combo Qual Negative 02/07/25 11:32: Urine Color Yellow, Urine Appearance Clear, Urine pH 6.0, Ur Specific [place] <= 1.005, Urine Protein Negative, Urine Glucose (UA) Negative, Urine Ketones 1+, Urine Blood Trace-i, Urine Nitrate Negative, Urine Bilirubin Negative, Urine Urobilinogen 0.2, Ur Leukocyte Esterase Negative, Urine RBC None, Urine WBC Occasional, Ur Squamous Epith Cells Occasional, Urine Bacteria Trace, Urine Opiates Screen Negative, Urine Methadone Screen Negative, Ur Barbituates Screen Negative, Ur Phencyclidine Scrn Negative, Ur Amphetamines Screen Positive H, U Benzodiazepines Scrn Negative, Urine Cocaine Screen Negative, U Marijuana (THC) Screen Positive H 02/08/25 01:41: Stool Occult Blood Negative, Stl C. cayetanensis PCR Not detected, Stool Rotavirus (PCR) Not detected, Stl Adenov F 40/41 PCR Not detected, Stool Astrovirus (PCR) Not detected, Stool Campylobacter PCR Not detected, Stl C.difficile Tox PCR Not detected, Stool Cryptosporidium PCR Not detected, Stl E.coli Shiga Tox PCR Not detected, Stool E coli O157 PCR Not detected, Stl Enterotoxigenic E PCR Not detected, Stool EPEC (PCR) Detected A, Stool EAEC (PCR) Not detected, Stl E. histolytica PCR Not detected, Stool Giardia Lamblia PCR Not detected, Stool Salmonella PCR Not detected, Stool Sapovirus (PCR) Not detected, Stl P. shigelloides PCR Not detected, Stl Shigella/EIEC PCR Not detected, St Y.enterocolitica PCR Not detected, Stool Vibrio (PCR) Not detected, Stl Vibrio cholerae PCR Not detected, Stl Norovirus GI/GII PCR Not detected 02/08/25 05:55: WBC 14.3 H D, RBC 4.48 L, Hct 39.1 L, MCV 87.3, MCH 28.3, MCHC 32.5, RDW 13.1, Plt Count 233, MPV 8.8, Neut % (Auto) 73.0, Lymph % (Auto) 12.6, [place] % (Auto) 12.3 H, Eos % (Auto) 1.0, Baso % (Auto) 0.5, Neut # (Auto) 10.4 H, Lymph # (Auto) 1.8, [place] # (Auto) 1.8 H, Eos # (Auto) 0.1, Baso # (Auto) 0.1, Sodium 134 L, Potassium 3.7, Chloride 106, Carbon Dioxide 29, Anion Gap 2.7 L, BUN 11 D, Creatinine 1.00, Estimated Creat Clear 131, Estimated GFR 81, Est GFR ( Amer) 98, Glucose 99, Calcium 8.3 L, Magnesium 2.0, Total Bilirubin 0.3, AST 18, ALT 17 D, Alkaline Phosphatase 75, Total Protein 5.6 L D, Albumin 3.1 L D, Globulin 2.5, Albumin/Globulin Ratio 1.2, Triglycerides 76, Cholesterol 134 L, LDL Cholesterol Direct 56.92 L, VLDL Cholesterol 15, HDL Cholesterol 33 L, Cholesterol/HDL Ratio 4.1 H I & O for Last 24 hours: Intake & Output 02/05/25 02/06/25 02/07/25 02/08/25 23:59 23:59 23:59 23:59 Intake Total 320 / 320 1394 / 1394 Output Total 150 / 650 950 / 950 Balance 170 / -330 444 / 444 Weight 98.883 kg 98.089 kg Constitutional Constitutional: no acute distress *Routine HEENT Exam Head: Present normocephalic Eye: Present EOMI and PERRL ENT: Present mucous membranes moist *Routine Neck Exam Neck: Present supple; Absent lymphadenopathy *Routine Respiratory Exam Respiratory: Present CTA bilaterally *Routine Cardiovascular Exam Cardiovascular: Present RRR *Routine Abdominal Exam Abdominal: Present soft and normoactive bowel sounds; Absent tenderness *Routine Extremities Exam Extremities: Absent cyanosis, clubbing or edema *Routine Skin Exam Skin: Present warm; Absent rash *Routine Neurological Exam Neurological: Present alert and oriented X3 Results Data Completed and Pending Labs on day of discharge: Labs from last 24 hours 02/08/25 02/08/25 02/07/25 05:55 01:41 11:32 WBC 14.3 H D RBC 4.48 L Hct 39.1 L MCV 87.3 MCH 28.3 MCHC 32.5 RDW 13.1 Plt Count 233 MPV 8.8 Neut % (Auto) 73.0 Lymph % (Auto) 12.6 [place] % (Auto) 12.3 H Eos % (Auto) 1.0 Baso % (Auto) 0.5 Neut # (Auto) 10.4 H Lymph # (Auto) 1.8 [place] # (Auto) 1.8 H Eos # (Auto) 0.1 Baso # (Auto) 0.1 Total Counted Neutrophils % (Manual) Lymphocytes % (Manual) Monocytes % (Manual) Platelet Estimate RBC Morphology Sodium 134 L Potassium 3.7 Chloride 106 Carbon Dioxide 29 Anion Gap 2.7 L BUN 11 D Creatinine 1.00 Estimated Creat Clear 131 Estimated GFR 81 Est GFR ( Amer) 98 Glucose 99 Calcium 8.3 L Magnesium 2.0 Total Bilirubin 0.3 AST 18 ALT 17 D Alkaline Phosphatase 75 Total Protein 5.6 L D Albumin 3.1 L D Globulin 2.5 Albumin/Globulin Ratio 1.2 Triglycerides 76 Cholesterol 134 L LDL Cholesterol Direct 56.92 L VLDL Cholesterol 15 HDL Cholesterol 33 L Cholesterol/HDL Ratio 4.1 H Urine Color Yellow Urine Appearance Clear Urine pH 6.0 Ur Specific [place] <= 1.005 Urine Protein Negative Urine Glucose (UA) Negative Urine Ketones 1+ Urine Blood Trace-i Urine Nitrate Negative Urine Bilirubin Negative Urine Urobilinogen 0.2 Ur Leukocyte Esterase Negative Urine RBC None Urine WBC Occasional Ur Squamous Epith Cells Occasional Urine Bacteria Trace Stool Occult Blood Negative Stl C. cayetanensis PCR Not detected Stool Rotavirus (PCR) Not detected Stl Adenov F 40/41 PCR Not detected Stool Astrovirus (PCR) Not detected Stool Campylobacter PCR Not detected Stl C.difficile Tox PCR Not detected Stool Cryptosporidium PCR Not detected Stl E.coli Shiga Tox PCR Not detected Stool E coli O157 PCR Not detected Stl Enterotoxigenic E PCR Not detected Stool EPEC (PCR) Detected A Stool EAEC (PCR) Not detected Stl E. histolytica PCR Not detected Stool Giardia Lamblia PCR Not detected Stool Salmonella PCR Not detected Stool Sapovirus (PCR) Not detected Stl P. shigelloides PCR Not detected Stl Shigella/EIEC PCR Not detected St Y.enterocolitica PCR Not detected Stool Vibrio (PCR) Not detected Stl Vibrio cholerae PCR Not detected Stl Norovirus GI/GII PCR Not detected Urine Opiates Screen Negative Urine Methadone Screen Negative Ur Barbituates Screen Negative Ur Phencyclidine Scrn Negative Ur Amphetamines Screen Positive H U Benzodiazepines Scrn Negative Urine Cocaine Screen Negative U Marijuana (THC) Screen Positive H Plasma/Serum Alcohol HCV Ab MARYJO w/Rflx PCR Qn HIV Ag/Ab Combo Qual 02/07/25 09:43 WBC RBC Hct MCV MCH MCHC RDW Plt Count MPV Neut % (Auto) Lymph % (Auto) [place] % (Auto) Eos % (Auto) Baso % (Auto) Neut # (Auto) Lymph # (Auto) [place] # (Auto) Eos # (Auto) Baso # (Auto) Total Counted 100 Neutrophils % (Manual) 87 H Lymphocytes % (Manual) 5 L Monocytes % (Manual) 8 Platelet Estimate Normal RBC Morphology Normal Sodium Potassium Chloride Carbon Dioxide Anion Gap BUN Creatinine Estimated Creat Clear Estimated GFR Est GFR ( Amer) Glucose Calcium Magnesium Total Bilirubin AST ALT Alkaline Phosphatase Total Protein Albumin Globulin Albumin/Globulin Ratio Triglycerides Cholesterol LDL Cholesterol Direct VLDL Cholesterol HDL Cholesterol Cholesterol/HDL Ratio Urine Color Urine Appearance Urine pH Ur Specific [place] Urine Protein Urine Glucose (UA) Urine Ketones Urine Blood Urine Nitrate Urine Bilirubin Urine Urobilinogen Ur Leukocyte Esterase Urine RBC Urine WBC Ur Squamous Epith Cells Urine Bacteria Stool Occult Blood Stl C. cayetanensis PCR Stool Rotavirus (PCR) Stl Adenov F 40/41 PCR Stool Astrovirus (PCR) Stool Campylobacter PCR Stl C.difficile Tox PCR Stool Cryptosporidium PCR Stl E.coli Shiga Tox PCR Stool E coli O157 PCR Stl Enterotoxigenic E PCR Stool EPEC (PCR) Stool EAEC (PCR) Stl E. histolytica PCR Stool Giardia Lamblia PCR Stool Salmonella PCR Stool Sapovirus (PCR) Stl P. shigelloides PCR Stl Shigella/EIEC PCR St Y.enterocolitica PCR Stool Vibrio (PCR) Stl Vibrio cholerae PCR Stl Norovirus GI/GII PCR Urine Opiates Screen Urine Methadone Screen Ur Barbituates Screen Ur Phencyclidine Scrn Ur Amphetamines Screen U Benzodiazepines Scrn Urine Cocaine Screen U Marijuana (THC) Screen Plasma/Serum Alcohol < 10 HCV Ab MARYJO w/Rflx PCR Qn Reactive HIV Ag/Ab Combo Qual Negative DS: Diagnosis Discharge Diagnosis (1) Abdominal pain: Status: Acute Code(s): R10.9 - Unspecified abdominal pain Meds Home Medications and Allergies Home Medications ?Medication ?Instructions ?Recorded ?Confirmed ?Type dextroamphetamine-amphetamine ER 30 mg PO DAILY 07/06/24 02/17/25 History 30 mg 24hr capsule,extend release sucralfate 1 gram tablet 1 g PO QID 02/07/25 02/17/25 History venlafaxine 150 mg 150 mg PO DAILY 02/07/25 02/17/25 History capsule,extended release 24 hr pantoprazole 40 mg tablet,delayed 40 mg PO BID 30 days #60 tabs 02/08/25 02/17/25 Rx release (Protonix) doxepin 25 mg capsule 50 mg PO QHS Sleep 02/17/25 02/17/25 History New Prescriptions to Start Prescriptions: pantdaveazole [Protonix] Joshua Brown Allergies Allergy/AdvReac Type Severity Reaction Status Date / Time chlorpheniramine (From Allergy Unknown Verified 02/17/25 13:17 [facility]) codeine (From [facility]) Allergy Unknown Verified 02/17/25 13:17 dihydrocodeine (From Allergy Unknown Verified 02/17/25 13:17 [facility]) phenylephrine (From Allergy Unknown Verified 02/17/25 13:17 [facility]) pseudoephedrine (From Allergy Unknown Verified 02/17/25 13:17 [facility]) azithromycin (From Zithromax) Allergy Verified 02/17/25 13:17 prednisone AdvReac Mild Agitated Verified 02/17/25 13:17 Discharge Plan Disposition Patient Disposition: Home, Self-Care Condition: Fair Follow up Plan Follow up with: Chito Rose MD [Primary Care Provider, Medical] - Enter time for follow up Prescriptions/Medication Reconciliation: Continued dextroamphetamine-amphetamine 30 mg capsule,extended release 24hr 30 mg PO DAILY Patient Comments: TAKE ONE CAPSULE BY MOUTH EVERY DAY IN THE MORNING sucralfate 1 gram tablet 1 g PO QID venlafaxine 150 mg capsule,extended release 24hr 150 mg PO DAILY Patient Comments: TAKE ONE CAPSULE BY MOUTH EVERY MORNING Changed pantoprazole [Protonix] 40 mg tablet,delayed release (DR/EC) 40 mg PO BID 30 Days Qty: 60 0RF Rx Instructions: Take on empty stomach. No Action doxepin 25 mg capsule 50 mg PO QHS Problem Reconciliation Problems Reviewed?: Yes Patient Discharge Instructions Patient Instructions: DI for Gastritis, DI for Acute Abdominal Pain, DI for Leukocytosis, Stop Light Infection Print Language: Mauritanian Providers Primary Care Provider: Chito Rose Admit Provider: Joshua Brown Attending Provider: Joshua Brown
[2025-02-08] MEDS: levoFLOXacin 750 MG TABLET PO (11:05)
[2025-02-08 12:28] LABS: Eosinophils % 3 % (0-3); Lymphocytes % 15 % (10-50); Monocytes % 6 % (2-9); Neutrophils % 76 % (42-76); Total Cells Counted 100
[2025-02-08 12:29] LABS: Platelet Estimate Normal; RBC Morphology Normal
[2025-02-08 13:01] LABS: Hemoglobin 12.7 g/dL (14.1-18.0)
--- NOTE | 2025-02-09 10:42 | SW/DCPLANNER ---
Spoke with patient on the phone. Patient stated that he is doing well and not in the pain like he was. Patient stated that he is aware of his upcoming appointments. Patient stated that his is on her way to get his new medicine picked up. Patient stated that he has no concerns or questions at this time. Jenelle Daniel
== END 2025-02-08 11:23 | disposition home or self-care (01) ==
LOC: ER 12:35 → 2ND 14:05
PROVIDERS: Student in an Organized Health Care Education/Training Program; Admitting Provider Student in an Organized Health Care Education/Training Program; Emergency Provider Emergency Medicine; PCP Family Medicine; Visit Provider Student in an Organized Health Care Education/Training Program
DX: R10.13 Epigastric pain (principal); K29.70 Gastritis, unspecified, without bleeding; F41.9 Anxiety disorder, unspecified; F32.A Depression, unspecified; F90.9 Attention-deficit hyperactivity disorder, unspecified type; Z87.891 Personal history of nicotine dependence; Z79.899 Other long term (current) drug therapy; Z88.1 Allergy status to other antibiotic agents; Z88.5 Allergy status to narcotic agent; Z88.8 Allergy status to other drugs, medicaments and biological substances
CPT/HCPCS: 96361 ×2; 96365; 96375; 71046; 74177; 80053; 80061; 80307; 80320; 81001; 82272; 83605; 83690; 83735; 85007; 85025; 85027; 86803; 87040; 87389; 87507; 87522; 93005; G0328; G0378; J0131; J0295; J1885; J2405; J2470; J7120; Q9967

== ENCOUNTER 2025-02-18 12:38 | Outpatient (CLI) | payer BC, SELFPAY ==
--- OUTSIDE RECORDS SUMMARY | 2025-02-18 12:41 | XMS_ITS | Clinical Summary ---
Author Organization [facility] Address [address] [place] [address] Care Team Providers Care Linux Network Administrator Name Role Phone Angela Mcdermott APRN Primary Care Provider [phone] Angely Ayon Unavailable [phone] Allergies Active Allergy Reactions Criticality Noted [...] 60 tablet 2 1 Active HYDROcodone-acet aminophen ([place]) 5-325 MG tabletIndication s:Status post lumbar spinal fusion Take 1 tablet by mouth 3 (three) times a day. 90 tablet 1 Active HYDROcodone-acet aminophen ([place]) 5-325 MG tabletIndication s:Status post lumbar spinal [...] tremor Immunizations Immunization Administration Dates Next Due [place] COVID-19 Vaccine (Purple Cap) 12 + 12/30/2020,12/02/2020 [...] of 3 - 19+ 3-dose series) 1999 [id number] Vaccine (3 - season) 2024 12/30/2020, 12/02/2020 [...] this topic Medical Devices Implanted Type Area Equipment Engineering Technician Device Identifier Shelf Expiration Date Model / Serial / Lot Graft Vivigen 1cc - [id number] - [id number] Implanted:Qty : 1 on 02/07/2021 by Josiah Harrell MD at [facility] Allograft N/A: Spine Lumbar [facility]-[id number] 01/19/2022 BL-1500-001 / [id number] / Post Ibf Ui H 11mm 8deg 25/05 - [id number] - [id number] Implanted:Qty : 2 on 02/07/2021 by Josiah Harrell MD at [facility] Cage N/A: Spine Lumbar [employer] Spine Sales [id number] 08/02/2025 [id number] / [id number] / Pre-Lordosed Jag W/ Line 35mm - [id number] Implanted:Qty : 2 on 02/07/2021 by Josiah Harrell MD at [facility] Nail N/A: Spine Lumbar [employer] [id number] / / Screw 5.5mm Viper Ti Fen Crtcl Polyax 6mm X 45mm - [id number] Implanted:Qty : 4 on 02/07/2021 by Josiah Harrell MD at [facility] Screw N/A: Spine Lumbar [employer] Sp[employer] [id number] / / Single Inner Setscrew - [id number] Implanted:Qty : 4 on 02/07/2021 by Josiah Harrell MD at [facility] Screw N/A: Spine Lumbar [employer] Sp[employer] [id number] / / Screw 5.5mm Viper Ti Fen Crtcl Polyax 5mm X 45mm - [id number] Implanted:Qty : 1 on 02/07/2021 by Josiah Harrell MD at [facility] Screw N/A: Spine Lumbar [employer] Sp[employer] [id number] / / Graft Vivigen 1cc - [id number] Implanted:Qty : 1 on 02/07/2021 at [facility]-[id number] 01/19/2022 BL-1500-001 / / [id number] Insurance ANTH Care Teams Linux Network Administrator Relationship Specialty Start Date End Date Angela Mcdermott APRN [address] [place] [address] PCP - General 01/14/21 Angely Ayon PA [address] [facility] [address] [place] [address] [phone] Physician Security Services Specialist Neurosurgery 05/25/21
--- OUTSIDE RECORDS SUMMARY | 2025-02-18 12:41 | XMS_ITS | Clinical Summary ---
Author Organization [facility] Address [address] [place] [id number] Phone [email or web address] Care Team Providers Care Certified Dental Assistant Name Role Phone Lionel Crocker MD Primary Care Provider [phone] Allergies Active Allergy Reactions Criticality Noted Date [...] to complete this topic Insurance VANDANA Jose [id number] ANTHEM IN COPAY 5 OPT OUT NO COPAY NB Care Teams Certified Dental Assistant Relationship Specialty Start Date End Date Lionel Crocker MD [address] [place] [address] VANDANA JOSE [id number] PCP - General Head Animal Keeper 06/04/20
[2025-02-18 12:42] LABS: Adenovirus F 40/41, stool Not Detected (NotDetected); Astrovirus Not Detected (NotDetected); Campylobacter Not Detected (NotDetected); Clostridium Difficile A/B, PCR Not Detected (NotDetected); Cryptosporidium Not Detected (NotDetected); Cyclospora Cayetanesis Not Detected (NotDetected); Entamoeba histolytica Not Detected (NotDetected); Enteroaggregative E coli Not Detected (NotDetected); Enteropathogenic E coli Not Detected (NotDetected); Enterotoxigenic E coli Not Detected (NotDetected); Giardia lamblia Not Detected (NotDetected); Norovirus Not Detected (NotDetected); Plesimonas Shigalloides, PCR Not Detected (NotDetected); Rotavirus A Not Detected (NotDetected); Salmonella, PCR Not Detected (NotDetected); Sapovirus Not Detected (NotDetected); Shiga-like toxin E coli Not Detected (NotDetected); Shigella Enterovasive E coli Not Detected (NotDetected); Vibrio Cholerae Not Detected (NotDetected); Vibrio, PCR Not Detected (NotDetected); Yersinia Entercolitica, PCR Not Detected (NotDetected)
== END 2025-02-18 23:59 | disposition home or self-care (01) ==
LOC: LAB.DROPOF 12:39
PROVIDERS: PCP Family Medicine; Visit Provider Nurse Practitioner
DX: K29.70 Gastritis, unspecified, without bleeding (principal); K27.9 Peptic ulcer, site unspecified, unspecified as acute or chronic, without hemorrhage or perforation
CPT/HCPCS: 87507

== ENCOUNTER 2025-03-12 13:39 | Emergency (ER) | payer BC, SELFPAY ==
--- NOTE | 2025-03-12 13:41 | ECG_ITS ---
APPROVED REPORT Exam: Resting ECG HR:94 bpm ECG Measurements Heart Rate 94 AXES HI 139 P 140 QRSd 99 QRS 147 QT 347 T 136 QTc 398 Conclusion SINUS RHYTHM Normal intervals No ST elevation Inverted P-waves in lead V1 suggest limb lead reversal Electronically signed by : Krystian Oakley, 03/12/2025 16:51:10
[2025-03-12 13:42] VITALS: BP 133/87; PULSE 75; RESP 15; TEMP 36.8; O2SAT 100; BMI 31.5
--- NOTE | 2025-03-12 14:03 | XR_ITS ---
FINAL REPORT CLINICAL HISTORY: Nonspecific chest pain COMPARISON: None FINDINGS: The heart size is normal. The mediastinum is normal. There is no focal infiltrate or edema. There are no pleural effusions. There is no pneumothorax. There is no osseous abnormality. IMPRESSION: No acute cardiopulmonary process Reviewed, Interpreted and Dictated by Meo Hand MD Transcribed by Alaina Mccormick Authenticated and . [facility]
[2025-03-12 14:11] LABS: Hematocrit 42.9 % (42.0-52.0); Hemoglobin 14.3 g/dL (14.1-18.0); Immature Granulocytes % 0.7 %; Mean Corpuscular HGB Conc 33.3 g/dL (31.8-35.4); Mean Corpuscular Hemoglobin 28.9 pg (27.0-31.2); Mean Corpuscular Volume 86.7 fl (80-94); Nucleated Red Blood Cells % 0 %; Platelet Count 241 K/mm3 (142-424); Red Blood Count 4.95 M/mm3 (4.60-6.20); Red Cell Distribution Width-SD 40.4 fL; White Blood Count 7.3 K/mm3 (4.8-10.8)
--- OUTSIDE RECORDS SUMMARY | 2025-03-12 14:12 | XMS_ITS | Clinical Summary ---
Author Organization [facility] Address [address] [place] [address] Phone [email or web address] Care Team Providers Care Liberal Arts Dean Name Role Phone Lionel Crocker MD Primary Care Provider [phone] Allergies Active Allergy Reactions Criticality Noted Date [...] - season) 2024 12/30/2020, 12/02/2020 Influenza Immunization (#1) 2025 06/28/2015 Tetanus Diphtheria and Pertussis Immunization [...] to complete this topic Insurance VANDANA Jose [id number] ANTHEM IN COPAY 5 OPT OUT NO COPAY NB Care Teams Liberal Arts Dean Relationship Specialty Start Date End Date Lionel Crocker MD [address] [place] [address] VANDANA JOSE [id number] PCP - General Motel Manager 06/04/20
--- OUTSIDE RECORDS SUMMARY | 2025-03-12 14:12 | XMS_ITS | Clinical Summary ---
Author Organization [facility] Address [address] [place] [address] Care Team Providers Care Digital Sales Executive Name Role Phone Angela Mcdermott APRN Primary Care Provider [phone] Angely Ayon Unavailable [phone] Allergies Active Allergy Reactions Criticality Noted [...] 60 tablet 2 1 Active HYDROcodone-acet aminophen ([place]) 5-325 MG tabletIndication s:Status post lumbar spinal fusion Take 1 tablet by mouth 3 (three) times a day. 90 tablet 1 Active HYDROcodone-acet aminophen ([place]) 5-325 MG tabletIndication s:Status post lumbar spinal [...] tremor Immunizations Immunization Administration Dates Next Due Social IQ (Social Influence Quotient) COVID-19 Vaccine (Purple Cap) 12 + 12/30/2020,12/02/2020 [...] of 3 - 19+ 3-dose series) 1999 [id number] Vaccine (3 - season) 2024 12/30/2020, 12/02/2020 [facility]-Influenza Vaccine (#1) 2025 06/28/2015 [facility]-DTaP,Tdap,and Td Vaccines (3 - [...] this topic Medical Devices Implanted Type Area Window Installation Subcontractor Device Identifier Shelf Expiration Date Model / Serial / Lot Graft Vivigen 1cc - [id number] - [id number] Implanted:Qty : 1 on 02/07/2021 by Josiah Harrell MD at [facility] Allograft N/A: Spine Lumbar [facility]-[id number] 01/19/2022 BL-1500-001 / [id number] / Post Ibf Ui H 11mm 8deg 25/05 - [id number] - [id number] Implanted:Qty : 2 on 02/07/2021 by Josiah Harrell MD at [facility] Cage N/A: Spine Lumbar [employer] Sales LP-[id number] 08/02/2025 [id number] / [id number] / Pre-Lordosed Jag W/ Line 35mm - [id number] Implanted:Qty : 2 on 02/07/2021 by Josiah Harrell MD at [facility] Nail N/A: Spine Lumbar [employer] [id number] / / Screw 5.5mm Viper Ti Fen Crtcl Polyax 6mm X 45mm - [id number] Implanted:Qty : 4 on 02/07/2021 by Josiah Harrell MD at [facility] Screw N/A: Spine Lumbar [employer] LP-[id number] / / Single Inner Setscrew - [id number] Implanted:Qty : 4 on 02/07/2021 by Josiah Harrell MD at [facility] Screw N/A: Spine Lumbar [employer] LP-[id number] / / Screw 5.5mm Viper Ti Fen Crtcl Polyax 5mm X 45mm - [id number] Implanted:Qty : 1 on 02/07/2021 by Josiah Harrell MD at [facility] Screw N/A: Spine Lumbar [employer] LP-[id number] / / Graft Vivigen 1cc - [id number] Implanted:Qty : 1 on 02/07/2021 at [facility]-[id number] 01/19/2022 BL-1500-001 / / [id number] Insurance ANTH Care Teams Digital Sales Executive Relationship Specialty Start Date End Date Angela Mcdermott APRN [address] [place] [address] PCP - General 01/14/21 Angely Ayon PA [address] [facility] [address] [place] [address] [phone] Physician Pack Worker Neurosurgery 05/25/21
[2025-03-12] MEDS: ASPIRIN 325MG TABLET 325 MG PO (14:16)
[2025-03-12] MEDS: FAMOTIDINE 20MG/2ML VIAL 20 MG IV (14:16)
[2025-03-12 14:19] LABS: Alanine Aminotransferase 27 U/L (12-78); Albumin Level 4.4 g/dl (3.5-5.0); Albumin/Globulin Ratio 1.6 (1.1-1.8); Alkaline Phosphatase 59 U/L (38-126); Anion Gap 13.0 mEq/L (5-15); Aspartate Amino Transferase 31 U/L (17-59); Bilirubin,Total 0.5 mg/dl (0.2-1.3); Blood Urea Nitrogen 22 mg/dl (9-20); Calcium 9.3 mg/dl (8.4-10.2); Carbon Dioxide 29 mmol/L (22.0-30.0); Chloride 101 mmol/L (98-107); Creatinine Clearance Estimated 166 mL/min (50-200); Creatinine,Serum 0.80 mg/dl (0.66-1.25); Estimated Glomerular Filt Rate 105 ml/min (>60); GFR (African American) 127 ML/MIN (>60); Globulin 2.8 g/dL (1.3-3.2); Glucose 110 mg/dl (74-100); Lipase 46 U/L (23-300); Potassium 4.0 mmoL/L (3.5-5.1); Sodium 139 mmol/L (136-145); Total Protein,Serum 7.2 g/dl (6.3-8.2)
[2025-03-12 14:39] LABS: Troponin I < 0.01 ng/ml (0.00-0.034)
[2025-03-12] MEDS: MORPHINE 4MG/ML SYRINGE 4 MG IV (16:14)
[2025-03-12] MEDS: BELLADONNA ALKALOIDS 60 ML ML PO (16:15)
--- NOTE | 2025-03-12 16:48 | ED_ITS ---
Discharge Plan Disposition Patient Disposition: Home, Self-Care Prescriptions Prescriptions: No Action dextroamphetamine-amphetamine 30 mg capsule,extended release 24hr 30 mg PO DAILY Patient Comments: TAKE ONE CAPSULE BY MOUTH EVERY DAY IN THE MORNING sucralfate 1 gram tablet 1 g PO QID venlafaxine 150 mg capsule,extended release 24hr 150 mg PO DAILY Patient Comments: TAKE ONE CAPSULE BY MOUTH EVERY MORNING pantoprazole [Protonix] 40 mg tablet,delayed release (DR/EC) 40 mg PO BID 30 Days Qty: 60 0RF Rx Instructions: Take on empty stomach. doxepin 25 mg capsule 50 mg PO QHS Referrals Follow up/Referrals: Chito Rose MD [Primary Care Provider, Medical] - See instructions Activity Restrictions/Add. Instructions Additional Instructions/Restrictions: Follow-up with your primary care physician if symptoms do not improve. If you develop any new or worsening symptoms, or if you become concerned for your health for any reason, return to the emergency department for evaluation. Clinical Impressions Clinical Impression: Chest pain Print Language Print Language: Maltese Discharge ED Provider: Krystian Oakley HPI <Krystian Oakley DO - Last Filed: 03/12/25 16:59> General Chief Complaint: Chest Pain Stated Complaint: chest pain Time Seen by Provider: 03/12/25 13:45 Mode of Arrival: Ambulatory Source of Information: Patient Description of Symptoms (Recalled from ER Triage Doc. by RN): patient states around noon today he was walking in his garden when he developed sudden chest pressure with sweating that is intermittent 3/10 History of Present Illness HPI narrative: This is a 44-year-old male patient, with no significant past medical history, who is presenting to the emergency department today for evaluation of chest pain. The patient states that approximately 3 hours prior to arrival he began experiencing chest pain in the central aspect of his chest. This pain is nonradiating in nature. He does state that there is a bit of an exertional component to his pain. He is not experiencing any dyspnea. He has not had any lower extremity erythema or edema. He does question whether this pain could be related to his GI tract, however he states that he was told at one point that he has cardiomegaly and he was supposed to follow-up with Dr. Castillo and this causes him to fear that he could be experiencing a heart attack Related Data Home Medications ?Medication ?Instructions ?Recorded ?Confirmed dextroamphetamine-amphetamine ER 30 mg PO DAILY 02/17/25 30 mg 24hr capsule,extend release sucralfate 1 gram tablet 1 g PO QID 02/07/25 02/17/25 venlafaxine 150 mg 150 mg PO DAILY 02/07/25 capsule,extended release 24 hr doxepin 25 mg capsule 50 mg PO QHS Sleep 02/17/25 02/17/25 Previous Rx's ?Medication ?Instructions ?Recorded pantoprazole 40 mg tablet,delayed 40 mg PO BID 30 days #60 tabs 02/08/25 release (Protonix) Allergies Allergy/AdvReac Type Severity Reaction Status Date / Time chlorpheniramine (From Allergy Unknown Verified 02/17/25 13:17 [facility]) codeine (From [facility]) Allergy Unknown Verified 02/17/25 13:17 dihydrocodeine (From Allergy Unknown Verified 02/17/25 13:17 [facility]) phenylephrine (From Allergy Unknown Verified 02/17/25 13:17 [facility]) pseudoephedrine (From Allergy Unknown Verified 02/17/25 13:17 [facility]) azithromycin (From Zithromax) Allergy Verified 02/17/25 13:17 prednisone AdvReac Mild Agitated Verified 02/17/25 13:17 [facility] <Krystian Oakley DO - Last Filed: 03/12/25 16:59> [facility] Disclaimer: The information contained in this section may have been updated after the patient was seen, as this information can be updated by other users. Medical History (Updated 03/12/25 @ 17:33 by Fred Shea MD) Occasional tremors SIRS (systemic inflammatory response syndrome) Gastritis Mood disorder ADHD Surgical History (Updated 02/17/25 @ 13:22 by Lazara Rose MA) Hx of tonsillectomy H/O elbow surgery H/O vasectomy History of back surgery Family History (Updated 02/17/25 @ 13:23 by Lazara Rose MA) Other Cancer Diabetes Social History (Updated 02/17/25 @ 13:24 by Lazara Rose MA) Smoking Status: Never smoker second hand exposure: Yes alcohol intake: current alcohol intake frequency: holidays/special occasions only substance use type: other details: TH[employer] gummies current occupational status: employed Travel in the last 8 weeks?: None Have you lived/traveled outside [place] in past 30 days?: No Contact w/someone who lives/traveled outside [place] past 30 days?: No Exposure to someone with infectious disease in past 14 days?: No Do you have a fever (greater than 100.4 F or 38 C)?: No Have you tested positive for COVID-19?: No Exposed to someone with COVID-19 in past 14 days?: No Do you have a sore throat?: No Do you have a cough?: No Do you have any weakness?: No Do you have any diarrhea?: No Are you experiencing any unusual bleeding?: No Do you have any muscle aches/pain?: No Do you have any abdominal pain?: No Are you experiencing loss of taste or smell?: No Other Medical History Have you received the Flu Vaccine for this season: No Have you received the Pneumonia Vaccine: No <Krystian Oakley DO - Last Filed: 03/12/25 16:59> ROS Obtained: Yes Systems reviewed as appropriate & no additional complaints except as documented Physical Exam <Krystian Oakley DO - Last Filed: 03/12/25 16:59> General General appearance: alert and in no apparent distress Head Head exam: atraumatic and normocephalic Eye Eye exam: Present normal appearance and PERRL ENT ENT exam: Present normal oropharynx and mucous membranes moist Neck Neck exam: Present full ROM and trachea midline Chest Chest inspection: Present symmetric chest wall rise Respiratory Respiratory exam: Present normal lung sounds bilaterally Cardiovascular Cardiovascular exam: Present regular rate and normal rhythm Abdominal Exam Abdominal exam: Present soft; Absent tenderness Extremities Exam Extremities exam: Present normal inspection; Absent tenderness Back Exam Back exam: Absent CVA tenderness (R) or CVA tenderness (L) Neurological Exam Neurological exam: Present alert and oriented X3 HEART Score <Krystian Oakley DO - Last Filed: 03/12/25 16:59> HEART Score HEART Score assessment performed?: Yes History (anamnesis): Moderately suspicious ECG: Normal Age: <45 years Risk factors: No known risk factors Troponin: </= normal limit HEART Score: 1 <Fred Shea MD - Last Filed: 03/13/25 01:45> HEART Score HEART Score: 1 Critical Care <Krystian Oakley DO - Last Filed: 03/12/25 16:59> Critical Care Time Critical Care Time: No Medical Decision Making <Krystian Oakley, DO - Last Filed: 03/12/25 16:59> Medical Records Medical records reviewed: Yes I reviewed the patient's medical records. Mark Inquiry Pt receiving controlled substance: No Mark was queried for this patient: No Vital Signs Vital Signs: 03/12/25 13:42 03/12/25 17:36 Temperature 98.2 F 98.1 F Temperature Source Oral Oral Pulse Rate 68 Pulse Rate [Right Radial] 75 Respiratory Rate 15 15 Blood Pressure 140/84 Blood Pressure [Right Arm] 133/87 Blood Pressure Mean [Right Arm] 102 Blood Pressure Source Automatic Cuff Blood Pressure Source [Right Arm] Automatic Cuff Blood Pressure Position Sitting Blood Pressure Position [Right Arm] Sitting 02 Sat by Pulse Oximetry 100 Oxygen Delivery Method Room Air Room Air Lab Data Labs: Lab Results 03/12/25 13:48: WBC 7.3, RBC 4.95, Hgb 14.3, Hct 42.9, MCV 86.7, MCH 28.9, MCHC 33.3, RDW 13.0, Plt Count 241, MPV 9.2, Neut % (Auto) 63.7, Lymph % (Auto) 22.5, Converse % (Auto) 9.5 H, Eos % (Auto) 2.9, Baso % (Auto) 0.7, Neut # (Auto) 4.7, Lymph # (Auto) 1.7, Converse # (Auto) 0.7, Eos # (Auto) 0.2, Baso # (Auto) 0.1, Sodium 139, Potassium 4.0, Chloride 101, Carbon Dioxide 29, Anion Gap 13.0, BUN 22 H, Creatinine 0.80, Estimated Creat Clear 166, Estimated GFR 105, Est GFR ( Amer) 127, Glucose 110 H, Calcium 9.3, Total Bilirubin 0.5, AST 31, ALT 27, Alkaline Phosphatase 59, Troponin I < 0.01, Total Protein 7.2 D, Albumin 4.4, Globulin 2.8, Albumin/Globulin Ratio 1.6, Lipase 46 03/12/25 16:38: Troponin I < 0.01 03/12/25 13:48 03/12/25 13:48 Response Orders (Tests/Meds): ED MEDICATIONS Discontinued Medications Generic Name Dose Route Start Last Admin Trade Name Phanq PRN Reason Stop Dose Admin Aspirin 325 mg 03/12/25 14:03 03/12/25 14:16 Aspirin 325mg Tablet PO 03/12/25 14:04 325 mg ONCE ONE Administration Belladonna Alkaloids 60 ml 03/12/25 16:06 03/12/25 16:15 Belladonna Alkaloids 60 Ml Ml PO 03/12/25 16:07 60 ml ONCE ONE Administration Famotidine 20 mg 03/12/25 14:03 03/12/25 14:16 Famotidine 20mg/2ml Vial IV 03/12/25 14:04 20 mg ONCE ONE Administration Morphine Sulfate 4 mg 03/12/25 16:06 03/12/25 16:14 Morphine 4mg/Ml Syringe IV 03/12/25 16:07 4 mg ONCE ONE Administration Sodium Chloride 8 ml 03/12/25 14:03 Sodium Chloride 0.9% 10ml Vial IV 04/11/25 14:02 NEEDED PRN dilute pepcid ORDERS Category Date Time Status Portable CXR [XR chest portable] Stat Exams 03/12/25 14:03 Completed CBC w/Auto Diff [Complete Blood Count Auto Diff] Stat Lab 03/12/25 13:48 Completed CMP [Comprehensive Metabolic Panel] Stat Lab 03/12/25 13:48 Completed Lipase Stat Lab 03/12/25 13:48 Completed Troponin I Q3H Lab 03/12/25 16:38 Completed Troponin I Stat Lab 03/12/25 13:48 Completed ECG Data Tracing #1: Attestation: I reviewed this ECG and interpreted as documented below: ECG Narrative: EKG personally interpreted by me demonstrates normal sinus rhythm with a rate of 94 bpm, normal axis, no NC prolongation, narrow QRS, no QTc prolongation. No ST elevation or depression. No overt signs of ischemia or arrhythmia. There are inverted T waves in lead I which suggest limb lead reversal. MDM Narrative Medical Decision Narrative: In summary, this is a 44-year-old male patient who is presenting to the emergency department today with 3 hours of exertional central chest pain that is not associated with shortness of breath or radiation. The patient denies any comorbidities on history and physical. On initial evaluation of the patient they were resting comfortably in no acute distress and nontoxic in appearance. They are hemodynamically stable, saturating well room air, and are neurologically intact. On examination of the patient his heart and lungs are clear to auscultation bilaterally. His radial pulses are equal and symmetric bilaterally. He is moving air well. He does not demonstrate any abdominal tenderness on exam. He has no lower extremity erythema or edema Differential diagnosis to include ACS/DE, pancreatitis, gastritis, pneumonia, pneumothorax, among others. Given that his abdominal exam is so benign I do have very low suspicion for alternative etiologies of his pain such as cholecystitis. The patient's Wells score is low risk and his PERC score is 0. This effectively rules out pulmonary embolism. We will not pursue D-dimer or CT PE study at this time. Workup was initiated with hematologic labs as well as a chest x-ray and EKG. EKG is nonischemic in appearance. Please see interpretation above. Labs personally interpreted by me demonstrates no actionable abnormalities. The patient's initial troponin is undetectably low. Given that his pain onset less than 6 hours ago we will pend a second troponin. Chest x-ray personally interpreted by me demonstrates no lobar consolidation or pleural effusion. Official radiology read is in agreement states there is no acute abnormality. At the time of shift changes patient's second troponin was pending. This case was handed off to the oncoming provider who will follow up on the second troponin and disposition the patient appropriately. The patient was placed in observation status at 1400. Medical necessity for observational status is serial troponins. The patient was provided serial reevaluations and cardiac monitoring while awaiting results. [Results of testing during observation remarkable for:]. [Because of these results I feel patient to be discharged home with follow-up with her PCP versus feel the patient requires admission due to]. Total time in observation [total time]. <Fred Shea MD - Last Filed: 03/13/25 01:45> Vital Signs Vital Signs: 03/12/25 13:42 03/12/25 17:36 Temperature 98.2 F 98.1 F Temperature Source Oral Oral Pulse Rate 68 Pulse Rate [Right Radial] 75 Respiratory Rate 15 15 Blood Pressure 140/84 Blood Pressure [Right Arm] 133/87 Blood Pressure Mean [Right Arm] 102 Blood Pressure Source Automatic Cuff Blood Pressure Source [Right Arm] Automatic Cuff Blood Pressure Position Sitting Blood Pressure Position [Right Arm] Sitting 02 Sat by Pulse Oximetry 100 Oxygen Delivery Method Room Air Room Air Lab Data Labs: Lab Results 03/12/25 13:48: WBC 7.3, RBC 4.95, Hgb 14.3, Hct 42.9, MCV 86.7, MCH 28.9, MCHC 33.3, RDW 13.0, Plt Count 241, MPV 9.2, Neut % (Auto) 63.7, Lymph % (Auto) 22.5, Converse % (Auto) 9.5 H, Eos % (Auto) 2.9, Baso % (Auto) 0.7, Neut # (Auto) 4.7, Lymph # (Auto) 1.7, Converse # (Auto) 0.7, Eos # (Auto) 0.2, Baso # (Auto) 0.1, Sodium 139, Potassium 4.0, Chloride 101, Carbon Dioxide 29, Anion Gap 13.0, BUN 22 H, Creatinine 0.80, Estimated Creat Clear 166, Estimated GFR 105, Est GFR ( Amer) 127, Glucose 110 H, Calcium 9.3, Total Bilirubin 0.5, AST 31, ALT 27, Alkaline Phosphatase 59, Troponin I < 0.01, Total Protein 7.2 D, Albumin 4.4, Globulin 2.8, Albumin/Globulin Ratio 1.6, Lipase 46 03/12/25 16:38: Troponin I < 0.01 Response Orders (Tests/Meds): ED MEDICATIONS Discontinued Medications Generic Name Dose Route Start Last Admin Trade Name Phanq PRN Reason Stop Dose Admin Aspirin 325 mg 03/12/25 14:03 03/12/25 14:16 Aspirin 325mg Tablet PO 03/12/25 14:04 325 mg ONCE ONE Administration Belladonna Alkaloids 60 ml 03/12/25 16:06 03/12/25 16:15 Belladonna Alkaloids 60 Ml Ml PO 03/12/25 16:07 60 ml ONCE ONE Administration Famotidine 20 mg 03/12/25 14:03 03/12/25 14:16 Famotidine 20mg/2ml Vial IV 03/12/25 14:04 20 mg ONCE ONE Administration Morphine Sulfate 4 mg 03/12/25 16:06 03/12/25 16:14 Morphine 4mg/Ml Syringe IV 03/12/25 16:07 4 mg ONCE ONE Administration Sodium Chloride 8 ml 03/12/25 14:03 Sodium Chloride 0.9% 10ml Vial IV 04/11/25 14:02 NEEDED PRN dilute pepcid ORDERS Category Date Time Status Portable CXR [XR chest portable] Stat Exams 03/12/25 14:03 Completed CBC w/Auto Diff [Complete Blood Count Auto Diff] Stat Lab 03/12/25 13:48 Completed CMP [Comprehensive Metabolic Panel] Stat Lab 03/12/25 13:48 Completed Lipase Stat Lab 03/12/25 13:48 Completed Troponin I Q3H Lab 03/12/25 16:38 Completed Troponin I Stat Lab 03/12/25 13:48 Completed MDM Narrative Medical Decision Narrative: In summary, this is a 44-year-old male patient who is presenting to the emergency department today with 3 hours of exertional central chest pain that is not associated with shortness of breath or radiation. The patient denies any comorbidities on history and physical. On initial evaluation of the patient they were resting comfortably in no acute distress and nontoxic in appearance. They are hemodynamically stable, saturating well room air, and are neurologically intact. On examination of the patient his heart and lungs are clear to auscultation bilaterally. His radial pulses are equal and symmetric bilaterally. He is moving air well. He does not demonstrate any abdominal tenderness on exam. He has no lower extremity erythema or edema Differential diagnosis to include ACS/DE, pancreatitis, gastritis, pneumonia, pneumothorax, among others. Given that his abdominal exam is so benign I do have very low suspicion for alternative etiologies of his pain such as cholecystitis. The patient's Wells score is low risk and his PERC score is 0. This effectively rules out pulmonary embolism. We will not pursue D-dimer or CT PE study at this time. Workup was initiated with hematologic labs as well as a chest x-ray and EKG. EKG is nonischemic in appearance. Please see interpretation above. Labs personally interpreted by me demonstrates no actionable abnormalities. The patient's initial troponin is undetectably low. Given that his pain onset less than 6 hours ago we will pend a second troponin. Chest x-ray personally interpreted by me demonstrates no lobar consolidation or pleural effusion. Official radiology read is in agreement states there is no acute abnormality. At the time of shift changes patient's second troponin was pending. This case was handed off to the oncoming provider who will follow up on the second troponin and disposition the patient appropriately. The patient was placed in observation status at 1400. Medical necessity for observational status is serial troponins. The patient was provided serial reevaluations and cardiac monitoring while awaiting results. Fred Shea MD I assumed care of this patient at 1400 pending repeat troponin and reassessment. Patient's repeat troponin unchanged and negative. On reassessment, the patient remained stable condition. His workup today is unremarkable for any acute pathology. Symptoms have largely improved. Given this, will discharge the patient with return precatuions. All questions were answered. He demonstrated understanding and was in agreement with this plan.
[2025-03-12 17:17] LABS: Troponin I < 0.01 ng/ml (0.00-0.034)
[2025-03-12 17:36] VITALS: BP 140/84; PULSE 68; RESP 15; TEMP 36.7; O2SAT 99
== END 2025-03-12 17:40 | disposition home or self-care (01) ==
PROVIDERS: Emergency Provider Student in an Organized Health Care Education/Training Program; PCP Family Medicine
DX: R07.9 Chest pain, unspecified (principal)
CPT/HCPCS: 71045; 80053; 83690; 84484; 85025; 93005; 96374; 96375; 99285; J2270

== ENCOUNTER 2025-03-26 09:27 | Outpatient (CLI) | payer BC, SELFPAY ==
--- OUTSIDE RECORDS SUMMARY | 2025-03-26 09:31 | XMS_ITS | Data Portability ---
Author Organization [facility] Address [address] [place] [address] Care Team Providers Care Senior User Experience Architect Name Role Phone MINI CHO Primary Care Provider LEONARDO HERNANDEZ Marketing Project Specialist Assessment Encounter Date Assessment Date Assessment LastModified by Organization Details LastModified Time 10/23/2023 10/23/2023 he is doing very well good tolerance of upgraded activities [place] [id number] Not available 10/23/2023 09:20:55 10/25/2023 10/25/2023 he is doing very well good tolerance of upgraded activities [place] [address] Not available 10/25/2023 08:54:07 10/29/2023 10/29/2023 he is doing very well good tolerance of upgraded activities [place] [address] Not available 10/29/2023 09:09:33 10/31/2023 10/31/2023 he is doing very well good tolerance of upgraded activities 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 ST. Wrist/elbow AROM/PROM WFL within 2 weeks 2. Begin family services specialist/pinch/wrist strengthening progression within 3 weeks 3. Regain forceful grasp for all functional activities within 4-6 weeks Not available 10/23/2023 09:20:55 10/25/2023 [id number] Therapy 1-2 time s per week for 3-4 weeks to regain full ROM and strength. ST. Wrist/elbow AROM/PROM WFL within 2 weeks 2. Begin family services specialist/pinch/wrist strengthening progression within 3 weeks 3. Regain forceful grasp for all functional activities within 4-6 weeks Not available 10/25/2023 08:54:07 10/29/2023 [id number] Therapy 1-2 time s per week for 3-4 weeks to regain full ROM and strength. ST. Wrist/elbow AROM/PROM WFL within 2 weeks 2. Begin family services specialist/pinch/wrist strengthening progression within 3 weeks 3. Regain forceful grasp for all functional activities within 4-6 weeks Not available 10/29/2023 09:09:33 10/31/2023 [id number] Therapy 1-2 time s per week for 3-4 weeks to regain full ROM and strength. ST. Wrist/elbow AROM/PROM WFL within 2 weeks 2. Begin family services specialist/pinch/wrist strengthening progression within 3 weeks 3. Regain forceful grasp for all functional activities within 4-6 weeks Not available 10/31/2023 13:29:28 Reason for Referral None Reported. Problems No Known Problems Procedures Surgical History Date Name Laterality Status Provider Name and Address Organization Details Recorded Time OT Therapeutic Exercise completed JOSEPH GREGORY JR, OTR/L, CHT [address] [place], [address], [facility] 10/31/2023 13:29:27 4 PT Hot/Cold Pack completed JOSEPH GREGORY JR, OTR/L, CHT [address] [place], [address], [facility] 10/31/2023 13:29:27 4 OT Therapeutic Exercise completed JOSEPH GREGORY JR, OTR/L, CHT [address] [place], [address], [facility] 10/29/2023 09:18:57 4 PT Hot/Cold Pack completed JOSEPH GREGORY JR, OTR/L, CHT [address] [place], [address], [facility] 10/29/2023 09:09:33 4 OT Therapeutic Exercise completed JOSEPH GREGORY JR, OTR/L, CHT [address] [place], [address], [facility] 10/25/2023 08:54:07 4 PT Hot/Cold Pack completed JOSEPH GREGORY JR, OTR/L, CHT [address] [place], [address], [facility] 10/25/2023 08:54:07 4 OT Therapeutic Exercise completed JOSEPH GREGORY JR, OTR/L, CHT [address] [place], [address], [facility] 10/23/2023 10:14:05 4 PT Hot/Cold Pack completed JOSEPH GREGORY JR, OTR/L, CHT [address] [place], [address], [facility] 10/23/2023 09:20:55 4 OT Therapeutic Exercise completed JOSEPH GREGORY JR, OTR/L, CHT [address] [place], [address], [facility] 10/17/2023 10:30:18 4 PT Hot/Cold Pack completed JOSEPH GREGORY JR, OTR/L, CHT [address] [place], [address], [facility] 10/17/2023 10:02:05 4 OT Therapeutic Exercise completed JOSEPH GREGORY JR, OTR/L, CHT [address] [place], [address], [facility] 10/15/2023 09:32:01 4 PT Hot/Cold Pack completed JOSEPH GREGORY JR, OTR/L, CHT [address] [place], [address], [facility] 10/15/2023 09:32:01 4 OT Therapeutic Exercise completed JOSEPH GREGORY JR, OTR/L, CHT [address] [place], [address], [facility] 10/11/2023 10:10:46 4 PT Hot/Cold Pack completed JOSEPH RGEGORY JR, OTR/L, CHT [address] [place], [address], [facility] 10/11/2023 09:09:15 4 OT Therapeutic Exercise completed JOSEPH GREGORY JR, OTR/L, CHT [address] [place], [address], [facility] 10/09/2023 09:36:31 4 OT Manual Therapy completed JOSEPH GREGORY JR, OTR/L, CHT [address] [place], [address], [facility] 10/09/2023 09:25:10 4 PT Hot/Cold Pack completed JOSEPH GREGORY JR, OTR/L, CHT [address] [place], [address], [facility] 10/09/2023 09:25:10 4 OT Therapeutic Exercise completed JOSEPH GREGORY JR, OTR/L, CHT [address] [place], [address], [facility] 10/02/2023 10:24:48 4 OT Manual Therapy completed JOSEPH GREGORY JR, OTR/L, CHT [address] [place], [address], [facility] 10/02/2023 10:24:48 4 PT Hot/Cold Pack completed JOSEPH GREGORY JR, OTR/L, CHT [address] [place], [address], [facility] 10/02/2023 10:24:48 4 OT Therapeutic Exercise completed JOSEPH GREGORY JR, OTR/L, CHT [address] [place], [address], [facility] 09/27/2023 15:40:41 4 OT Manual Therapy completed JOSEPH GREGORY JR, OTR/L, CHT [address] [place], [address], [facility] 09/27/2023 15:40:37 4 PT Hot/Cold Pack completed JOSEPH GREGORY JR, OTR/L, CHT [address] [place], [address], [facility] 09/27/2023 14:31:25 4 OT Evaluation - Moderate complexity completed JOSEPH GREGORY JR, OTR/L, CHT [address] [place], [address], [facility] 09/24/2023 09:00:28 4 OT Therapeutic Exercise completed JOSEPH GREGORY JR, OTR/L, CHT [address] [place], [address], [facility] 09/24/2023 10:40:54 4 PT Hot/Cold Pack completed JOSEPH GREGORY JR, OTR/L, CHT [address] [place], [address], [facility] 09/24/2023 10:40:56 4 Op Note completed LIONEL ADAN MD [address] [place], [address], [facility] 09/20/2023 14:14:19 3 Orthotic, EWHO, Static Custom completed JOSEPH GREGORY JR, OTR/L, CHT [address] [place], [address], [facility] 06/27/2023 13:52:27 Imaging Results None recorded. Procedure Notes None recorded. Medical Equipment None Reported. Allergies Allergen ID Allergen Name Allergen Category Reaction Reaction Severity Criticality Documentation Date Start Date Code Code System Note Provider Name and Address Organization Details Recorded Time 244636 azithromy ramakrishna medicatio n Not available Not available Not available 06/27/2023 81097 [facility] 13:17:23 Medications Name Sig [...] height Body mass index (BMI) Body weight Pain severity - 0-10 verbal numeric rating [Score] - Reported Provider Name and Address Organization Details Last Updated DateTime 10/31/2023 177.8 cm 30.6 kg/m2 31512.17 g 3 [facility] 10/31/2023 12:45:12 Social History None recorded. 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 Lateral ep icondylitis of right humerus 9839224584 78058 M77.11 [id number] LIONEL ADAN MD SURGERY SCHEDULE [address] [place] [address] 09/20/2023 10:27:32 09/20/2023 10:30:56 [id number] JOSEPH GREGORY JR, OTR/L, CHT PHYSICAL THERAPY / HAND [facility]APY [facility] [address] [address] 09/24/2023 09:23:31 09/25/2023 16:36:10 Lateral epicondylitis of right humerus 0109502150 79953 M77.11 Medial epi condylitis of right elbow joint 0779436662 56558 M77.01 Ulnar nerv e entrapment at elbow 182141355 G56.21 [id number] JOSEPH GREGORY JR, OTR/L, CHT PHYSICAL THERAPY / [facility]APY [facility] [address] [address] 09/27/2023 14:28:43 09/28/2023 04:06:49 Lateral epicondylitis of right humerus 4632301055 93145 M77.11 Medial epi condylitis of right elbow joint 4800587482 49895 M77.01 Ulnar nerv e entrapment at elbow 218457649 G56.21 [id number] LIONEL ADAN MD [facility] [address] [place] [address] 10/03/2023 12:07:48 10/03/2023 12:38:42 Medial epicondylitis of right elbow joint 2479052639 78370 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 Lateral ep icondylitis of right humerus 9383442649 68095 M77.11 [id number] JOSEPH GREGORY JR, OTR/L, CHT PHYSICAL THERAPY / [facility]APY [facility] [address] [place] [address] 10/02/2023 10:07:55 10/03/2023 04:40:55 Lateral epicondylitis of right humerus 9938608232 03668 M77.11 Medial epi condylitis of right elbow joint 1632806787 67916 M77.01 Ulnar nerv e entrapment at elbow 805006224 G56.21 [id number] JOSEPH GREGORY JR, OTR/L, CHT PHYSICAL THERAPY / [facility]APY [facility] [address] [place] [address] 10/09/2023 09:02:04 10/10/2023 04:56:56 Lateral epicondylitis of right humerus 5285269646 78478 M77.11 Medial epi condylitis of right elbow joint 6463614200 67418 M77.01 Ulnar nerv e entrapment at elbow 388824453 G56.21 [id number] JOSEPH GREGORY JR, OTR/L, CHT PHYSICAL THERAPY / [facility]APY [facility] [address] [place] [address] 10/11/2023 08:51:46 10/12/2023 05:05:00 Lateral epicondylitis of right humerus 5034735217 69133 M77.11 Medial epi condylitis of right elbow joint 2814842996 06815 M77.01 Ulnar nerv e entrapment at elbow 562545328 G56.21 [id number] JOSEPH GREGORY JR, OTR/L, CHT PHYSICAL THERAPY / [facility]APY [facility] [address] [place] [address] 10/15/2023 09:14:49 10/16/2023 04:33:44 Lateral epicondylitis of right humerus 4014060235 62870 M77.11 Medial epi condylitis of right elbow joint 0538117748 85910 M77.01 Ulnar nerv e entrapment at elbow 732688168 G56.21 [id number] JOSEPH GREGORY JR, OTR/L, T PHYSICAL THERAPY / HAND [facility]APY [facility] [address] [place] [address] 10/17/2023 09:56:50 10/18/2023 04:25:31 Lateral epicondylitis of right humerus 0550109663 99047 M77.11 Medial epi condylitis of right elbow joint 7334456236 56831 M77.01 Ulnar nerv e entrapment at elbow 900965428 G56.21 [id number] JOSEPH GREGORY JR, OTR/L, T PHYSICAL THERAPY / HAND TH[facility]APY [facility] [address] [place] [address] 10/23/2023 08:49:14 10/24/2023 11:20:54 Lateral epicondylitis of right humerus 0623378756 92791 M77.11 Medial epi condylitis of right elbow joint 4501390934 73173 M77.01 Ulnar nerv e entrapment at elbow 343546273 G56.21 [id number] JOSEPH GREGORY JR, OTR/L, CHT PHYSICAL THERAPY / HAND [facility]APY [facility] [address] [place] [address] 10/25/2023 08:45:14 10/26/2023 05:00:23 Lateral epicondylitis of right humerus 4067216142 15046 M77.11 Medial epi condylitis of right elbow joint 8367818278 89427 M77.01 Ulnar nerv e entrapment at elbow 594630779 G56.21 [id number] LIONEL ADAN MD [facility] [address] [place] [address] 10/31/2023 12:40:23 10/31/2023 13:02:37 Medial epicondylitis of right elbow joint 3447869051 20759 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 Lateral ep icondylitis of right humerus 4247574214 31441 M77.11 Postoperative care 99540 9007 Z48.89 5 weeks s/p medial lateral epicondyle debridemen t with ulnar nerve transposit ion. He continues to heal well. Patient will begin physical therapy. F/U PRN. [id number] JOSEPH GREGORY JR, OTR/L, CHT PHYSICAL THERAPY / HAND [facility]APY [facility] [address] [place] [address] 10/29/2023 08:58:33 10/30/2023 04:46:30 Lateral epicondylitis of right humerus 2414868076 06937 M77.11 Medial epi condylitis of right elbow joint 4806776879 84006 M77.01 Ulnar nerv e entrapment at elbow 902099071 G56.21 [id number] JOSEPH GREGORY JR, OTR/L, CHT PHYSICAL THERAPY / [facility]APY [facility] [address] [place] [address] 10/31/2023 12:40:43 11/01/2023 04:52:10 Lateral epicondylitis of right humerus 6098618552 62369 M77.11 Medial epi condylitis of right elbow joint 5101563870 46165 M77.01 Ulnar nerv e entrapment at elbow 300046284 G56.21 Health Concerns Section Related Observation LastModified by Organization Detai ls LastModified Time None Recorded Concern Status LastModified by Organization Details LastModified Time None Recorded Advance Directives Directive None Recorded Payers Insurance Date Sequence Insurance Name Policy Number Policy Velasco Covered Member ID Velasco Member ID Guarantor Name 11/01/2023 FREIDA Smith Notes Date Note Type Note Provider Name and Address Organization Details Recorded Time 4 text/html PT Functional and ADL AssessmentReported by StaffFunctional AssessmentFor pushing, staff reportscannot perform. For pulling, staff reportscannot perform. For reaching, staff reportscannot perform. For grasping, staff reportsperforms with deficit or compensation. For lifting, staff reportscannot perform. For carrying, staff reportscannot perform. 09-20-2023 LATERAL EPICONDYLE DEBRIDEMENT; RIGHT MEDIAL EPICONDYLE DEBRIDEMENT; R SQUNT, *Performed by Lionel Adan MDThe patient will begin gentle range of motion exercises and nerve glides 3-5 days postoperatively. no use of right hand for ADL's JOSEPH GREGORY JR, OTR/L, CHT [address] [place], [address], [facility] 10/23/2023 10:14:19 4 text/html PT Functional and ADL AssessmentReported by StaffFunctional AssessmentFor pushing, staff reportscannot perform. For pulling, staff reportscannot perform. For reaching, staff reportscannot perform. For grasping, staff reportsperforms with deficit or compensation. For lifting, staff reportscannot perform. For carrying, staff reportscannot perform. 09-20-2023 LATERAL EPICONDYLE DEBRIDEMENT; RIGHT MEDIAL EPICONDYLE DEBRIDEMENT; R SQUNT, *Performed by Lionel Adan MDThe patient will begin gentle range of motion exercises and nerve glides 3-5 days postoperatively. no use of right hand for ADL's JOSEPH GREGORY JR, OTR/L, CHT [address] [place], [address], [facility] 10/25/2023 09:32:52 4 text/html PT Functional and ADL AssessmentReported by StaffFunctional AssessmentFor pushing, staff reportscannot perform. For pulling, staff reportscannot perform. For reaching, staff reportscannot perform. For grasping, staff reportsperforms with deficit or compensation. For lifting, staff reportscannot perform. For carrying, staff reportscannot perform. 09-20-2023 LATERAL EPICONDYLE DEBRIDEMENT; RIGHT MEDIAL EPICONDYLE DEBRIDEMENT; R SQUNT, *Performed by Lionel Adan MDThe patient will begin gentle range of motion exercises and nerve glides 3-5 days postoperatively. no use of right hand for ADL's JOSEPH GREGORY JR, OTR/L, CHT [address] [place], [address], [facility] 10/29/2023 09:53:00 4 text/html POST OP GLOBAL VISITDATE OF SURGERY: 09/20/2023TIME POST SURGERY:5 wksSURGERY:Right lateral condyle debridementRight medial epicondyle debridementRight subcutaneous ulnar nerve transpositionINTERVAL HISTORY: PREOP SYMPTOMSBETTER PAIN LEVEL (VAS)3/10 OVERALL ASSESSMENTIMPROVING NEW SYMPTOMS OR QUESTIONS: Mr. Smith is here for a post op visit. Still having some tenderness, but overall improving. OTHER RECENT SURGERIES: n/a EMPLOYMENT STATUS: w.c. off work due to surgery LIONEL ADAN MD [address] [place], [address], [facility] 10/31/2023 12:58:19 4 text/html PT Functional and ADL AssessmentReported by StaffFunctional AssessmentFor pushing, staff reportscannot perform. For pulling, staff reportscannot perform. For reaching, staff reportscannot perform. For grasping, staff reportsperforms with deficit or compensation. For lifting, staff reportscannot perform. For carrying, staff reportscannot perform. 09-20-2023 LATERAL EPICONDYLE DEBRIDEMENT; RIGHT MEDIAL EPICONDYLE DEBRIDEMENT; R SQUNT, *Performed by Lionel Adan MDThe patient will begin gentle range of motion exercises and nerve glides 3-5 days postoperatively. no use of right hand for ADL's JOSEPH GREGORY JR, OTR/L, CHT [address] [place], [address], [facility] 10/31/2023 14:04:36
--- OUTSIDE RECORDS SUMMARY | 2025-03-26 09:31 | XMS_ITS | Clinical Summary ---
Author Organization [facility] Address [address] [place] [address] Care Team Providers Care Hose Builder Name Role Phone Angela Mcdermott APRN Primary Care Provider [phone] Angely Ayon Unavailable [phone] Allergies Active Allergy Reactions Criticality Noted [...] 60 tablet 2 1 Active HYDROcodone-acet aminophen (Hopkins) 5-325 MG tabletIndication s:Status post lumbar spinal fusion Take 1 tablet by mouth 3 (three) times a day. 90 tablet 1 Active HYDROcodone-acet aminophen (Hopkins) 5-325 MG tabletIndication s:Status post lumbar spinal [...] tremor Immunizations Immunization Administration Dates Next Due Incentient COVID-19 Vaccine (Purple Cap) 12 + 12/30/2020,12/02/2020 [...] of 3 - 19+ 3-dose series) 1999 [id number] Vaccine (3 - season) 2024 12/30/2020, 12/02/2020 [...] this topic Medical Devices Implanted Type Area Supervisor Loading Device Identifier Shelf Expiration Date Model / Serial / Lot Graft Vivigen 1cc - [id number] - [id number] Implanted:Qty : 1 on 02/07/2021 by Josiah Harrell MD at [facility] Allograft N/A: Spine Lumbar [facility]-[id number] 01/19/2022 BL-1500-001 / [id number] / Post Ibf Ui H 11mm 8deg 25/05 - [id number] - [id number] Implanted:Qty : 2 on 02/07/2021 by Josiah Harrell MD at [facility] Cage N/A: Spine Lumbar [employer]-[id number] 08/02/2025 [id number] / [id number] / Pre-Lordosed Jag W/ Line 35mm - [id number] Implanted:Qty : 2 on 02/07/2021 by Josiah Harrell MD at [facility] Nail N/A: Spine Lumbar [employer]-[id number] / / Screw 5.5mm Viper Ti Fen Crtcl Polyax 6mm X 45mm - [id number] Implanted:Qty : 4 on 02/07/2021 by Josiah Harrell MD at [facility] Screw N/A: Spine Lumbar [employer]-[id number] / / Single Inner Setscrew - [id number] Implanted:Qty : 4 on 02/07/2021 by Josiah Harrell MD at [facility] Screw N/A: Spine Lumbar [employer] LP-[id number] / / Screw 5.5mm Viper Ti Fen Crtcl Polyax 5mm X 45mm - [id number] Implanted:Qty : 1 on 02/07/2021 by Josiah Harrell MD at [facility] Screw N/A: Spine Lumbar [employer]-[id number] / / Graft Vivigen 1cc - [id number] Implanted:Qty : 1 on 02/07/2021 at [facility]-[id number] 01/19/2022 BL-1500-001 / / [id number] Insurance ANTH Care Teams Hose Builder Relationship Specialty Start Date End Date Angela Mcdermott APRN [address] [place] [address] PCP - General 01/14/21 Angely Ayon PA [address] [facility] [address] [place] [phone] Physician Basic Combatant Swimmer Neurosurgery 05/25/21
--- OUTSIDE RECORDS SUMMARY | 2025-03-26 09:31 | XMS_ITS | Clinical Summary ---
Author Organization [facility] Address [address] [place] [address] Phone [email or web address] Care Team Providers Care Software Maintenance Engineer Name Role Phone Lionel Crocker MD Primary Care Provider Allergies Active Allergy Reactions Criticality Noted Date [...] to complete this topic Insurance VANDANA Jose [id number] ANTHEM IN COPAY 5 OPT OUT NO COPAY NB Care Teams Software Maintenance Engineer Relationship Specialty Start Date End Date Lionel Crocker MD [address] [place] [address] VANDANA JOSE [id number] PCP - General Vocational Instructor 06/04/20
--- NOTE | 2025-03-26 10:00 | CA_ITS ---
APPROVED REPORT Exam: Exercise Treadmill Technologist: Hilda Nair Ht: 5 ft 10 in Wt: 218 lbs BSA: 2.17 m2 Medical History Medications: Doxepin, Protonix, Venlafaxine ER, Adderall. Stress Test Details Test: Exercise stress testing was performed using a Curtis protocol. HR Resting HR: 80 bpm Max Heart Rate (APMHR): 176.201774 bpm Max HR Achieved: 159 bpm Target HR (85% APMHR): 149.870835 bpm % of APMHR: 90.34 Recovery HR: 112 bpm BP Resting BP: 129.0/84.0 mmHg Max BP: 153.0/92.0 mmHg Recovery BP: 138.0/93.0 mmHg ECG Resting ECG: SR Clinical Highest Stage Achieved: IV Stress ECG Conclusion Symptoms: Right side pain and SOB with peak exercise. Arrhythmias/Ectopy: ST-T Changes: <1.5mm ST depression. Electronically signed by : Nkechi Beverly MD 03/29/2025 18:55:54
== END 2025-03-26 23:59 | disposition home or self-care (01) ==
LOC: RT 09:28
PROVIDERS: PCP Family Medicine; Visit Provider Nurse Practitioner Family
DX: R06.02 Shortness of breath (principal); R07.89 Other chest pain; R42 Dizziness and giddiness; R53.83 Other fatigue; R94.31 Abnormal electrocardiogram [ECG] [EKG]
CPT/HCPCS: 93016; 93017; 93018

== ENCOUNTER 2025-03-27 08:24 | Outpatient (CLI) | payer BC, SELFPAY ==
--- OUTSIDE RECORDS SUMMARY | 2025-03-27 08:26 | XMS_ITS | Clinical Summary ---
Author Organization [facility] Address [address] [place] [address] Phone [email or web address] Care Team Providers Care Senior Interactive Producer Name Role Phone Lionel Crocker MD Primary Care Provider [phone] Allergies Active Allergy Reactions Criticality Noted Date [...] to complete this topic Insurance VANDANA Jose [id number] ANTHEM IN COPAY 5 [facility] Address: [address] [place] [address] OPT OUT NO COPAY NB Care Teams Senior Interactive Producer Relationship Specialty Start Date End Date Lionel Crocker MD [address] [place] [address] VANDANA JOSE [id number] PCP - General Day Haul Or Farm Charter Bus Driver 06/04/20
--- OUTSIDE RECORDS SUMMARY | 2025-03-27 08:27 | XMS_ITS | Clinical Summary ---
Author Organization [facility] Address [address] [place] [address] Care Team Providers Care Trauma Doctor Name Role Phone Angela Mcdermott APRN Primary Care Provider [phone] Angely Ayon Unavailable [phone] Allergies Active Allergy Reactions Criticality Noted [...] 60 tablet 2 1 Active HYDROcodone-acet aminophen ([place]) 5-325 MG tabletIndication s:Status post lumbar spinal fusion Take 1 tablet by mouth 3 (three) times a day. 90 tablet 1 Active HYDROcodone-acet aminophen ([place]) 5-325 MG tabletIndication s:Status post lumbar spinal [...] tremor Immunizations Immunization Administration Dates Next Due ColonaryConcepts COVID-19 Vaccine (Purple Cap) 12 + 12/30/2020,12/02/2020 [...] of 3 - 19+ 3-dose series) 1999 [id number] Vaccine (3 - season) 2024 12/30/2020, 12/02/2020 [...] this topic Medical Devices Implanted Type Area Armored Car Guard And Driver Device Identifier Shelf Expiration Date Model / Serial / Lot Graft Vivigen 1cc - [id number] - [id number] Implanted:Qty : 1 on 02/07/2021 by Josiah Harrell MD at [facility] Allograft N/A: Spine Lumbar [id number] 01/19/2022 BL-1500-001 / [id number] / Post Ibf Ui H 11mm 8deg 25/05 - [id number] - [id number] Implanted:Qty : 2 on 02/07/2021 by Josiah Harrell MD at [facility] Cage N/A: Spine Lumbar [id number] 08/02/2025 [id number] / [id number] / Pre-Lordosed Jag W/ Line 35mm - [id number] Implanted:Qty : 2 on 02/07/2021 by Josiah Harrell MD at [facility] Nail N/A: Spine Lumbar [id number] / / Screw 5.5mm Viper Ti Fen Crtcl Polyax 6mm X 45mm - [id number] Implanted:Qty : 4 on 02/07/2021 by Josiah Harrell MD at [facility] Screw N/A: Spine Lumbar [id number] / / Single Inner Setscrew - [id number] Implanted:Qty : 4 on 02/07/2021 by Josiah Harrell MD at [facility] Screw N/A: Spine Lumbar [id number] / / Screw 5.5mm Viper Ti Fen Crtcl Polyax 5mm X 45mm - [id number] Implanted:Qty : 1 on 02/07/2021 by Josiah Harrell MD at [facility] Screw N/A: Spine Lumbar [id number] / / Graft Vivigen 1cc - [id number] Implanted:Qty : 1 on 02/07/2021 at [facility]-[id number] 01/19/2022 BL-1500-001 / / [id number] Insurance ANTH Care Teams Trauma Doctor Relationship Specialty Start Date End Date Angela Mcdermott APRN [address] [place] [address] PCP - General 01/14/21 Angely Ayon PA [address] [facility] [address] [place] [address] [phone] Physician Finished Goods Stock Clerk Neurosurgery 05/25/21
--- NOTE | 2025-03-27 08:45 | CA_ITS ---
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 Mckeon, RVS Ht: 5 ft 10 in Wt: 218lbs BSA: 2.17 BP: 146/92 mmHg Indications: ABN EKG, SOB, CP, Ex-smoker, Abdominal pain Echo Enhancing Agent Comments: TDS: Lung impedance throughout exam 2D Dimensions IVSd 0.86 cm M: 0.6-1.2 LVEF (Visual) 59.70 % PWd 1.16 cm M: 0.6 - 1.2 LA Volume 31.80 mL LVDd 3.66 cm M: 4.2 - 5.9 LA Volume Index [id number] mL/m2 (M/F) 16-34 LVDs 2.52 cm M: 2.5 - 4.0 Left Atrium 2.75 cm M: 3.0 - 4.0 M-Mode Dimensions RVDd 2.28 cm (0.9-2.6) LA Diam 3.62 cm (1.9-4.0) LVDd 3.70 cm (3.5-5.7) LVDs 2.46 cm (3.5-5.7) IVSd 1.07 cm (0.6-1.1) PWd 0.89 cm (0.6-1.1) EF (Teich) 63.20% EPSs 0.32 cm FS 33.50% EDV (Teich) 58.10 mL TAPSE 2.71 (<1.7) ESV (Teich) 21.40 mL LV Diastology E Decel Time 150 (160-240 msec) E/A Ratio 1.12 MED A' 13.50 cm/s LAT A' 12.60 cm/s Aortic Valve SINGH Index 0.90 cm2/m2 AoV Peak Brian. 131.0 (50-130 cm/s) AO Peak GR. 6.90 mmHg AO Mean GR. 3.40 (<5 mmHg) AO VTI 24.7 (18-25 cm) SINGH (VTI) 2.00 (2.5-4.5 cm2) Mitral Valve MV A Velocity 71.0 (40-130 cm/s) E/A Ratio 1.12 Left Ventricle The left ventricle is normal size. The left ventricular systolic function is normal. The left ventricular ejection fraction is within the normal range. There is normal left ventricular wall thickness. There is normal LV segmental wall motion. The left ventricular diastolic function is normal. LVEF is 55%. Right Ventricle The right ventricle is normal size. The right ventricular systolic function is normal. Atria The left atrium size is normal. The right atrium size is normal. There is no Doppler evidence of interatrial shunt. Aortic Valve The aortic valve opens well. There is no aortic valvular stenosis. No aortic regurgitation is present. Mitral Valve The mitral valve is normal in structure. No evidence of mitral valve stenosis. Trace mitral regurgitation. Tricuspid Valve Tricuspid valve is grossly normal in structure and function. Trace tricuspid regurgitation. There is insufficient TR jet to estimate RVSP. Pulmonic Valve The pulmonic valve is normal in structure and function. Trace pulmonic regurgitation. Great Vessels The aortic root is normal in size. IVC is normal in size and collapses >50% with inspiration. Pericardium There is no pericardial effusion. Other Information Study Quality: Fair Conclusion Normal biventricular systolic function. No significant valvular stenosis or regurgitation. Electronically signed by : Nkechi Beverly MD 03/31/2025 09:09:58
== END 2025-03-27 23:59 | disposition home or self-care (01) ==
LOC: RT 08:25
PROVIDERS: PCP Family Medicine; Visit Provider Nurse Practitioner Family
DX: R94.31 Abnormal electrocardiogram [ECG] [EKG] (principal); R06.02 Shortness of breath; R07.89 Other chest pain; R42 Dizziness and giddiness; R53.83 Other fatigue; R10.9 Unspecified abdominal pain; Z87.891 Personal history of nicotine dependence
CPT/HCPCS: 93306

== ENCOUNTER 2025-03-30 07:25 | Day surgery (SDC) | payer BC, SELFPAY ==
[2025-03-26 10:12] VITALS: BMI 31.5
--- NOTE | 2025-03-30 07:21 | P.HP_ITS ---
History of Present Illness *Admission Date: 03/30/25 *History of present illness: Mr. Smith is a 44-year-old gentleman who was recently admitted on 02/07/2025 with progressive epigastric abdominal pain. His CAT scan showed gastric wall thickening and probable gastritis. He did have leukocytosis. He was given a GI cocktail. At the time of his admission his white blood cell count was 21,000. His stool testing both on December 10, 2023 and again on February 08, 2025 showed enteropathogenic E. coli. The patient was given antibiotics (Levaquin), pantoprazole and sucralfate. He did complete the course of Levaquin. He is improved but continues to have epigastric and retrosternal discomfort, fullness and bloating. He does have a lot of gassiness and minor belching. He reports some early satiety and minor weight loss. He has not had an EGD. His CAT scan showed a normal liver, pancreas and abdominal organs outside of having the mural thickening of the stomach which had worsened. His lab work on admission showed normal hemoglobin 15.8 and hematocrit 46.2 and this declined some with hydration but he has had no melena or hematochezia. [facility] Disclaimer: The information contained in this section may have been updated after the patient was seen, as this information can be updated by other users. Medical History Other chest pain Abnormal ECG Fatigue Dizziness SOB (shortness of breath) Occasional tremors SIRS (systemic inflammatory response syndrome) Gastritis Mood disorder ADHD Surgical History Hx of tonsillectomy H/O elbow surgery H/O vasectomy History of back surgery Family History Other Cancer Diabetes Social History Smoking Status: Never smoker second hand exposure: Yes alcohol intake: current alcohol intake frequency: holidays/special occasions only substance use type: other details: TH[employer] gummies current occupational status: employed Travel in the last 8 weeks?: None Have you lived/traveled outside US in past 30 days?: No Contact w/someone who lives/traveled outside US past 30 days?: No Exposure to someone with infectious disease in past 14 days?: No Do you have a fever (greater than 100.4 F or 38 C)?: No Have you tested positive for COVID-19?: No Exposed to someone with COVID-19 in past 14 days?: No Do you have a sore throat?: No Do you have a cough?: No Do you have any weakness?: No Do you have any diarrhea?: No Are you experiencing any unusual bleeding?: No Do you have any muscle aches/pain?: No Do you have any abdominal pain?: No Are you experiencing loss of taste or smell?: No Other Medical History Have you received the Flu Vaccine for this season: No Have you received the Pneumonia Vaccine: No Review of Systems Review of Systems Review of systems (narrative): Negative *Cardiovascular Comments: Negative *Gastrointestinal Comments: Negative *Genitourinary Comments: Negative *Musculoskeletal Comments: Negative *Neurologic Comments: Negative Meds Home Medications and Allergies Home Medications ?Medication ?Instructions ?Recorded ?Confirmed ?Type dextroamphetamine-amphetamine ER 30 mg PO DAILY 03/30/25 History 30 mg 24hr capsule,extend release (Adderall XR) venlafaxine 150 mg 150 mg PO DAILY 02/07/25 History capsule,extended release 24 hr pantoprazole 40 mg tablet,delayed 40 mg PO BID 30 days #60 tabs 02/08/25 03/30/25 Rx release (Protonix) doxepin 25 mg capsule 50 mg PO QHS Sleep 02/17/25 03/30/25 History New Prescriptions to Start Prescriptions: Allergies Allergy/AdvReac Type Severity Reaction Status Date / Time chlorpheniramine (From Allergy Unknown Unknown Verified 03/30/25 08:53 [facility]) allergy reaction codeine (From [facility]) Allergy Unknown Unknown Verified 03/30/25 08:53 allergy reaction dihydrocodeine (From Allergy Unknown Unknown Verified 03/30/25 08:53 [facility]) allergy reaction phenylephrine (From Allergy Unknown Unknown Verified 03/30/25 08:53 [facility]) allergy reaction pseudoephedrine (From Allergy Unknown Unknown Verified 03/30/25 08:53 [facility]) allergy reaction azithromycin (From Zithromax) Allergy Diarrhea Verified 03/30/25 08:53 prednisone AdvReac Mild Agitated Verified 03/30/25 08:53 Exam *Routine HEENT Exam Head: Present normocephalic Eye: Present EOMI and PERRL ENT: Present mucous membranes moist *Routine Neck Exam Neck: Present supple *Routine Respiratory Exam Respiratory: Present CTA bilaterally *Routine Cardiovascular Exam Cardiovascular: Present RRR *Routine Abdominal Exam Abdominal: Present soft and normoactive bowel sounds; Absent tenderness *Routine Rectal Exam Rectal:: deferred *Routine Genitalia Exam Genitalia:: deferred *Routine Extremities Exam Extremities: Absent cyanosis, clubbing or edema *Routine Skin Exam Skin: Present warm; Absent rash *Routine Neurological Exam Neurological: Present alert and oriented X3 Assessment and Plan *Assessment and plan (1) Dyspepsia: Status: Acute Category: Medical Code(s): R10.13 - Epigastric pain (2) Bloating: Status: Acute Category: Medical Code(s): R14.0 - Abdominal distension (gaseous) (3) Nausea: Status: Acute Category: Medical Code(s): R11.0 - Nausea (4) Epigastric pain: Status: Acute Category: Medical Code(s): R10.13 - Epigastric pain Plan A/P: 1. Epigastric pain/dyspepsia with bloating and nausea is the preprocedural diagnosis. The patient will be anesthetized/sedated using MAC sedation. The patient has been seen and examined. Cardiac and lung assessment prior to the examination is stable. Proceed with planned diagnostic EGD.
[2025-03-30] MEDS: LACTATED RINGERS 1000ML 1,000 ML 50 ML IV (08:51)
[2025-03-30 08:55] VITALS: BP 132/92; PULSE 64; RESP 18; TEMP 36.1; O2SAT 98
--- NOTE | 2025-03-30 09:47 | P.PNANES_ITS ---
[facility] Disclaimer: The information contained in this section may have been updated after the patient was seen, as this information can be updated by other users. Medical History Other chest pain Abnormal ECG Fatigue Dizziness SOB (shortness of breath) Occasional tremors SIRS (systemic inflammatory response syndrome) Gastritis Mood disorder ADHD Surgical History Hx of tonsillectomy H/O elbow surgery H/O vasectomy History of back surgery Family History Other Cancer Diabetes Social History Smoking Status: Never smoker second hand exposure: Yes alcohol intake: current alcohol intake frequency: holidays/special occasions only substance use type: other details: [employer] gummies current occupational status: employed Travel in the last 8 weeks?: None Have you lived/traveled outside US in past 30 days?: No Contact w/someone who lives/traveled outside US past 30 days?: No Exposure to someone with infectious disease in past 14 days?: No Do you have a fever (greater than 100.4 F or 38 C)?: No Have you tested positive for COVID-19?: No Exposed to someone with COVID-19 in past 14 days?: No Do you have a sore throat?: No Do you have a cough?: No Do you have any weakness?: No Do you have any diarrhea?: No Are you experiencing any unusual bleeding?: No Do you have any muscle aches/pain?: No Do you have any abdominal pain?: No Are you experiencing loss of taste or smell?: No [facility] Anesthesia Checklist Patient Identification Patient Identification: Verbal (Name & ) Structural Data Admitted From: Home Planned Operative Procedure/s: egd Consent for Planned Operative Procedure(s) Verified: Yes NPO Status Verified Time NPO: 00:00 Airway Assessment Mallampati Score:: Class III C-Spine Mobility Assessed: Yes TMJ Mobility Assessed: Yes Dentition: Edentulous Neurological Assessment Level of Consciousness: Awake, Alert and Appropriate Anesthesia Plan Anesthesia Risk discussed: Yes Anesthesia Plan: Verified ASA Class: III Anesthesia Type: MAC
--- NOTE | 2025-03-30 09:53 | P.PCN_ITS ---
[facility] Procedure Note Date: 03/30/25 Time: 10:04 Procedure Note:: Upper Endoscopy Procedure Report: Esophagogastroduodenoscopy with cold biopsies Endoscopost: Dane Jc II, MD Referring Physician: Georgi Rose M.D. Date of Procedure: March 30, 2025 Equipment: Olympus GIF-1100 standard upper endoscope Sedation: MAC sedation Indications: Mr. Smith is a 44-year-old gentleman who is here for diagnostic upper endoscopy. He was recently admitted on 02/07/2025 with progressive epigastr ic abdominal pain. His CAT scan showed gastric wall thickening and probable gastritis. He did have leukocytosis. He was given a GI cocktail. At the time of his admission, his white blood cell count was 21,000. His stool testing both on December 10, 2023 and again on February 08, 2025 showed enteropathogenic E. coli. The patient was given antibiotics (Levaquin), pantoprazole and sucralfate. He did complete the course of Levaquin. He is improved but continues to have epigastric and retrosternal discomfort, fullness and bloating. He does have a lot of gassiness and minor belching. He reports some early satiety and minor weight loss. He has not had an EGD. His CAT scan showed a normal liver, pancreas and abdominal organs outside of having the mural thickening of the stomach which had worsened. His lab work on admission showed normal hemoglobin 15.8 and hematocrit 46.2 and this declined some with hydration but he has had no melena or hematochezia. Procedure: Prior to the procedure, a history and physical exam was performed, and patient's medications and allergies were reviewed. The risks, benefits and alternatives of the sedation and procedure were discussed with the patient. All questions were answered and informed consent was obtained. The patient was brought to the procedure room. Patient identification and proposed procedure were verified by the physician and the nurse. The patient was placed in a left lateral decubitus position and the scope was passed under direct vision. Throughout the procedure, the patient's blood pressure, pulse, and oxygen saturations were monitored continuously. The upper GI endoscopy was accomplished without difficulty. The patient tolerated the procedure well. Findings: The scope was passed directly into the upper esophagus and advanced to the fourth portion of duodenum and proximal jejunum. A cold biopsy was taken from the third portion of duodenum for the disaccharidase assay. The proximal jejunum, post bulbar duodenum and duodenal bulb were normal with normal mucosa and conniventes. There was very mild peptic duodenitis of the duodenal bulb. The scope was withdrawn through a normal pylorus into the stomach. There was mild linear antral gastropathy and there was moderate chronic gastritis of the body and fundus. Cold biopsies were taken along the lesser curvature and incisura to rule out H. pylori. Upon retroflexion there was a very small sliding 1 to 2 cm hiatal hernia. The scope was then withdrawn into the esophagus. There was grade A reflux esophagitis (LA classification). There was no evidence of Goldsmith's esophagus. There were no rings, strictures, corrugation or furrowing. The remainder of the esophageal mucosa was normal. Impression: 1. Grade A reflux esophagitis (LA classification) 2. Moderate chronic gastritis with mild antral gastropathy Plan: I will follow-up the biopsies to rule out H. pylori. He has been on pantoprazole. I had recommended dietary measures, Align and herbal Iberogast. I will discuss the findings with the patient and family.
[2025-03-30 10:06] VITALS: BP 101/70; PULSE 73; RESP 16; TEMP 36.1; O2SAT 92
[2025-03-30 10:16] VITALS: BP 104/71; PULSE 61; RESP 16; TEMP 36.1; O2SAT 93
[2025-03-30 10:26] VITALS: BP 103/69; PULSE 79; RESP 17; TEMP 36.1; O2SAT 94
[2025-03-30 10:36] VITALS: BP 111/78; PULSE 68; RESP 19; TEMP 36.1; O2SAT 98
[2025-04-02 14:12] LABS: Interpretation Notes (.); Lactase 0.41 (>/= 14.0); Maltase 49.19 (>/= 110.0); Palatinase 2.85 (>/= 8.5); Reference Notes (.); Sucrase 6.1 (>/= 25.0)
== END 2025-03-30 11:05 | disposition home or self-care (01) ==
PROVIDERS: PCP Family Medicine; Visit Provider Internal Medicine Gastroenterology
PROC: 0DJ08ZZ Inspection of Upper Intestinal Tract, Via Natural or Artificial Opening Endoscopic (ICD-10-PCS; CPT 43239; principal; 2025-03-30 10:00)
DX: K21.00 Gastro-esophageal reflux disease with esophagitis, without bleeding (principal); K29.50 Unspecified chronic gastritis without bleeding; Z88.1 Allergy status to other antibiotic agents
CPT/HCPCS: 43239; 82657; J2003; J2704; J7120